=== PATIENT | female | born 1960 | race Caucasian/White ===

== ENCOUNTER → 2017-11-04 11:47 | Outpatient (CLI) | payer OTHER, SELFPAY ==
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
== END ==
PROVIDERS: Family Provider Family Medicine; PCP Family Medicine; Visit Provider Physician Assistant
DX: S60.211A Contusion of right wrist, initial encounter (principal); S50.11XA Contusion of right forearm, initial encounter
CPT/HCPCS: 73090; 73110

== ENCOUNTER → 2017-11-11 13:39 | Outpatient (CLI) | payer OTHER, SELFPAY ==
--- NOTE | 2017-11-11 13:41 | RAD_ITS ---
STUDY: X-RAY - UNILATERAL RIBS ( RIGHT ) WITH CHEST REASON FOR EXAM: Female, 57 years old. Lower right anterior rib pain following injury. TECHNIQUE - RIBS: 4 view(s) of the ribs. TECHNIQUE - CHEST: Single PA view of the chest. COMPARISON: None. FINDINGS - RIBS: Normal visualized ribs without a demonstrated fracture. FINDINGS - CHEST: Hyperinflation. The lungs are clear. There is no demonstrated pleural abnormality. Normal size heart. Normal mediastinum and reddy. Normal visualized pulmonary arteries. Normal visualized aortic arch and descending thoracic aorta. Normal visualized thoracic spine. Normal visualized ribs, clavicles, and shoulders. There is no demonstrated abnormality of the visualized soft tissue structures of the upper abdomen. RAD/Ribs Uni Min 3V w/PA Chest IMPRESSION: RIBS: Normal x-ray examination of the ribs. CHEST: Normal x-ray examination of the chest. Electronically Signed: Amando Goodman MD at 13:58 EDT Tel [phone], Service support ,
== END ==
PROVIDERS: Family Provider Family Medicine; PCP Family Medicine; Visit Provider Physician Assistant
DX: S20.211A Contusion of right front wall of thorax, initial encounter (principal)
CPT/HCPCS: 71101

== ENCOUNTER → 2018-02-02 13:48 | Outpatient (CLI) | payer OTHER, SELFPAY ==
[2018-02-02 14:37] LABS: Absolute Lymphocyte Count 1.59 X10^3/ul (0.83-4.51); Absolute Neutrophil Count 3.3 X10^3/uL (2.0-7.7); Basophil# 0.02 X10^3/uL; Basophil% 0.4 % (0-1); Eosinophils% 3.7 % (0-5); Hematocrit 39.2 % (37-47); Hemoglobin 12.9 g/dl (12.0-15.0); Lymphocyte # 1.59 X10^3/ul (4.0); Lymphocyte % 29.3 % (19-41); Mean Corp Hgb Conc 32.9 g/gl (32-36); Mean Corpuscular Hgb 29.3 pg (27.0-32.0); Mean Corpuscular Volume 88.9 fL (81-99); Mean Platelet Vol. 10.5 fl (6.2-12.0); Monocyte# 0.27 X10^3/uL; Neutrophil # 3.34 X10^3/uL (2.7-7.7); Neutrophil % 61.6 % (47-70); Platelet Count 216 K/mm3 (150-450); RBC Distribution Width CV 13.1 % (11.6-14.6); RBC Distribution Width SD 42.6 fl (35.1-43.9); Red Blood Count 4.41 M/mm3 (4.2-5.4); White Blood Count 5.4 K/mm3 (4.4-11.0)
[2018-02-02 14:48] LABS: POSITIVE COUNT NO; POSITIVE DIFFERENTIAL NO; POSITIVE MORPHOLOGY NO
[2018-02-02 14:57] LABS: Albumin, Serum 3.9 g/dL (3.2-5.0); BUN 16 mg/dL (7-18); BUN/Creat Ratio 19.8 RATIO (10-20); Calcium,Total 9.4 mg/dL (8.5-10.1); Chloride 104 mmol/L (98-107); Creatinine, Serum 0.81 mg/dL (0.55-1.02); EST Glomerular Filtration Rate 77 mL/min (>60); Est Glom Filt Rate - Afr Amer 93 mL/min (>60); Glucose 84 mg/dL (74-106); Magnesium 2.2 mg/dL (1.6-2.6); Phosphorus 3.2 mg/dL (2.5-4.9); Potassium 3.8 mmol/L (3.5-5.1); Sodium Level 139 mmol/L (136-145)
[2018-02-02 15:04] LABS: Vitamin D,25 Hydroxy 38.7 ng/mL (29.95-100.01)
[2018-02-02 15:05] LABS: PTHIN 51.6 pg/mL (18.4-80.1)
[2018-02-02 15:17] LABS: Microalbumin,Random Urine 5.6 mg/L (NO RANGE EST.); Microalbumin:Creatinine Ratio 16.4 mg/g CRE (<30 mg/g CRE)
[2018-02-04 09:54] LABS: Cholesterol 213 mg/dL (200); High Density Lipoprotein 77 mg/dL; Triglycerides 80 mg/dL; Very Low Density Lipoprotein 16 mg/dL (5-40)
[2018-02-04 10:14] LABS: Hemoglobin A1c 5.5 % (4.2-6.3)
== END ==
PROVIDERS: Family Provider Family Medicine; PCP Family Medicine; Visit Provider Internal Medicine Nephrology
DX: N18.2 Chronic kidney disease, stage 2 (mild) (principal); E55.9 Vitamin D deficiency, unspecified
CPT/HCPCS: 36415; 80061; 80069; 82043; 82306; 82570; 83036; 83735; 83970; 85025

== ENCOUNTER → 2018-09-01 12:22 | Outpatient (CLI) | payer OTHER, SELFPAY ==
--- NOTE | 2018-09-01 12:26 | BI_ITS ---
MAMMOGRAPHY - BILATERAL SCREENING REASON FOR EXAM: Female, 57 years old. Routine annual screening examination. PERTINENT HISTORY: Sister with breast cancer. TECHNIQUE: Digital bilateral breast flex (3D mammographic acquisition) in the CC and MLO projections. 2-D mediolateral oblique (MLO) and craniocaudad (CC) views of both breasts were obtained. CAD: Full Field Digital Mammography with Computer Added Detection was performed. COMPARISON: Comparison is made with prior abdomen examination dated June 24, 2017. FINDINGS: Breast Composition: The breasts are heterogeneously dense, which may obscure small masses. There are no dominant masses or suspicious calcifications. No other significant abnormalities are identified. There has been no significant change since the prior study. BI/SCREENING MAMM (CAD), BILAT IMPRESSION: Stable bilateral screening mammogram. Yearly follow-up mammogram recommended. (A) ASSESSMENT CATEGORY: BIRADS Category 1: Negative. A letter regarding these results will be sent to the patient by the facility within 30 days. Approximately 10% of breast cancers are not detected by mammography. A normal mammogram should not delay biopsy of a clinically suspicious abnormality. [id number] Electronically Signed: Amando Goodman, at 13:33 EDT , Service support ,
== END ==
PROVIDERS: Family Provider Family Medicine; PCP Family Medicine; Visit Provider Family Medicine
DX: Z12.31 Encounter for screening mammogram for malignant neoplasm of breast (principal); Z80.3 Family history of malignant neoplasm of breast
CPT/HCPCS: 77063; 77067

== ENCOUNTER 2018-11-22 13:30 | Outpatient (RCR) | payer OTHER, SELFPAY ==
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
--- NOTE | 2018-11-22 13:47 | HP.PTDCSUM ---
HP - PT D/C Summary It has been my pleasure to treat LIAM WELLS under orders from Jose Antonio King MD, for the diagnosis of Positional vertigo chronic for a total of 2 visit(s). Discharge Date: 11/22/18 Please see the following information for a summary of their discharge status. - Subjective Subjective: No bad experiences with minimal R sidelying(it felt wierd after years). No dizzyness. Balance feels OK. No f/u with doctor scheduled. - Overall Improvement % Improvement: 100 - Objective Objective/Function: No dizzyness to day with MSQ positions OR HD/roll test. No nystagmus. Balance looks good. - Goals Goal 1:: Roll on right side to sleep without hesitation or spinning. Goal Progress: Goal Met - Plan Plan: D/C - D/C Information Discharge Comments: Pt doing well and feeling better about rolling on right side. Will contact doctor if dizzyness returns. If there are questions or concerns regarding this patient's physical therapy, please feel free to call me at [phone]. Thank you for the referral of this patient. Sincerely, Ganga Bray, DPT, OCS, CSCS
== END 2018-11-22 19:00 | disposition home or self-care (01) ==
LOC: PT 13:30
PROVIDERS: Family Provider Family Medicine; PCP Family Medicine; Referring Provider Family Medicine; Visit Provider Family Medicine
DX: H81.10 Benign paroxysmal vertigo, unspecified ear (principal)
CPT/HCPCS: 97162; 97530

== ENCOUNTER → 2019-01-24 10:07 | Outpatient (CLI) | payer OTHER, SELFPAY ==
[2017-11-11 13:39] VITALS: BMI 22.1
[2019-01-24 12:31] LABS: Hematocrit 38.9 % (37-47); Hemoglobin 12.7 g/dL (12.0-15.0); Mean Corp Hgb Conc 32.6 g/dL (32-36); Mean Corpuscular Hgb 29.1 pg (27.0-32.0); Mean Corpuscular Volume 89.2 fL (81-99); Platelet Count 231 K/mm3 (150-450); RBC Distribution Width CV 12.6 % (11.6-14.6); Red Blood Count 4.36 M/mm3 (4.2-5.4)
[2019-01-24 12:39] LABS: Albumin, Serum 3.8 g/dL (3.2-5.0); BUN 17 mg/dL (7-18); Calcium,Total 9.3 mg/dL (8.5-10.1); Chloride 106 mmol/L (98-107); Creatinine, Serum 0.85 mg/dL (0.55-1.02); EST Glomerular Filtration Rate 72 mL/min (>60); Est Glom Filt Rate - Afr Amer 87 mL/min (>60); Glucose 87 mg/dL (74-106); Magnesium 2.2 mg/dL (1.6-2.6); Phosphorus 3.3 mg/dL (2.5-4.9); Sodium Level 138 mmol/L (136-145)
[2019-01-24 12:45] LABS: Hemoglobin A1c 5.4 % (4.2-6.3)
[2019-01-24 12:46] LABS: Vitamin D,25 Hydroxy 33.8 ng/mL (29.95-100.01)
[2019-01-24 12:58] LABS: Microalbumin:Creatinine Ratio 184.8 mg/g CRE (<30 mg/g CRE); PTHIN 52.2 pg/mL (18.4-80.1)
== END ==
PROVIDERS: Family Provider Family Medicine; PCP Family Medicine; Visit Provider Internal Medicine Nephrology
DX: R73.01 Impaired fasting glucose (principal); N18.2 Chronic kidney disease, stage 2 (mild); E55.9 Vitamin D deficiency, unspecified
CPT/HCPCS: 36415; 80069; 82043; 82306; 82570; 83036; 83735; 83970; 85027

== ENCOUNTER → 2019-09-07 11:23 | Outpatient (CLI) | payer OTHER, SELFPAY ==
[2019-06-10 10:18] VITALS: BMI 22.1
--- NOTE | 2019-09-07 11:27 | BI_ITS ---
MAMMOGRAPHY - BILATERAL SCREENING REASON FOR EXAM: Female, 58 years old. Routine annual screening examination. PERTINENT HISTORY: Sister with breast cancer. TECHNIQUE: Digital bilateral breast flex (3D mammographic acquisition) in the CC and MLO projections. 2-D mediolateral oblique (MLO) and craniocaudad (CC) views of both breasts were obtained. CAD: Full Field Digital Mammography with Computer Added Detection was performed. COMPARISON: Comparison is made with prior study dated September 01, 2018. FINDINGS: Breast Composition: The breasts are heterogeneously dense, which may obscure small masses. There are no dominant masses or suspicious calcifications. A tissue clip marker is once again seen in the anterior retroareolar region of the right breast. No other significant abnormalities are identified. There has been no significant change since the prior study. BI/SCREENING MAMM (CAD), BILAT IMPRESSION: Stable bilateral screening mammogram. Yearly follow-up mammogram recommended. (A) ASSESSMENT CATEGORY: BIRADS Category 2: Benign. A letter regarding these results will be sent to the patient by the facility within 30 days. Approximately 10% of breast cancers are not detected by mammography. A normal mammogram should not delay biopsy of a clinically suspicious abnormality. [id number] Electronically Signed: Amando Goodman, at 13:14 EDT , Service support ,
== END ==
PROVIDERS: PCP Family Medicine; Referring Provider Family Medicine; Visit Provider Family Medicine
DX: Z12.31 Encounter for screening mammogram for malignant neoplasm of breast (principal); Z80.3 Family history of malignant neoplasm of breast
CPT/HCPCS: 77067

== ENCOUNTER → 2020-01-24 11:13 | Outpatient (CLI) | payer OTHER, SELFPAY ==
[2019-06-10 10:18] VITALS: BMI 22.1
[2020-01-24 13:38] LABS: Absolute Lymphocyte Count 1.26 X10^3/uL (0.83-4.51); Basophil# 0.02 X10^3/uL; Basophil% 0.3 % (0-1); Eosinophil# 0.21 X10^3/uL; Eosinophils% 3.6 % (0-5); Hematocrit 39.7 % (37-47); Hemoglobin 13.2 g/dL (12.0-15.0); Lymphocyte # 1.26 X10^3/ul (4.0); Lymphocyte % 21.4 % (19-41); Mean Corp Hgb Conc 33.2 g/dL (32-36); Mean Corpuscular Volume 90.2 fL (81-99); Mean Platelet Vol. 11.2 fl (6.2-12.0); Monocyte# 0.41 X10^3/uL; NRBC Flagged by Analyzer 0 % (0-5); Neutrophil # 3.96 X10^3/uL (2.7-7.7); Neutrophil % 67.4 % (47-70); Platelet Count 250 K/mm3 (150-450); RBC Distribution Width CV 12.7 % (11.6-14.6); RBC Distribution Width SD 42.1 fl (35.1-43.9); White Blood Count 5.9 K/mm3 (4.4-11.0)
[2020-01-24 13:46] LABS: Microalbumin,Random Urine 9.5 mg/L (NO RANGE EST.); Microalbumin:Creatinine Ratio 59.7 mg/g CRE (<30 mg/g CRE)
[2020-01-24 13:55] LABS: Magnesium 2.1 mg/dL (1.6-2.6)
[2020-01-24 13:59] LABS: PTHIN 58.1 pg/mL (18.4-80.1)
[2020-01-24 14:02] LABS: Vitamin D,25 Hydroxy 43.9 ng/mL
[2020-01-29 15:34] LABS: Albumin, Serum 3.9 g/dL (3.2-5.0); BUN 19 mg/dL (7-18); Calcium,Total 9.1 mg/dL (8.5-10.1); Chloride 104 mmol/L (98-107); Creatinine, Serum 0.76 mg/dL (0.55-1.02); EST Glomerular Filtration Rate 82 mL/min (>60); Est Glom Filt Rate - Afr Amer 100 mL/min (>60); Glucose 76 mg/dL (74-106); Phosphorus 2.8 mg/dL (2.5-4.9); Potassium 4.4 mmol/L (3.5-5.1); Sodium Level 138 mmol/L (136-145)
== END ==
PROVIDERS: PCP Family Medicine; Visit Provider Internal Medicine Nephrology
DX: E55.9 Vitamin D deficiency, unspecified (principal); N18.2 Chronic kidney disease, stage 2 (mild); R80.9 Proteinuria, unspecified
CPT/HCPCS: 36415; 80069; 82043; 82306; 82570; 83735; 83970; 85025

== ENCOUNTER 2020-04-20 09:11 | Emergency (ER) | payer OTHER, SELFPAY ==
[2020-03-26 12:29] VITALS: BMI 22.1
[2020-04-20 09:12] VITALS: BP 126/69; PULSE 59; RESP 17; TEMP 36.4; O2SAT 100; BMI 23.3
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
--- NOTE | 2020-04-20 09:41 | RAD_ITS ---
STUDY: X-RAY - SACRUM/COCCYX REASON FOR EXAM: Female, 59 years old. pt fell backwards this morning TECHNIQUE: 3 view(s) of the sacrum and coccyx were obtained. COMPARISON: None. FINDINGS: Normal bilateral sacroiliac joints. Normal visualized sacral ala and fused sacral bodies. Normal sacrococcygeal junction with a normal angulation. Normal coccygeal segments. The presacral soft tissue structures are unremarkable. RAD/Sacrum-Coccyx min 2 Views IMPRESSION: Normal x-rays of the sacrum and coccyx. Electronically Signed: Jas Bermeo MD at 10:40 EDT Tel , Service support ,
--- NOTE | 2020-04-20 09:42 | ED.VIS.GEN ---
History of Present Illness Chief Complaint: Fall Narrative: This patient is a 59-year-old female who presents after a fall. She was sweeping the barn and she tripped over something falling backward and striking her head on the concrete floor. No loss of consciousness. She is not anticoagulated. She complains of a mild headache as well as mild neck pain and mild pain at her tailbone. No injuries to the extremities. She does report nausea. She otherwise denies recent illness. Past Medical History - Allergies and Home Meds Allergies/Adverse Reactions: Allergies bee venom protein (honey bee) Allergy (Verified 04/20/20 09:12) internal itching clindamycin Allergy (Verified 04/20/20 09:12) Rash Sulfa (Sulfonamide Antibiotics) Allergy (Verified 04/20/20 09:12) Unknown Primary Care Physician: Jose Antonio King MD [Primary Care Provider] - Past Medical History: - - Hypertension Smoking Status: Never smoker Review of Systems All systems negative except as indicated General: Denies: Fever Eyes: Denies: Visual changes - bilaterally ENT: Denies: Bilateral ear pain Cardiovascular: Denies: Chest pain Respiratory: Denies: Dyspnea Gastrointestinal: Reports: Nausea. Denies: Diarrhea Musculoskeletal: Reports: Neck pain. Denies: Myalgias, Arthralgias, Extremity Pain Neurological: Reports: Headache Hematologic: Denies: Easy bruising Allergy: Denies: Uticaria Physical Exam Vital Signs/Narrative: Vital Signs Temp Pulse Resp BP Pulse Ox 04/20/20 09:12 97.6 F L 59 L 17 126/69 H 100 Inital Vital Signs reviewed: Yes General: Well nourished Head: - - Patient has a 2 cm occipital scalp laceration Eyes: Perrl, EOMI ENT: Moist mucous membranes Neck: Supple Cardiovascular: Regular rate, Regular rhythm Respiratory: No distress, CTA bilaterally Abdomen: Soft, Nontender, Nondistended Back: Nontender Extremities: Nontender, - - Active full range of motion x4 Skin: Normal color Neurological: Alert, Oriented x3, - - GCS 15 no focal or lateralizing neurological deficits Psychological: Normal affect Diagnostic/Tx/Re-eval Impressions Brain CT 04/20/20 09:41 IMPRESSION: Mild atrophy no evidence of acute hemorrhage infarct or edema right posterior parietal soft tissue edema and laceration. Stable head CT since August 16, 2014 noting a prominent vascular groove seen in the right occipital and parietal bones less likely a fracture or recurrent fracture. Electronically Signed: Lula Sweeney MD at 10:25 EDT Tel , Service support , Cervical Spine CT 04/20/20 09:41 IMPRESSION: No acute fracture or subluxation. Electronically Signed: Jas Bermeo MD at 10:45 EDT Tel , Service support , Sacrum and Coccyx X-Ray 04/20/20 09:41 IMPRESSION: Normal x-rays of the sacrum and coccyx. Electronically Signed: Jas Bermeo MD at 10:40 EDT Tel , Service support , 04/20/20 09:41 Brain/Head without Contrast [CT] Stat Spine Cervical without Contras [CT] Stat Xray Coccyx [Sacrum-Coccyx min 2 Views] [RAD] Stat - Medical Decision Making Imaging negative as above. No acute fractures no intracranial hemorrhage. Laceration was anesthetized with 4 cc of 1% lidocaine without epinephrine. Wound was cleansed with sterile saline. Laceration was closed with 4 lior. Patient advised on local wound care. She does understand to return for new or worsening symptoms. The patient was discharged. ED Disposition - Plan for ED Patient: Disposition: Home or Assisted Living Diagnosis: Scalp laceration, Closed head injury, Coccyx contusion Instructions: ED Laceration Scalp Sutures or [place], ED Fall Uncertain Cause, ED Head Injury Adult Referrals: Jose Antonio King MD [Primary Care Provider] -
[2020-04-20 11:17] VITALS: BP 137/87; PULSE 72; RESP 19; O2SAT 97
== END 2020-04-20 11:18 | disposition home or self-care (01) ==
PROVIDERS: Emergency Provider Emergency Medicine; PCP Family Medicine
DX: S01.01XA Laceration without foreign body of scalp, initial encounter (principal); S30.0XXA Contusion of lower back and pelvis, initial encounter; W01.198A Fall on same level from slipping, tripping and stumbling with subsequent striking against other object, initial encounter; Y93.89 Activity, other specified; Y92.71 Barn as the place of occurrence of the external cause; Y99.9 Unspecified external cause status; I10 Essential (primary) hypertension
CPT/HCPCS: 12001; 70450; 72125; 72220; 99283

== ENCOUNTER 2020-06-11 11:23 | Emergency (ER) | payer OTHER, SELFPAY ==
[2020-06-11 11:24] VITALS: BP 145/75; PULSE 84; RESP 16; TEMP 36.2; O2SAT 98; BMI 26.8
[2020-06-11 11:32] VITALS: O2SAT 98
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
[2020-06-11] MEDS: HYDROcodone Bitartrate/Apap 5/325 Tablet PO (14:31)
[2020-06-11 14:32] VITALS: BP 138/74; PULSE 71; RESP 16; O2SAT 98
== END 2020-06-11 14:48 | disposition home or self-care (01) ==
PROVIDERS: Emergency Provider Emergency Medicine; PCP Family Medicine
DX: S82.54XA Nondisplaced fracture of medial malleolus of right tibia, initial encounter for closed fracture (principal); S83.92XA Sprain of unspecified site of left knee, initial encounter; S20.211A Contusion of right front wall of thorax, initial encounter; S80.811A Abrasion, right lower leg, initial encounter; V89.2XXA Person injured in unspecified motor-vehicle accident, traffic, initial encounter; Y93.89 Activity, other specified; Y92.9 Unspecified place or not applicable; Y99.9 Unspecified external cause status
CPT/HCPCS: 71101; 73564; 73610; 73630; 99285

== ENCOUNTER → 2020-08-13 12:01 | Outpatient (CLI) | payer OTHER, SELFPAY ==
[2020-08-13 12:53] LABS: Absolute Lymphocyte Count 1.16 X10^3/uL (0.83-4.51); Absolute Neutrophil Count 3.3 X10^3/uL (2.0-7.7); Basophil# 0.03 X10^3/uL; Basophil% 0.6 % (0-1); Eosinophil# 0.17 X10^3/uL; Eosinophils% 3.4 % (0-5); Hematocrit 39.4 % (37-47); Hemoglobin 12.8 g/dL (12.0-15.0); Lymphocyte # 1.16 X10^3/ul (4.0); Lymphocyte % 23.2 % (19-41); Mean Corp Hgb Conc 32.5 g/dL (32-36); Mean Corpuscular Volume 89.1 fL (81-99); Mean Platelet Vol. 10.4 fl (6.2-12.0); Monocyte# 0.35 X10^3/uL; NRBC Flagged by Analyzer 0 % (0-5); Neutrophil # 3.28 X10^3/uL (2.7-7.7); Neutrophil % 65.6 % (47-70); Platelet Count 258 K/mm3 (150-450); RBC Distribution Width CV 12.8 % (11.6-14.6); RBC Distribution Width SD 42.4 fl (35.1-43.9); Red Blood Count 4.42 M/mm3 (4.2-5.4)
[2020-08-13 13:12] LABS: Vitamin D,25 Hydroxy 37.6 ng/mL
[2020-08-13 13:23] LABS: Hemoglobin A1c 5.5 % (3.8-5.6)
[2020-08-13 13:33] LABS: ALB/GLOB Ratio 1.2 RATIO (0.9-2.4); AST(SGOT) 14 U/L (15-37); Alanine Aminotransfer ALT/SGPT 22 U/L (13-56); Albumin, Serum 3.8 g/dL (3.2-5.0); Alkaline Phosphatase 78 U/L (45-117); Anion Gap 5 (5-15); BUN 16 mg/dL (7-18); BUN/Creat Ratio 23.3 RATIO (10-20); Calcium,Total 9.5 mg/dL (8.5-10.1); Chloride 104 mmol/L (98-107); Cholesterol 219 mg/dL (200); Creatinine, Serum 0.69 mg/dL (0.55-1.02); EST Glomerular Filtration Rate 92 mL/min (>60); Est Glom Filt Rate - Afr Amer 111 mL/min (>60); Globulin 3.2 g/dL (2.2-4.2); Glucose 90 mg/dL (74-106); High Density Lipoprotein 72 mg/dL; Potassium 3.9 mmol/L (3.5-5.1); Sodium Level 138 mmol/L (136-145); Thyroid Stim Hormone (TSH) 2.51 uIU/mL (0.358-3.74); Triglycerides 75 mg/dL; Very Low Density Lipoprotein 15 mg/dL (5-40)
== END ==
PROVIDERS: PCP Family Medicine; Visit Provider Family Medicine
DX: I10 Essential (primary) hypertension (principal); E55.9 Vitamin D deficiency, unspecified; R80.9 Proteinuria, unspecified; R73.01 Impaired fasting glucose
CPT/HCPCS: 36415; 80053; 80061; 82306; 83036; 84443; 85025

== ENCOUNTER → 2020-09-25 11:23 | Outpatient (CLI) | payer OTHER, SELFPAY ==
--- NOTE | 2020-09-25 11:29 | BI_ITS ---
MAMMOGRAPHY - BILATERAL SCREENING REASON FOR EXAM: Female, 59 years old. Routine annual screening examination. PERTINENT HISTORY: Sister with breast cancer. TECHNIQUE: Digital bilateral breast mark (3D mammographic acquisition) in the CC and MLO projections. 2-D mediolateral oblique (MLO) and craniocaudad (CC) views of both breasts were obtained. CAD: Full Field Digital Mammography with Computer Added Detection was performed. COMPARISON: Comparison is made with prior study 09/07/2019 and 09/01/2018. FINDINGS: Breast Composition: The breasts are heterogeneously dense, which may obscure small masses. There are no dominant masses or suspicious calcifications. A tissue clip marker is once again seen in the anterior retroareolar region of the right breast. No other significant abnormalities are identified. There has been no significant change since the prior study. BI/SCRN MAMM (CAD)W/MARK BILAT IMPRESSION: Stable bilateral screening mammogram. Yearly follow-up mammogram recommended. (A) ASSESSMENT CATEGORY: BIRADS Category 2: Benign. A letter regarding these results will be sent to the patient by the facility within 30 days. Approximately 10% of breast cancers are not detected by mammography. A normal mammogram should not delay biopsy of a clinically suspicious abnormality. [id number] Electronically Signed: Amando Goodman MD at 9:54 EDT , Service support ,
--- NOTE | 2020-09-25 11:34 | BD_ITS ---
STUDY: DUAL ENERGY X-RAY ABSORPTIOMETRY / DXA REASON FOR EXAM: Female, 59 years old. V76.12ScreeningBONE DENSITY REASON FOR EXAM TECHNIQUE: Bone Mineral Density (BMD) measurements of lumbar spine and bilateral hips were obtained. COMPARISON: None. FINDINGS: Lumbar Spine (L1-L4): g/cm2 (1.048) / T-score (-1.0) / Z-score (0.3) Findings are suggestive of normal bone density with a low fracture risk. Left Femur Total: g/cm2 (0.676) / T-score (-2.6) / Z-score (-1.6) Left Femoral Neck: g/cm2 (0.745) / T-score (-2.1) / Z-score (-0.8) Right Femur Total: g/cm2 (0.668) / T-score (-2.7) / Z-score (-1.7) Right Femoral Neck: g/cm2 (0.759) / T-score (-2.0) / Z-score (-0.7) BD/Dexa Bone Density Study IMPRESSION: The patient is considered osteoporotic as outlined below according to World Dejon Organization (WHO) criteria with a high fracture risk. Reference Information: The T-score is the number of standard deviations above or below the standard which is normal for young adults at their peak bone mineral density. The World Health Organization (WHO) interprets the T-scores as follows: Above -1 Normal bone density Between -1 and -2.5 Osteopenia Equal to / or below -2.5 Osteoporosis As a practical clinical guideline, osteopenia may be graded as follows: Mild -1 through -1.5 Moderate -1.6 through -2.0 Severe -2.1 through -2.4 The Z-score is the number of standard deviations above or below age-matched controls. A Z-score of less than -1.5 would be considered abnormal. References: 1. NIH Osteoporosis and Related Bone Diseases www osteo.org 2. International Society for Clinical Densitometry www iscd.org 3. National Osteoporosis Foundation www nof.org Electronically Signed: Amando Goodman MD at 10:48 EDT , Service support ,
== END ==
PROVIDERS: PCP Family Medicine; Referring Provider Family Medicine; Visit Provider Family Medicine
DX: Z12.31 Encounter for screening mammogram for malignant neoplasm of breast (principal); Z13.820 Encounter for screening for osteoporosis
CPT/HCPCS: 77063; 77067; 77080

== ENCOUNTER → 2020-10-09 15:58 | Outpatient (CLI) | payer OTHER, SELFPAY ==
[2020-10-09 17:57] LABS: Vitamin D,25 Hydroxy 44.6 ng/mL
== END ==
PROVIDERS: PCP Family Medicine; Referring Provider Family Medicine; Visit Provider Family Medicine
DX: E55.9 Vitamin D deficiency, unspecified (principal)
CPT/HCPCS: 36415; 82306

== ENCOUNTER → 2021-02-26 15:05 | Outpatient (CLI) | payer OTHER, SELFPAY ==
[2021-02-26 17:33] LABS: Hematocrit 40.4 % (37-47); Hemoglobin 13.3 g/dL (12.0-15.0); Mean Corp Hgb Conc 32.9 g/dL (32-36); Mean Corpuscular Hgb 29.3 pg (27.0-32.0); Mean Platelet Vol. 10.4 fl (6.2-12.0); Platelet Count 269 K/mm3 (150-450); RBC Distribution Width CV 13.2 % (11.6-14.6); Red Blood Count 4.54 M/mm3 (4.2-5.4); White Blood Count 6.9 K/mm3 (4.4-11.0)
[2021-02-26 17:47] LABS: Albumin, Serum 3.6 g/dL (3.2-5.0); BUN 22 mg/dL (7-18); BUN/Creat Ratio 30.2 RATIO (10-20); Calcium,Total 9.4 mg/dL (8.5-10.1); Chloride 105 mmol/L (98-107); Creatinine, Serum 0.73 mg/dL (0.55-1.02); EST Glomerular Filtration Rate 86 mL/min (>60); Est Glom Filt Rate - Afr Amer 104 mL/min (>60); Glucose 90 mg/dL (74-106); Magnesium 2.3 mg/dL (1.6-2.6); Phosphorus 3.3 mg/dL (2.5-4.9); Potassium 3.9 mmol/L (3.5-5.1); Sodium Level 137 mmol/L (136-145)
[2021-02-26 17:55] LABS: Vitamin D,25 Hydroxy 62.7 ng/mL
[2021-02-26 18:05] LABS: Microalbumin,Random Urine 10.9 mg/L (NO RANGE EST.); Microalbumin:Creatinine Ratio 38.4 mg/g CRE (<30 mg/g CRE)
== END ==
PROVIDERS: PCP Family Medicine; Referring Provider Internal Medicine Nephrology; Visit Provider Internal Medicine Nephrology
DX: E55.9 Vitamin D deficiency, unspecified (principal); R80.9 Proteinuria, unspecified; N18.2 Chronic kidney disease, stage 2 (mild)
CPT/HCPCS: 36415; 80069; 82043; 82306; 82570; 83735; 85027

== ENCOUNTER → 2021-06-09 12:50 | Outpatient (CLI) | payer OTHER, SELFPAY ==
[2021-06-09] MEDS: Zoledronic Acid 5 MG 100 ML 300 MG IV (13:09)
[2021-06-09] MEDS: 0.9% NaCl Peripheral Flush Adult/Peds IV (13:14)
[2021-06-09 13:16] VITALS: BP 114/66; PULSE 54; RESP 16; TEMP 36.4; O2SAT 100
[2021-06-09 13:35] VITALS: BP 116/65; PULSE 60
== END ==
PROVIDERS: PCP Family Medicine; Referring Provider Internal Medicine Endocrinology, Diabetes & Metabolism; Visit Provider Internal Medicine Endocrinology, Diabetes & Metabolism
DX: M81.0 Age-related osteoporosis without current pathological fracture (principal)
CPT/HCPCS: 96365; A4216; J3489

== ENCOUNTER 2021-09-26 09:52 | Outpatient (CLI) | payer OTHER, SELFPAY ==
--- NOTE | 2021-09-26 09:54 | BI_ITS ---
MAMMOGRAPHY - BILATERAL SCREENING REASON FOR EXAM: Female, 60 years old. Routine annual screening examination. PERTINENT HISTORY: Sister with breast cancer. TECHNIQUE: Digital bilateral breast mark (3D mammographic acquisition) in the CC and MLO projections. 2-D mediolateral oblique (MLO) and craniocaudad (CC) views of both breasts were obtained. CAD: Full Field Digital Mammography with Computer Added Detection was performed. COMPARISON: Comparison is made with prior examination dated 09/25/2020 and 09/07/2019. FINDINGS: Breast Composition: The breasts are heterogeneously dense, which may obscure small masses. There are no dominant masses or suspicious calcifications. A tissue clip marker is seen within a 6.8 mm nodule in the retroareolar region of the right breast. Stable small bilateral axillary lymph nodes. No other significant abnormalities are identified. There has been no significant change since the prior study. BI/SCRN MAMM (CAD)W/MARK BILAT IMPRESSION: Stable bilateral screening mammogram. Yearly follow-up mammogram recommended. (A) ASSESSMENT CATEGORY: BIRADS Category 2: Benign. A letter regarding these results will be sent to the patient by the facility within 30 days. Approximately 10% of breast cancers are not detected by mammography. A normal mammogram should not delay biopsy of a clinically suspicious abnormality. [id number] Electronically Signed: Amando Goodman MD at 10:37 EDT ,
== END 2021-09-26 23:59 | disposition home or self-care (01) ==
LOC: OPBI 09:53
PROVIDERS: PCP Family Medicine; Visit Provider Family Medicine
DX: Z12.31 Encounter for screening mammogram for malignant neoplasm of breast (principal); Z80.3 Family history of malignant neoplasm of breast
CPT/HCPCS: 77063; 77067

== ENCOUNTER → 2022-01-21 | Outpatient (CLI) | payer OTHER, SELFPAY ==
[2022-01-21 18:09] LABS: Hematocrit 37.4 % (37-47); Hemoglobin 12.5 g/dL (12.0-15.0); Mean Corp Hgb Conc 33.4 g/dL (32-36); Mean Corpuscular Hgb 29.5 pg (27.0-32.0); Mean Corpuscular Volume 88.2 fL (81-99); Mean Platelet Vol. 10.5 fl (6.2-12.0); Platelet Count 218 K/mm3 (150-450); RBC Distribution Width CV 12.9 % (11.6-14.6); RBC Distribution Width SD 41.5 fl (35.1-43.9); Red Blood Count 4.24 M/mm3 (4.2-5.4); White Blood Count 5.4 K/mm3 (4.4-11.0)
[2022-01-21 18:25] LABS: Albumin, Serum 3.6 g/dL (3.2-5.0); BUN 20 mg/dL (7-18); BUN/Creat Ratio 17.5 RATIO (10-20); Calcium,Total 8.8 mg/dL (8.5-10.1); Chloride 108 mmol/L (98-107); Creatinine, Serum 1.14 mg/dL (0.55-1.02); EST Glomerular Filtration Rate 51 mL/min (>60); Est Glom Filt Rate - Afr Amer 62 mL/min (>60); Glucose 142 mg/dL (74-106); Magnesium 2.2 mg/dL (1.6-2.6); Phosphorus 2.5 mg/dL (2.5-4.9); Potassium 3.6 mmol/L (3.5-5.1); Sodium Level 141 mmol/L (136-145)
[2022-01-21 18:29] LABS: Vitamin D,25 Hydroxy 62.3 ng/mL
[2022-01-21 19:10] LABS: Microalbumin,Random Urine 13.4 mg/L (NO RANGE EST.); Microalbumin:Creatinine Ratio 10.7 mg/g CRE (<30 mg/g CRE)
[2022-01-22 08:36] LABS: PTHIN 61.6 pg/mL (18.4-80.1)
== END | disposition home or self-care (01) ==
LOC: MTLAB 16:54
PROVIDERS: PCP Family Medicine; Referring Provider Internal Medicine Nephrology; Visit Provider Internal Medicine Nephrology
DX: N18.2 Chronic kidney disease, stage 2 (mild) (principal); E55.9 Vitamin D deficiency, unspecified; R80.9 Proteinuria, unspecified
CPT/HCPCS: 36415; 80069; 82043; 82306; 82570; 83735; 83970; 85027

== ENCOUNTER 2022-05-22 08:30 | Outpatient (RCR) | payer OTHER, SELFPAY ==
--- NOTE | 2022-04-24 08:55 | HP.PTEVAL_ITS ---
Patient's Visit Information LIAM WELLS is a 61 year old F referred to Physical Therapy by Dr. Jose Antonio King MD with a diagnosis of sciatica. Date of Evaluation: 04/24/22 Physical Therapist: Ganga Bray, RAMYAT, OCS, CSCS - Visit Plan Frequency: 3x /Week Duration: 4-6 Weeks Plan: 3x/week for 3-6 weeks for... 1. rollpout and stretch psaos and quads and progres to HEP. 2. Ensure NS position ex at home going well and progress to more aggressive LB flexion ROM and then core mat to WB strength. 3. Tens with Mh if needed. - Subjective L LBP and into lateral pelvis and to mid quad. It started in September intermittently but has become constant. Takes advil daily which helped but not as much anymore. Started insidiously in september. No apparent pattern. 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 Walking may feel bet ter, sitting is not good. No numbness ortingling, no bowel or bladder problems. Sleep is pretty good on L side with leg straight. Exit shair is not easy. 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 No other hobbies, No regular exercises. Has [employer] track skier, inconsistent. - Pain L LBP and leg Pain Intensity (Out of 10): 1 Pain Intensity Range: 0, 8 Comment: coughing hurts - Objective Walks gingerly but I. Transfers slowly and pain getting to stand but I. LB AROM ext mod limited, flexion slow and min limited, SB are OK. - slump, - SLR. reflexes 2/3 aptella and pelg1pupa. Sensation LE WNL to gross lgiht touch. Strength LE 4/5 without myotomal abnormalities. Tender to PA lower L/S centrally. Soft tissue just slightlyin L hip. quads, psoa max tight, HS min tight. repeated eil. Produces L quad pain. repeated carol NE pain but better ROM. .Posture is increased lordosis. - Balance/Special Test Scores Oswestry Low Back Score: 17 - Goals Goal 1:: I management of NS position and back pain with posture and HEP Goal Time Frame: 4-6 Weeks Goal 2:: Pt able to exit chair without hesitation Goal Time Frame: 4-6 Weeks Goal 3:: Patient notice 75% improvement in overall pain to 2/10 at worst. Goal Time Frame: 4-6 Weeks Goal 4:: Oswestry score 10 or better Goal Time Frame: 4-6 Weeks - Rehabilitation Potential Physical Therapy Diagnosis: Sciatica likely degenerative,stenotic Rehabilitation Potential: Good - Anticipated Interventions Patient/Client Instruction: Educate patient on: Condition, Plan of Care For the Purpose of:: To decrease pain, To increase ROM, To improve muscle performance and motor function, To increase tolerance to activity/condition/position, To improve ability of physical actions for home/community/work/leisure Therapeutic Exercise to Include: Strength training, Postural training, Flexibilty training, Gait and locomotor training, Passive ROM, Active ROM, Dynamic Lumbar Stabilization For the Purpose of:: To decrease pain, To increase ROM, To improve nutrient delivery to tissue, To improve muscle performance and motor function, To increase tolerance to activity/condition/position Manual Therapy Techniques to Include: Mobilization, Passive ROM, Soft tissue mobilization For the Purpose of:: To decrease pain, To increase ROM TENS: Yes Thermo therapy (hot pack): Yes For the Purpose of:: To decrease pain, To increase ROM, To improve muscle performance and motor function, To increase tolerance to activity/conditi on/position, To improve ability of physical actions for home/community/work/leisure, To improve gait and locomotor functions Thank you for the opportunity to evaluate your patient. For Medicare and Medicare HMO plans, please review the plan of care and approve it. It will need to be FAXED BACK to us at [phone] for Medicare purposes. For Medicare only, by signing this I certify the plan of care. Please let me know if there are questions or concerns regarding this plan of care. Physician Signature: Date:
--- NOTE | 2022-05-22 08:54 | HP.PTREVAL ---
Dr. Jose Antonio King MD, It has been my pleasure to treat LIAM WELLS over the last 9 visits for sciatica. Please see the progress note below for an update on the physical therapy plan of care! Subjective: Getting better. It really doesn't hurt when I get up in am. Maybe some painanterior L leg in am but otherwise is good., Exercises really help and especially if she eeps moving. No horrible spells lately. Just a twinge now and then. Carrying buckets still using half buckets instead of full buckets. Activities are pretty normal. Worst pain in last week was 4/10 in am. Sleeping is OK once she finds the right spot. To doctor in july. HEP getting done daily. Able to focus on NS position. Objective/Function: Still slowly exitting chair sometimes. Walking well and not overly focussed on pain. L/S extension mod limited adn tight, not painful, flexion min deficits and no pain, SB are fine. R knee sore adn more limiting than anything. Overall doing very well with back and wishes to continue at home and f/u in 3 weeks as needed. Plan Plan: f/u 3 weeks as needed to progress if needed and d/c Balance/Gait/Functional tests - Balance/Special Test Scores Oswestry Low Back Score: 3 Goals Goal 1:: I management of NS position and back pain with posture and HEP Goal Time Frame: 4-6 Weeks Goal Progress: Goal Met Goal 2:: Pt able to exit chair without hesitation Goal Time Frame: 4-6 Weeks Goal Progress: Progressing Goal 3:: Patient notice 75% improvement in overall pain to 2/10 at worst. Goal Time Frame: 4-6 Weeks Goal Progress: Goal Met Goal 4:: Oswestry score 10 or better Goal Time Frame: 4-6 Weeks Goal Progress: Goal Met Anticipated Interventions Patient/Client Instruction: Educate patient on: Condition, Plan of Care For the Purpose of:: To decrease pain, To increase ROM, To improve muscle performance and motor function, To increase tolerance to activity/condition/position, To improve ability of physical actions for home/community/work/leisure Therapeutic Exercise to Include: Strength training, Postural training, Flexibilty training, Gait and locomotor training, Passive ROM, Active ROM, Dynamic Lumbar Stabilization For the Purpose of:: To decrease pain, To increase ROM, To improve nutrient delivery to tissue, To improve muscle performance and motor function, To increase tolerance to activity/condition/position Manual Therapy Techniques to Include: Mobilization, Passive ROM, Soft tissue mobilization For the Purpose of:: To decrease pain, To increase ROM TENS: Yes Thermo therapy (hot pack): Yes For the Purpose of:: To decrease pain, To increase ROM, To improve muscle performance and motor function, To increase tolerance to activity/condition/position, To improve ability of physical actions for home/community/work/leisure, To improve gait and locomotor functions Please do not hesitate to contact me at [phone] by phone or if you have questions or concerns regarding this new plan of care! Sincerely, Ganga Bray, DPT, OCS, CSCS
--- NOTE | 2022-07-27 08:10 | HP.PT.NRP ---
LIAM WELLS was seen in my office for initial evaluation on 04/24/22. The following Plan of Care was established for this patient: Initial Frequency: 3x /Week Initial Duration: 4-6 Weeks Patient/Client Instruction: Educate patient on: Condition, Plan of Care For the Purpose of:: To decrease pain, To increase ROM, To improve muscle performance and motor function, To increase tolerance to activity/condition/position, To improve ability of physical actions for home/community/work/leisure Therapeutic Exercise to Include: Strength training, Postural training, Flexibilty training, Gait and locomotor training, Passive ROM, Active ROM, Dynamic Lumbar Stabilization For the Purpose of:: To decrease pain, To increase ROM, To improve nutrient delivery to tissue, To improve muscle performance and motor function, To increase tolerance to activity/condition/position Manual Therapy Techniques to Include: Mobilization, Passive ROM, Soft tissue mobilization For the Purpose of:: To decrease pain, To increase ROM TENS: Yes Thermo therapy (hot pack): Yes For the Purpose of:: To decrease pain, To increase ROM, To improve muscle performance and motor function, To increase tolerance to activity/condition/position, To improve ability of physical actions for home/community/work/leisure, To improve gait and locomotor functions This patient was last seen in our office 05/22/22. Pertinent comments regarding their Physical therapy will appear below: Pt seen 9 visits of POC and was 90% better. She was to f/u 3 weeks later but did not schedule or attend. at this point, it has been over 2 months and I will discontinue due to nonattendance. At this point I will be discontinuing this patient from physical therapy. I would be happy to see this patient again in the future if found appropriate by the physician. Thank you! Ganga Bray, DPT, OCS, CSCS Balance/Gait/Functional tests - Balance/Special Test Scores Oswestry Low Back Score: 3
== END 2022-05-22 19:00 | disposition home or self-care (01) ==
LOC: PT 08:30
PROVIDERS: PCP Family Medicine; Referring Provider Family Medicine; Visit Provider Family Medicine
DX: M54.40 Lumbago with sciatica, unspecified side (principal)
CPT/HCPCS: 97110; 97140; 97162; 97530

== ENCOUNTER → 2022-07-07 | Outpatient (CLI) | payer OTHER, SELFPAY ==
[2022-07-07 08:46] VITALS: BP 129/64; PULSE 76; RESP 16; TEMP 36.3; O2SAT 100
[2022-07-07] MEDS: 0.9% NaCl Peripheral Flush Adult/Peds IV (08:53)
[2022-07-07] MEDS: Zoledronic Acid 5 MG 100 ML 300 MG IV (09:00)
== END | disposition home or self-care (01) ==
LOC: MEDOUTP 08:44
PROVIDERS: PCP Family Medicine; Referring Provider Internal Medicine Endocrinology, Diabetes & Metabolism; Visit Provider Internal Medicine Endocrinology, Diabetes & Metabolism
DX: M81.0 Age-related osteoporosis without current pathological fracture (principal)
CPT/HCPCS: 96365; A4216; J3489

== ENCOUNTER → 2022-09-21 | Outpatient (CLI) | payer OTHER, SELFPAY ==
--- NOTE | 2022-09-21 10:12 | MRI_ITS ---
ACR Level 3 findings have been noted. An addendum which confirms receipt of the report will follow. STUDY: MRI LUMBAR SPINE WITHOUT CONTRAST REASON FOR EXAM: Female, 61 years old. pain left side of back and down left leg TECHNIQUE: Standardized fat and water weighted pulse sequences were obtained in the sagittal and axial planes. COMPARISON: X-ray lumbar spine dated September 01, 2022 FINDINGS: There is a 3 cm mixed signal cystic lesion (image 24/27 series 6) in the anterior aspect of superior pole of the kidney that is of intermediate suspicion and incomplete the evaluated on this study. A dedicated renal ultrasound is recommended and if a solid or complex process is present a follow-up CT of the abdomen and pelvis with and without contrast. A second simple of the small to moderate-sized cyst is present in the posterior aspect of superior pole of the left kidney measuring 3.15 x 2.92 cm. Normal lumbar lordosis. There is a levoscoliosis of the lumbar spine. Normal conus medullaris that terminates at the T12-L1 level. No marrow edema or fractures seen. No aggressive abnormality is present. T12-L1: Diffuse disc desiccation with mild disc space narrowing and asymmetric annular bulging. Small Schmorl''s nodes. Normal bilateral facet joints. Normal central canal and bilateral lateral recesses. Normal bilateral intervertebral neural foramina. L1-2: Moderate disc space narrowing with a diffuse disc bulge/spur complex in addition to a very large midline to left paracentral focus of extruded disc material measuring 1.50 x 0.97 x 1.86 cm in diameter and causes severe central canal stenosis and left lateral recess stenosis with nerve root compression. Mild facet joint hypertrophy and mild bilateral foraminal stenosis. L2-3: Moderate disc space narrowing with minimal annular bulging. Normal central canal and bilateral lateral recesses. Normal bilateral intervertebral neural foramina. L3-4: Normal endplates. Diffuse disc desiccation with mild posterior disc space narrowing and minimal annular bulging. Mild to moderate facet joint hypertrophy. Mild to moderate right foraminal stenosis with nerve root impingement. Normal left neural foramen. L4-5: Normal endplates. Diffuse disc desiccation with mild disc space narrowing but no significant herniation or bulging of the disc. Moderate facet joint and ligamenta flava hypertrophy contributing to mild central canal stenosis. Mild bilateral foraminal stenosis. L5-S1: Normal endplates. Anterolisthesis of L5 on S1 of 2 mm. Moderate to severe disc space narrowing with minimal posterior annular bulging and shallow midline disc protrusion. Mild to moderate bilateral facet joint hypertrophy. Mild bilateral foraminal stenosis. Normal central canal and bilateral lateral recesses. Normal visualized sacral ala. There is mild paraspinal muscular atrophy. MRI/Spine Lumbar (Routine) IMPRESSION: 1. There is a 3 cm mixed signal cystic lesion (image 24/27 series 6) in the anterior aspect of superior pole of the kidney that is of intermediate suspicion and incomplete the evaluated on this study. A dedicated renal ultrasound is recommended and if a solid or complex process is present a follow-up CT of the abdomen and pelvis with and without contrast. 2. A second simple of the small to moderate-sized cyst is present in the posterior aspect of superior pole of the left kidney measuring 3.15 x 2.92 cm. 3. L1-L2 very large midline to left paracentral focus of extruded disc material measuring 1.50 x 0.97 x 1.86 cm in diameter and causes severe central canal stenosis and left lateral recess stenosis with nerve root compression. 4. Multilevel degenerative changes, as described above. Electronically Signed: Chris Urena MD at 12:42 EDT ,
== END | disposition home or self-care (01) ==
PROVIDERS: PCP Family Medicine
DX: M54.16 Radiculopathy, lumbar region (principal)
CPT/HCPCS: 72148

== ENCOUNTER → 2022-09-28 | Outpatient (CLI) | payer OTHER, SELFPAY ==
--- NOTE | 2022-09-28 15:55 | US_ITS ---
STUDY: RENAL ULTRASOUND - COMPLETE REASON FOR EXAM: Female, 61 years old. ABNORMALITY ON MRI TECHNIQUE: Ultrasound evaluation of the kidneys was performed with real-time and static lehman-scale imaging. COMPARISON: None. FINDINGS: RIGHT KIDNEY: Normal location of the right kidney, which is normal in size. The right kidney measures 10.3 x 3.8 x 4.4 cm. There is a normal cortex of the right kidney. The renal cortex measures 1.5 cm. There is no right renal mass or cyst. There are no right renal calculi. There is no right hydronephrosis. DISTAL RIGHT URETER: There is non-visualization of the distal right ureter. There is no demonstrated right ureterovesical junction calculus. There is a visualized right ureteral jet. LEFT KIDNEY: Normal location of the left kidney, which is normal in size. The left kidney measures 10.7 x 5 x 5.5 cm. There is a normal cortex of the left kidney. The renal cortex measures 1.6 cm. There is a cyst measuring 3.6 x 3 x 3.2 cm. There are no left renal calculi. There is no left hydronephrosis. DISTAL LEFT URETER: There is non-visualization of the distal left ureter. There is no demonstrated left ureterovesical junction calculus. There is a visualized left ureteral jet. BLADDER: The distended urinary bladder has a volume of 511.39 ml. There is a normal wall thickness of the distended urinary bladder. There is no demonstrated mass within the urinary bladder. There are no demonstrated bladder calculi The questionable complex cyst in the left kidney noted on MRI is not visualized. CT recommended for further evaluation. US/Kidney and Bladder IMPRESSION: Simple cyst in the upper pole of the left kidney.. Questionable complex cyst on MRI not visualized on ultrasound. CT recommended Electronically Signed: Nathaniel Gil MD at 22:05 EDT ,
== END | disposition home or self-care (01) ==
LOC: US 15:53
PROVIDERS: PCP Family Medicine; Referring Provider Family Medicine; Visit Provider Family Medicine
DX: N28.1 Cyst of kidney, acquired (principal)
CPT/HCPCS: 76770

== ENCOUNTER → 2023-01-04 | Outpatient (CLI) | payer OTHER, SELFPAY ==
[2023-01-04 16:43] LABS: Absolute Lymphocyte Count 1.29 X10^3/uL (0.83-4.51); Absolute Neutrophil Count 2.9 X10^3/uL (2.0-7.7); Basophil# 0.03 X10^3/uL; Basophil% 0.6 % (0-1); Eosinophil# 0.21 X10^3/uL; Eosinophils% 4.3 % (0-5); Hematocrit 40.6 % (37-47); Hemoglobin 13.2 g/dL (12.0-15.0); Lymphocyte # 1.29 X10^3/ul (0.83-4.51); Lymphocyte % 26.4 % (19-41); Mean Corp Hgb Conc 32.5 g/dL (32-36); Mean Corpuscular Hgb 29.8 pg (27.0-32.0); Mean Corpuscular Volume 91.6 fL (81-99); Mean Platelet Vol. 10.7 fl (6.2-12.0); Monocyte# 0.45 X10^3/uL; Monocyte% 9.2 % (0-10); NRBC Flagged by Analyzer 0 % (0-5); Neutrophil # 2.88 X10^3/uL (2.7-7.7); Neutrophil % 59.1 % (47-70); Platelet Count 249 K/mm3 (150-450); RBC Distribution Width SD 44.2 fl (35.1-43.9); Red Blood Count 4.43 M/mm3 (4.2-5.4); White Blood Count 4.9 K/mm3 (4.4-11.0)
[2023-01-04 17:06] LABS: ALB/GLOB Ratio 1.2 RATIO (0.9-2.4); AST(SGOT) 28 U/L (15-37); Alanine Aminotransfer ALT/SGPT 46 U/L (13-56); Albumin, Serum 3.9 g/dL (3.2-5.0); Alkaline Phosphatase 85 U/L (45-117); Anion Gap 4 (5-15); BUN 20 mg/dL (7-18); Calcium,Total 9.7 mg/dL (8.5-10.1); Chloride 107 mmol/L (98-107); Cholesterol 221 mg/dL (200); Creatinine, Serum 0.87 mg/dL (0.55-1.02); EST Glomerular Filtration Rate 70 mL/min (>60); Est Glom Filt Rate - Afr Amer 84 mL/min (>60); Globulin 3.3 g/dL (2.2-4.2); Glucose 98 mg/dL (74-106); High Density Lipoprotein 63 mg/dL; Potassium 4.1 mmol/L (3.5-5.1); Protein, Total 7.2 g/dL (6.4-8.2); Sodium Level 139 mmol/L (136-145); Triglycerides 179 mg/dL; Very Low Density Lipoprotein 36 mg/dL (5-40)
[2023-01-04 17:14] LABS: Microalbumin,Random Urine 9.2 mg/L (NO RANGE EST.); Microalbumin:Creatinine Ratio 10.1 mg/g CRE (<30 mg/g CRE)
[2023-01-04 17:22] LABS: Vitamin D,25 Hydroxy 51.7 ng/mL
== END | disposition home or self-care (01) ==
LOC: BIMLAB 15:13
PROVIDERS: PCP Internal Medicine; Referring Provider Internal Medicine; Visit Provider Internal Medicine
DX: I10 Essential (primary) hypertension (principal); M81.0 Age-related osteoporosis without current pathological fracture; R80.9 Proteinuria, unspecified
CPT/HCPCS: 36415; 80053; 80061; 82043; 82306; 82570; 85025

== ENCOUNTER → 2023-01-08 | Outpatient (CLI) | payer OTHER, SELFPAY ==
--- NOTE | 2023-01-08 15:11 | BI_ITS ---
MAMMOGRAPHY - BILATERAL SCREENING 3-D TOMOSYNTHESIS REASON FOR EXAM: Female, 62 years old. Routine screening PERTINENT HISTORY: Sister with breast cancer.. TECHNIQUE: 2-D mammograms and 3-D Tomosynthesis of the breast (s) were performed. CAD was performed. COMPARISON: 09/25/2020 FINDINGS: The breast composition is composed of scattered fibroglandular density. Scattered benign calcifications are seen. No dense spiculated masses or suspicious microcalcifications are identified. No architectural distortion is identified. There is no skin thickening or retraction. There has been no significant change since the prior study. BI/SCRN MAMM (CAD)W/MARK BILAT IMPRESSION: No mammographic signs of malignancy. Routine yearly mammograms recommended. ASSESSMENT CATEGORY: BIRADS Category 2: Benign. A letter regarding these results will be sent to the patient by the facility within 30 days. FOLLOW UP RECOMMENDATION: Yearly follow up mammogram recommended. (A) Approximately 10% of breast cancers are not detected by mammography. A normal mammogram should not delay biopsy of a clinically suspicious abnormality. Electronically Signed: Sandip Shafer MD at 22:06 EDT ,
== END | disposition home or self-care (01) ==
PROVIDERS: PCP Internal Medicine; Referring Provider Internal Medicine; Visit Provider Internal Medicine
DX: Z12.31 Encounter for screening mammogram for malignant neoplasm of breast (principal); Z80.3 Family history of malignant neoplasm of breast
CPT/HCPCS: 77063; 77067

== ENCOUNTER → 2023-04-15 | Outpatient (CLI) | payer OTHER, SELFPAY ==
[2023-04-15 17:33] LABS: Hematocrit 42.6 % (37-47); Hemoglobin 13.9 g/dL (12.0-15.0); Mean Corp Hgb Conc 32.6 g/dL (32-36); Mean Corpuscular Hgb 29.8 pg (27.0-32.0); Mean Corpuscular Volume 91.4 fL (81-99); Mean Platelet Vol. 10.6 fl (6.2-12.0); Platelet Count 262 K/mm3 (150-450); RBC Distribution Width CV 12.5 % (11.6-14.6); RBC Distribution Width SD 41.6 fl (35.1-43.9); Red Blood Count 4.66 M/mm3 (4.2-5.4); White Blood Count 5.7 K/mm3 (4.4-11.0)
[2023-04-15 18:14] LABS: Microalbumin,Random Urine 13.1 mg/L (NO RANGE EST.); Microalbumin:Creatinine Ratio 11.9 mg/g CRE (<30 mg/g CRE); Protein, Urine (Random) 7.4 mg/dL (<11.9); Protein:Creat Ratio 67 mg/g CRE (0-200)
[2023-04-15 18:30] LABS: Albumin, Serum 3.9 g/dL (3.2-5.0); BUN 22 mg/dL (7-18); BUN/Creat Ratio 21.6 RATIO (10-20); Calcium,Total 9.7 mg/dL (8.5-10.1); Chloride 105 mmol/L (98-107); Creatinine, Serum 1.02 mg/dL (0.55-1.02); EST Glomerular Filtration Rate 58 mL/min (>60); Est Glom Filt Rate - Afr Amer 70 mL/min (>60); Glucose 117 mg/dL (74-106); Magnesium 2.5 mg/dL (1.6-2.6); Phosphorus 3.2 mg/dL (2.5-4.9); Potassium 3.9 mmol/L (3.5-5.1); Sodium Level 138 mmol/L (136-145)
[2023-04-16 09:51] LABS: PTHIN 62.2 pg/mL (18.4-80.1)
== END | disposition home or self-care (01) ==
LOC: MTLAB 14:16
PROVIDERS: PCP Internal Medicine; Referring Provider Internal Medicine Nephrology; Visit Provider Internal Medicine Nephrology
DX: E55.9 Vitamin D deficiency, unspecified (principal); N18.31 Chronic kidney disease, stage 3a; R80.9 Proteinuria, unspecified
CPT/HCPCS: 36415; 80069; 82043; 82306; 82570; 83735; 83970; 84156; 85027

== ENCOUNTER 2023-05-24 07:22 | Day surgery (SDC) | payer OTHER, SELFPAY ==
[2023-05-24] VITALS (7 sets, daily range): BP systolic 108–139; BP diastolic 60–74; PULSE 58–80; RESP 16; TEMP 36.3–37; O2SAT 97–100; BMI 24.9
--- NOTE | 2023-05-24 | COLBX_PTH ---
PATIENT: LIAM WELLS LOC: EN U#:[id number] AGE/SX: 62/F ROOM: RE05/24/[address]: Dr. Radha Porter MD : 1960 BED: DIS: 05/24/2023 SPEC #: [id number] RECD: 05/24/23 13:51 STATUS: LINNEA ANDREW #: [id number] TEODORO: 05/24/23 00:[address]: Radha Porter DEPT: SURGICAL PATHOLOGY RECD BY: Arcelia Spaulding ENTERED: 05/24/23 13:52 SP TYPE: COLON BX RENE DR: Dr. Miesha Foster MD Tissues: A - Sigmoid colon biopsy B - Rectum, NOS Procedures: Surgery Specimen Level IV HEADER OPERATION: Colonoscopy - open access, biopsy PRE-OP DIAGNOSIS: Colon cancer screening TISSUE SUBMITTED: A - Sigmoid polyp biopsy, B - Rectum polyps x2 biopsy MICROSCOPIC DIAGNOSIS A. Sigmoid polyp, biopsy: Tubular adenoma. B. Rectum polyps x2, biopsy: Hyperplastic polyp. RAMAKRISHNA:mandeep 05/25/2023 MICROSCOPIC DESCRIPTION Slides are reviewed. GROSS DESCRIPTION A - Received in fixative is one container labeled with the patient's name and designated sigmoid polyp biopsy. The specimen consists of multiple irregular fragments of light toro soft tissue that in aggregate measure 0.6 x 0.5 x 0.1 cm. The specimen is totally submitted in one cassette. B - Received in fixative is one container labeled with the patient's name and designated rectum polyp x2 biopsy. The specimen consists of two irregular fragments of light toro soft tissue that in aggregate measure 0.5 x 0.3 x 0.1 cm. The specimen is totally submitted in one cassette. / RAMAKRISHNA:mandeep 05/24/2023 TC:1 CPT: 22816 x2
[2023-05-24] MEDS: Lactated Ringers 1,000 ML 15 ML IV (07:50)
--- NOTE | 2023-05-24 08:07 | HP.PCM_ITS ---
HPI - General General Date of Admission: 05/24/23 HPI Narrative LIAM WELLS, is a 62 F who presents for screening colonoscopy. Patient had a colonoscopy 10 years ago negative per patient. Patient denies any family history of colon cancer. Patient has bowel movements almost every day denies any blood. Patient denies any chronic abdominal pain/nausea/vomiting/reflux. PFSH Medical History (Updated 05/19/23 @ 11:25 by Tila Toribio) Alcohol use Arthritis Back pain Cataracts, bilateral Child Colon cancer screening Fractures Gastric reflux Hypertension Injury of head and neck Non-smoker Osteoporosis Persistent headaches Post-menopausal Preventative health care Proteinuria Stage 3a chronic kidney disease (CKD) Vertigo Home Medications lisinopril 5 mg tablet 1 tab PO QHS 90 days ##90 11/04/17 [History Last Taken Unknown] turmeric root extract 1,053 mg tablet 1,076 mg PO DAILY 05/04/22 [History Last Taken Unknown] acetaminophen 650 mg tablet,extended release (Tylenol Arthritis Pain) 650 mg PO Q12H 09/25/22 [History Last Taken Unknown] cyclobenzaprine 5 mg tablet 5 mg PO TID PRN muscle spasm 09/25/22 [History Last Taken Unknown] cholecalciferol (vitamin D3) 125 mcg (5,000 unit) capsule 3,000 unit PO DAILY 01/04/23 [History Last Taken Unknown] denosumab 60 mg/mL subcutaneous syringe 60 mg subcut [id number] 01/04/23 [History Last Taken Unknown] diclofenac sodium 1 % topical gel (Voltaren Arthritis Pain) 2 g topical ONCE 01/04/23 [History Last Taken Unknown] pyridoxine (vitamin B6) 100 mg tablet 100 mg PO DAILY 01/04/23 [History Last Taken Unknown] Allergy/AdvReac Type Severity Reaction Status Date / Time bee venom protein (honey bee) Allergy Intermediate internal Verified 05/24/23 07:45 itching clindamycin Allergy Mild Rash Verified 05/24/23 07:45 Sulfa (Sulfonamide Allergy Mild Rash Verified 05/24/23 07:45 Antibiotics) Family History (Updated 02/18/23 @ 14:04 by Ritu Black) Mother Lung cancer Myocardial infarction Heart disease Hypertension Cancer SKIN-BASAL CELL Sister Osteoporosis Breast cancer Other Dementia Surgical History (Updated 05/19/23 @ 11:25 by Tila Toribio) Hx of colonoscopy Hx of decompressive lumbar laminectomy Social History Smoking Status: Never smoker alcohol intake: current alcohol intake frequency: holidays/special occasions only Alcohol type: wine substance use type: does not use what type of physical activity do you participate in: weight training frequency: 3-4 times per week seatbelt use: always do you feel safe at home: Yes Past Medical/Surgical History Planned Operation Planned Operative Procedure/s: CSCOPE OA Previous Hospitalizations/Surgeries HX Hospitalizations: No Any Problems With Anesthesia: No You/Your Family Experience Fever (Hyperthermia) With Anes: No Cholinesterase deficiency: No Cardiovascular Hx Hypertension: Yes (CONTROLLED WITH MED) Respiratory Hx Chronic Obstructive Pulmonary Disease (COPD): No Hx Asthma: No Hx Emphysema: No Hx Sleep Apnea: No Hx Respiratory Tract Infection/Cold (presently): No Do You Snore Loudly (louder than talking or can be heard): Yes Do You Often Feel Tired/ Fatigued/ Sleepy Dring Daytime?: No Has Anyone Observed You Stop Breathing During Sleep?: No Result (for STOP score): Positive Smoking Status: Never smoker Neurological Hx Seizures: No Does patient have nerve stimulator: No Reproduction : No Genitourinary Hx Renal Disease: Yes (proteinuria-see Dr. Allen) Endocrine Hx Diabetes: No Miscellaneous Hx Cancer: No Recent Exposure to Contagious Disease: No Allergies bee venom protein (honey bee) Allergy (Intermediate, Verified 05/24/23 07:45) internal itching clindamycin Allergy (Mild, Verified 05/24/23 07:45) Rash Sulfa (Sulfonamide Antibiotics) Allergy (Mild, Verified 05/24/23 07:45) Rash Discharge Is Pt Admitted From a Senior Care, or a [facility]: No After D/C, Where Do you Plan to Go: Return Home From the [facility] History Number of Risk Factors: 1 Vital Signs Vital Signs Vital Signs: 05/24/23 07:48 05/24/23 07:48 Temperature 97.8 F Temperature Source Temporal Pulse Rate 80 Respiratory Rate 16 Respiratory Pattern Normal Blood Pressure 119/74 Blood Pressure Mean 89 Blood Pressure Source Monitor Blood Pressure Position Sitting Pulse Ox 99 Oxygen Delivery Method Room Air Weight Weight: 149 lb 14.629 oz Body Mass Index (BMI) 24.9 Physical Exam Const alert, oriented x3 and no apparent distress HEENT normocephalic and head/scalp atraumatic Resp normal respiratory effort Cardio regular rate GI soft to palpation and non-tender; Negative for non-distended Palpation: Negative for guarding Extremity no clubbing, cyanosis or edema Skin no rashes or lesions noted Neuro CN's II-XII intact bilaterally Psych mental status grossly normal Assessment & Plan Assessment/Plan (1) Colon cancer screening: Surgery Risks - Colonoscopy I discussed with the patient the risks of the procedure: Yes Risks Include but are not Limited To: Risks include but are not limited to: Bleeding, perforation requiring further surgery, inability to complete colonoscopy requiring barium enema.
--- NOTE | 2023-05-24 08:46 | OP.COLON_ITS ---
Patient Name: Betsy Rocha Procedure Date: 05/24/2023 8:16 AM Date of : 1960 Age: 62 Procedure: Colonoscopy Indications: Screening for colorectal malignant neoplasm Providers: Radha Porter MD Referring MD: Miesha Foster MD Medicines: Monitored Anesthesia Care Patient Profile: Last Colonoscopy: 10 years ago. This is a 62 year old female. Complications: No immediate complications. Procedure: Pre-Anesthesia Assessment: - Prior to the procedure, a History and Physical was performed, and patient medications and allergies were reviewed. The patient's tolerance of previous anesthesia was also reviewed. The risks and benefits of the procedure and the sedation options and risks were discussed with the patient. All questions were answered, and informed consent was obtained. Prior Anticoagulants: The patient has taken no anticoagulant or antiplatelet agents. ASA Grade Assessment: Per anesthesia. After reviewing the risks and benefits, the patient was deemed in satisfactory condition to undergo the procedure. After I obtained informed consent, the scope was passed under direct vision. Throughout the procedure, the patient's blood pressure, pulse, and oxygen saturations were monitored continuously. The Colonoscope was introduced through the anus and advanced to the cecum, identified by the appendiceal orifice, ileocecal valve and palpation. The colonoscopy was performed without difficulty. The patient tolerated the procedure well. The quality of the bowel preparation was good. Scope In: 8:21:14 AM Scope Out: 8:40:35 AM Total Procedure Duration Time 0 hours 19 minutes 21 seconds Findings: The perianal and digital rectal examinations were normal. Three sessile polyps were found in the rectum and sigmoid colon. The polyps were less than 5 mm in size. These polyps were removed with a cold biopsy forceps. Resection and retrieval were complete. The exam was otherwise without abnormality on direct and retroflexion views. Impression: - Three less than 5 mm polyps in the rectum and in the sigmoid colon, removed with a cold biopsy forceps. Resected and retrieved. - The examination was otherwise normal on direct and retroflexion views. Recommendation: - Discharge patient to home. - Resume previous diet. - Continue present medications. - Await pathology results. - Repeat colonoscopy in 5-10 years for surveillance based on pathology results. Procedure Code(s): --- Professional --- 67213, PT, Colonoscopy, flexible; with biopsy, single or multiple Diagnosis Code(s): --- Professional --- Z12.11, Encounter for screening for malignant neoplasm of colon D12.8, Benign neoplasm of rectum D12.5, Benign neoplasm of sigmoid colon CPT copyright 2021 [employer]. All rights reserved. The codes documented in this report are preliminary and upon charge weigher review may be revised to meet current compliance requirements. MD Radha Thomas MD 05/24/2023 8:46:24 AM This report has been signed electronically. Number of Addenda: 0 Note Initiated On: 05/24/2023 8:16 AM
--- NOTE | 2023-05-24 08:47 | OP.CCLET_ITS ---
05/24/2023 Miesha Foster MD [address] [place] [address] [place] [address] Re : Colonoscopy procedure for Betsy Rocha Dear Dr. Foster This procedure was performed on Wednesday, May 24, 2023. My impressions and recommendations are as follows: Impressions : - Three less than 5 mm polyps in the rectum and in the sigmoid colon, removed with a cold biopsy forceps. Resected and retrieved. - The examination was otherwise normal on direct and retroflexion views. Recommendations : - Discharge patient to home. - Resume previous diet. - Continue present medications. - Await pathology results. - Repeat colonoscopy in 5-10 years for surveillance based on pathology results. My findings are described in the full procedure note, which is enclosed. If I can be of further assistance, please feel free to contact me at Doctor phone number(s): , Work: . Sincerely, MD Radha Thomas MD 05/24/2023 8:46:24 AM This report has been signed electronically.
== END 2023-05-24 09:45 | disposition home or self-care (01) ==
LOC: EN 07:24 → AC 07:25
PROVIDERS: PCP Internal Medicine; Referring Provider Internal Medicine; Visit Provider Surgery
PROC: 0DJD8ZZ Inspection of Lower Intestinal Tract, Via Natural or Artificial Opening Endoscopic (ICD-10-PCS; CPT 45378; principal; 2023-05-24 08:25)
DX: Z12.11 Encounter for screening for malignant neoplasm of colon (principal); N18.31 Chronic kidney disease, stage 3a; D12.5 Benign neoplasm of sigmoid colon; K62.1 Rectal polyp; I12.9 Hypertensive chronic kidney disease with stage 1 through stage 4 chronic kidney disease, or unspecified chronic kidney disease; Z79.899 Other long term (current) drug therapy
CPT/HCPCS: 45380; 88305; J7120; J2405

== ENCOUNTER 2023-06-01 03:35 | Emergency (ER) | payer OTHER, SELFPAY ==
[2023-06-01 03:36] VITALS: BP 151/122; PULSE 64; RESP 12; TEMP 36.2; O2SAT 100; BMI 26.6
--- NOTE | 2023-06-01 03:44 | CT_ITS ---
EXAM: CT Abdomen And Pelvis W/O Contrast Injection HISTORY: left flank pain TECHNIQUE: Routine protocol CT abdomen and pelvis. IV Contrast: None.. Oral contrast: None. RADIATION DOSAGE (If Supplied By Facility): CTDIvol = ( 9.65 ) mGy, DLP = ( 443.80 ) mGycm Individualized dose optimization techniques were used for this CT. COMPARISON: None. LIMITATIONS: None. FINDINGS: LOWER CHEST: Included lung bases are clear. LIVER: Grossly unremarkable. GALLBLADDER AND BILIARY TREE: Grossly unremarkable. PANCREAS: Grossly unremarkable. SPLEEN: Grossly unremarkable. ADRENAL GLANDS: Grossly unremarkable. KIDNEYS AND URETERS: There is a 2 mm calculus in the distal left ureter at the ureterovesical junction. Mild fullness of the left renal collecting system without significant hydronephrosis, and mild perinephric stranding on the left. No other calculi demonstrated. No hydronephrosis on the right. Low attenuation structures in the left kidney consistent with cysts, the largest in the lower pole is approximately 3.4 cm, no follow-up needed. PERITONEUM: No free air. No free fluid. BOWEL: Scattered diverticula in the colon. No bowel obstruction. APPENDIX: Visualized and unremarkable. No evidence of acute appendicitis. VESSELS: Abdominal aorta is normal caliber. REPRODUCTIVE ORGANS: Grossly unremarkable URINARY BLADDER: Grossly unremarkable. ABDOMINAL WALL: Unremarkable. BONES: Degenerative changes in the lumbar spine with minimal anterolisthesis at L4-5 and L5-S1. CT/Abdomen/Pelvis without Cont IMPRESSION: Small distal left ureteral calculus without significant hydronephrosis. Colonic diverticulosis without evidence of acute diverticulitis. Electronically Signed: Cee Figueroa MD at 4:49 EST ,
--- NOTE | 2023-06-01 03:45 | EDS_ITS ---
HPI History of Present Illness Chief Complaint: Flank Pain Detail of Chief Complaint: Left flank pain Informant: patient Narrative Narrative: Patient presents the emergency department complaint of left leg pain that started about an hour and a half ago. Pain came on suddenly. She describes discomfort down into her groin and vagina at times. Pain is sharp and stabbing at times and rates it a 9 out of 10. She denies vomiting. She has a sensation of needing to urinate but was only able to urinate small amount. She denies hematuria. She denies prior history of kidney stones. Patient tells me that she had back surgery earlier in the year and had a colonoscopy 1 week ago. She denies fever or recent fall or injury to her back. [facility] Medical History (Updated 06/01/23 @ 05:[address] Liam Arango DO) Alcohol use Arthritis Back pain Cataracts, bilateral Child Colon cancer screening Fractures Gastric reflux Hypertension Injury of head and neck Non-smoker Osteoporosis Persistent headaches Post-menopausal Preventative health care Proteinuria Stage 3a chronic kidney disease (CKD) Vertigo Home Medications lisinopril 5 mg tablet 1 tab PO QHS 90 days ##90 11/04/17 [History Last Taken Unknown] turmeric root extract 1,053 mg tablet 1,076 mg PO DAILY 05/04/22 [History Last Taken Unknown] acetaminophen 650 mg tablet,extended release (Tylenol Arthritis Pain) 650 mg PO Q12H 09/25/22 [History Last Taken Unknown] cyclobenzaprine 5 mg tablet 5 mg PO TID PRN muscle spasm 09/25/22 [History Last Taken Unknown] cholecalciferol (vitamin D3) 125 mcg (5,000 unit) capsule 3,000 unit PO DAILY 01/04/23 [History Last Taken Unknown] denosumab 60 mg/mL subcutaneous syringe 60 mg subcut [id number] 01/04/23 [History Last Taken Unknown] diclofenac sodium 1 % topical gel (Voltaren Arthritis Pain) 2 g topical ONCE 01/04/23 [History Last Taken Unknown] pyridoxine (vitamin B6) 100 mg tablet 100 mg PO DAILY 01/04/23 [History Last Taken Unknown] hydrocodone-acetaminophen 5-325mg 5mg-325mg 1 tab PO Q4H PRN PRN Pain 2 days #10 TABLETS 06/01/23 [Rx Last Taken Unknown] Allergy/AdvReac Type Severity Reaction Status Date / Time bee venom protein (honey bee) Allergy Intermediate internal Verified 06/01/23 03:39 itching clindamycin Allergy Mild Rash Verified 06/01/23 03:39 Sulfa (Sulfonamide Allergy Mild Rash Verified 06/01/23 03:39 Antibiotics) Family History (Updated 02/18/23 @ 14:04 by Ritu Black) Mother Lung cancer Myocardial infarction Heart disease Hypertension Cancer SKIN-BASAL CELL Sister Osteoporosis Breast cancer Other Dementia Surgical History Hx of colonoscopy Hx of decompressive lumbar laminectomy Social History Smoking Status: Never smoker alcohol intake: current alcohol intake frequency: holidays/special occasions only Alcohol type: wine substance use type: does not use what type of physical activity do you participate in: weight training frequency: 3-4 times per week seatbelt use: always do you feel safe at home: Yes ROS ROS ED Review of Systems ROS Unobtainable: other Constitutional Constitutional ED: Reports lethargy; Denies chills, fever(s), sweats or weight loss Eyes Eyes: Denies blurry vision, change in vision or diplopia ENT ENT ED: Denies rhinorrhea or sore throat Cardiovascular Cardiovascular: Denies chest pain, orthopnea or racing heartbeat Respiratory/Chest Respiratory/Chest: Denies cough, dyspnea, dyspnea on exertion, orthopnea or sputum Gastrointestinal Gastrointestinal: Denies abdominal pain, diarrhea, nausea or vomiting Genitourinary Genitourinary ED: Reports urinary frequency; Denies dysuria or hematuria Musculoskeletal Musculoskeletal: Reports back pain; Denies arthralgias, myalgias or neck pain Integumentary Denies abscess, Abrasions or rash Neurologic Neurologic: Denies headache(s) or weakness Psychiatric Psychiatric: Denies anxiety, depression or suicidal thoughts Endocrine Endocrinology: Denies polydipsia, polyphagia or polyuria Hematologic/Lymphatic Hematologic/Lymphatic: Denies easy bleeding, easy bruising or lymphadenopathy Allergic/Immunologic Allergic/Immunologic ED: Denies mouth swelling, tongue swelling or urticaria EXAM Physical Exam Const Vital Signs: 06/01/23 03:36 06/01/23 05:42 Temperature 97.2 F L Temperature Source Temporal Pulse Rate 64 61 Respiratory Rate 12 12 Blood Pressure 151/122 H 125/66 H Blood Pressure Mean 131 85 Pulse Ox 100 100 Oxygen Delivery Method Room Air Positive well nourished and well developed General Appearance ED: well developed and NAD HEENT Reports TM's clear and moist mucous membranes normocephalic and atraumatic; Negative for trauma or tenderness Tympanic Membrane ED: Yes TM's clear Eyes PERRL and EOMs intact bilaterally General Eye ED: Negative for pale conjunctiva or scleral icterus Neck no lymphadenopathy, supple and no JVD General: Negative for tenderness Chest Wall inspection of chest normal and palpation of chest normal Chest: Negative for tenderness Resp normal respiratory effort and clear to auscultation bilaterally Effort and Inspection: Negative for respiratory distress or pain with movement Auscultation: Negative for rhonchi, wheezes or diminished lung sounds Cardio regular rate, regular rhythm, S1 normal heart sound, S2 normal heart sound and no murmurs Peripheral Pulses: pulses 2+ throughout GI normal to inspection, nondistended, normoactive bowel sounds, soft to palpation, non-distended and no masses GI Narrative: Mild tenderness palpation over left lower quadrant. There is no rebound, rigidity, or apparent signs. No mass palpated. Back/Spine no thoracic nor lumbar tenderness Back/Spine Narrative: Left CVA tenderness Extremity normal to inspection General Extremety ED: Negative for edema General Extremity: Negative for edema Neuro oriented x3, CN's II-XII intact bilaterally, no sensory deficits noted and gait normal Sensorium / Orientation: awake, alert, oriented to person, oriented to place and oriented to time Motor Exam: strength 5/5 throughout and strength abnormal Psych mental status grossly normal Skin no rashes or lesions noted and no wounds MDM MDM MDM Narrative Medical decision making narrative: Patient presents with flank pain and urinary symptoms. Sudden onset of pain. Suspected likely kidney stone as the etiology. IV line established. Patient was medicated with Zofran as well as Toradol and half a milligram of Dilaudid and she had good pain relief with that. CBC with differential obtained showed white count of 5.8 with hemoglobin 14.5 and platelet count of 258. Chemistries unremarkable. BUN 28 and creatinine 1.21. Urinalysis showed microscopic blood. No signs of infection. CT flank showed a 2 mm stone at the left UVJ. While in the department patient gave urine sample and passed a small stone. Currently she is pain-free. Will send home with a prescription for a few [place] for pain should she have severe pain. She is advised to return if severe pain, vomiting, fever, or condition worsening way. Lab Data Attestation: I reviewed the patient's lab results. Labs: Laboratory Results - last 24 hr 06/01/23 06/01/23 03:45 05:00 WBC 5.8 RBC 4.92 Hgb 14.5 Hct 43.5 MCV 88.4 MCH 29.5 MCHC 33.3 RDW Std Deviation 40.7 RDW Coeff of Deb 12.6 Plt Count 258 MPV 10.5 Immature Gran % (Auto) 0.200 Neut % (Auto) 47.7 Lymph % (Auto) 37.8 Starke % (Auto) 9.7 Eos % (Auto) 4.1 Baso % (Auto) 0.5 Absolute Neuts (auto) 2.8 Absolute Lymphs (auto) 2.19 Nucleated RBC % 0 Sodium 139 Potassium 4.0 Chloride 106 Carbon Dioxide 25.0 Anion Gap 8 BUN 28 H Creatinine 1.21 H Estim Creat Clear Calc 42.27 Est GFR (MDRD) Af Amer 58 L Est GFR (MDRD) Non-Af 48 L BUN/Creatinine Ratio 23.1 H Glucose 112 H Calcium 9.3 Urine Color Yellow Urine Clarity Clear Urine pH 6.0 Ur Specific [place] 1.020 Urine Protein 30 H Urine Glucose (UA) 50 H Urine Ketones Negative Urine Occult Blood 250 H Urine Nitrite Negative Urine Bilirubin Negative Urine Urobilinogen Normal Ur Leukocyte Esterase 25 H Urine RBC 10-25 SEEN Urine WBC 0-5 SEEN Ur Squamous Epith Cells 0-5 SEEN Urine Bacteria 0 SEEN Urine Mucus 0 SEEN Radiography Diagnostic Testing: Clinical Impression(s) from Imaging Studies Abdomen/Pelvis CT 06/01/23 03:44 IMPRESSION: Small distal left ureteral calculus without significant hydronephrosis. Colonic diverticulosis without evidence of acute diverticulitis. Electronically Signed: Cee Figueroa MD at 4:49 EST , Discharge Plan Triage Chief Complaint: Flank Pain ED Provider: Liam Arango Dx/Rx/DC Orders Clinical Impression: Urolithiasis Instructions: ED Kidney Stone, Passed, ED Kidney Stone with Pain Prescriptions: New hydrocodone-acetaminophen [hydrocodone-acetaminophen] 5-325 mg tablet 1 tab PO Q4H PRN PRN (Reason: Pain) 2 Days Qty: 10 0RF No Action lisinopril 5 mg tablet 1 tab PO QHS 90 Days Qty: 90 Patient Comments: TAKE ONE TABLET BY MOUTH EVERY DAY turmeric root extract 1,053 mg tablet 1,076 mg PO DAILY acetaminophen [Tylenol Arthritis Pain] 650 mg tablet extended release 650 mg PO Q12H cyclobenzaprine 5 mg tablet 5 mg PO TID PRN (Reason: muscle spasm) cholecalciferol (vitamin D3) 125 mcg (5,000 unit) capsule 3,000 unit PO DAILY pyridoxine (vitamin B6) 100 mg tablet 100 mg PO DAILY denosumab 60 mg/mL syringe 60 mg subcut [id number] diclofenac sodium [Voltaren Arthritis Pain] 1 % gel 2 g topical ONCE Rx Instructions: apply to single elbow, wrist or hand; for hand includes palm/fingers/back of hand Primary Care Provider: Miesha Foster Referrals: Miesha Foster MD [Primary Care Provider] - Soraya Lozano MD [Med Staff - Active Staff] - As Needed Disposition Disposition: Home, Self Care Discharge Date/Time: 06/01/23 06:00
[2023-06-01 03:53] LABS: Absolute Lymphocyte Count 2.19 X10^3/uL (0.83-4.51); Absolute Neutrophil Count 2.8 X10^3/uL (2.0-7.7); Basophil# 0.03 X10^3/uL; Basophil% 0.5 % (0-1); Eosinophil# 0.24 X10^3/uL; Eosinophils% 4.1 % (0-5); Hematocrit 43.5 % (37-47); Hemoglobin 14.5 g/dL (12.0-15.0); Lymphocyte # 2.19 X10^3/ul (0.83-4.51); Lymphocyte % 37.8 % (19-41); Mean Corp Hgb Conc 33.3 g/dL (32-36); Mean Corpuscular Hgb 29.5 pg (27.0-32.0); Mean Corpuscular Volume 88.4 fL (81-99); Mean Platelet Vol. 10.5 fl (6.2-12.0); Monocyte# 0.56 X10^3/uL; Monocyte% 9.7 % (0-10); NRBC Flagged by Analyzer 0 % (0-5); Neutrophil # 2.76 X10^3/uL (2.7-7.7); Neutrophil % 47.7 % (47-70); Platelet Count 258 K/mm3 (150-450); RBC Distribution Width CV 12.6 % (11.6-14.6); RBC Distribution Width SD 40.7 fl (35.1-43.9); Red Blood Count 4.92 M/mm3 (4.2-5.4); White Blood Count 5.8 K/mm3 (4.4-11.0)
[2023-06-01] MEDS: Ondansetron 4 MG/2 ML Vial IV (04:10)
[2023-06-01] MEDS: Ketorolac 15 MG/ML Vial IV (04:12)
[2023-06-01] MEDS: HYDROmorphone 1 MG/ML Syringe 0.5 MG IV (04:13)
[2023-06-01] MEDS: 0.9% Normal Saline (1000mL) 1,000 ML 150 ML IV (04:13)
[2023-06-01 04:39] LABS: Anion Gap 8 (5-15); BUN 28 mg/dL (7-18); BUN/Creat Ratio 23.1 RATIO (10-20); Calcium,Total 9.3 mg/dL (8.5-10.1); Chloride 106 mmol/L (98-107); Creatinine, Serum 1.21 mg/dL (0.55-1.02); EST Glomerular Filtration Rate 48 mL/min (>60); Est Glom Filt Rate - Afr Amer 58 mL/min (>60); Estimated Creatinine Clearance 42.27 ml/min; Glucose 112 mg/dL (74-106); Sodium Level 139 mmol/L (136-145)
[2023-06-01 05:09] LABS: Bacteria 0 SEEN /hpf (None Seen); Mucous, Urine 0 SEEN /hpf (<or=2+)
[2023-06-01 05:10] LABS: Color, Urine Yellow (Yellow); Glucose, Dipstick 50 mg/dl (Normal); Ketone-Dipstick Negative (Negative); Leukocyte Esterase-Dipstick 25 /ul (Negative); Nitrite-Dipstick Negative (Negative); Occult Blood-Urine 250 /ul (Negative); Protein-Dipstick 30 mg/dl (Negative); Urine Bilirubin Dipstick Negative (Negative); Urine Clarity Clear (Clear); Urine Urobilinogen Normal (Normal)
[2023-06-01 05:24] LABS: Red Blood Cells-Urine 10-25 SEEN /hpf (0-5); Squamous Epithelial Cells - UA 0-5 SEEN /hpf (5-10); White Blood Cells 0-5 SEEN /hpf (0-5)
[2023-06-01 05:42] VITALS: BP 125/66; PULSE 61; RESP 12; O2SAT 100
== END 2023-06-01 06:00 | disposition home or self-care (01) ==
PROVIDERS: Emergency Provider Emergency Medicine; PCP Internal Medicine; Visit Provider Emergency Medicine
DX: N20.1 Calculus of ureter (principal); N18.31 Chronic kidney disease, stage 3a; I12.9 Hypertensive chronic kidney disease with stage 1 through stage 4 chronic kidney disease, or unspecified chronic kidney disease; Z79.899 Other long term (current) drug therapy
CPT/HCPCS: 74176; 80048; 81001; 85025; 96361; 96374; 96375; 99283; J7030; A4216; J2405

== ENCOUNTER → 2023-06-30 | Outpatient (CLI) | payer OTHER, SELFPAY ==
[2023-06-30 13:09] LABS: Vitamin D,25 Hydroxy 57.6 ng/mL
[2023-06-30 13:23] LABS: ALB/GLOB Ratio 1.2 RATIO (0.9-2.4); AST(SGOT) 18 U/L (15-37); Alanine Aminotransfer ALT/SGPT 27 U/L (13-56); Albumin, Serum 3.8 g/dL (3.2-5.0); Alkaline Phosphatase 72 U/L (45-117); Anion Gap 5 (5-15); BUN 22 mg/dL (7-18); BUN/Creat Ratio 23.8 RATIO (10-20); Calcium,Total 9.8 mg/dL (8.5-10.1); Chloride 106 mmol/L (98-107); Creatinine, Serum 0.92 mg/dL (0.55-1.02); EST Glomerular Filtration Rate 65 mL/min (>60); Est Glom Filt Rate - Afr Amer 79 mL/min (>60); Globulin 3.3 g/dL (2.2-4.2); Glucose 107 mg/dL (74-106); Potassium 4.1 mmol/L (3.5-5.1); Protein, Total 7.1 g/dL (6.4-8.2); Sodium Level 138 mmol/L (136-145)
== END | disposition home or self-care (01) ==
LOC: BIMLAB 10:31
PROVIDERS: PCP Internal Medicine; Referring Provider Internal Medicine Endocrinology, Diabetes & Metabolism; Visit Provider Internal Medicine Endocrinology, Diabetes & Metabolism
DX: M81.0 Age-related osteoporosis without current pathological fracture (principal); E55.9 Vitamin D deficiency, unspecified
CPT/HCPCS: 36415; 80053; 82306

== ENCOUNTER → 2023-07-05 | Outpatient (CLI) | payer OTHER, SELFPAY ==
[2023-07-05 09:03] LABS: Mucous, Urine 0 SEEN /hpf (<or=2+)
--- OUTSIDE RECORDS SUMMARY | 2023-07-05 09:35 | XMS RPT_ITS | CCD ---
Author Name Unknown Address [facility] [address] [place] [id number] Organization [facility] Care Team Providers Care Manager Business Information Name Role Phone EDU ENAMORADO Unavailable Unavailable RIVERA PEPPER () Unavailable Unav ailable BRYANNA VILLAFANA (LEONOR) Unavailable Unavailable BRYANNA VILLAFANA (LEONOR) Unavailable Unavailable SHASHANK GUARDADO DO Primary Care Physician Allergies Allergy Classification Reported Allergen(s) Allergy Type Date of Onset Reaction(s) Facility (1 source) clindamycin; Translations: [CLINDAMYCIN] Drug Allergy 6 [facility] Repository (1 source) Sulfonamides (Antibiotic); Translations: [SULFA (SULFONAMIDE ANTIBIOTICS)] Propensity to adverse reactions to drug (disorder) 6 [facility] Repository (1 source) SCOPOLAMINE BASE; Translations: [SCOPOLAMINE BASE] Propensity to adverse reactions to drug (disorder) 6 [facility] Repository (1 source) OTHER; Translations: [OTHER] Propensity to adverse reactions (disorder) 6 [facility] Repository Problems Problem Classification Problem Date Documented Da te Episodic/Chronic Unclassified (1 source) Encounter for screening mammogram for malignant neoplasm of breast; Translations: [Encounter for screening mammogram for malignant neoplasm of breast] Onset: 06-24-2017 Episodic Results Test Name Value Interpretation Reference Range Facil ity Encounters Encounter Date Encounter Type Care Provider Facility Start: 09-28-2022 End: 09-28-2022 Admission to same day surgery center SHASHANK GUARDADO DO [facility] Start: 08-12-2017 End: 08-12-2017 Ambulatory BRYANNA (LEONOR) BRODERICK [facility] Start: 06-24-2017 End: 06-24-2017 Ambulatory BRYANNA GALVEZ VILLAFANA [facility] Start: 04-24-2017 End: 04-27-2017 Ambulatory RIVERA PEPPER [facility] Start: 02-19-2017 End: 02-19-2017 Ambulatory EDU Maximilian ALFAROENAMORADO [facility] Evaluation + Plan note Note Date & Type Note Facility Evaluation + Plan note No data available for this section [facility] Discharge instructions Note Date & Type Note Facility Hospital Discharge instructions No data available for this section [facility] Progress note Note Date & Type Note Facility Progress note No data available for this section [facility] Summary Purpose Family History No Family History Records Found Advance Directives No Advanced Directives Records Found Additional Source Comments INFORMATION SOURCE (unrecogn ized section and content) Patient Care team informatio n (unrecognized section and content) Care Team Personnel Name: SHASHANK GUARDADO DO Member Role: Primary Care Physician Address: Address: [address] [place] [address] [address] FOR RECORDS PERTAINING TO PATIENTS WHO ARE OR HAVE BEEN ENROLLED IN A CHEMICAL DEPENDENCY/SUBSTANCEABUSE PROGRAM, SOME INFORMATION MAY BE OMITTED. This clinical summary was aggregated from multiple sources. Caution should be exercised in using it in the provision of clinical care. This summary normalizes information from multiple sources, and as a consequence, information in this document may materially change the coding, format and clinical context of patient data. In addition, data may be omitted in some cases. CLINICAL DECISIONS SHOULD BE BASED ON THE PRIMARY CLINICAL RECORDS. [facility] [employer] provides no warranty or guarantee of the accuracy or completeness of information in this document.
[2023-07-05 12:41] LABS: Color, Urine Straw (Yellow); Glucose, Dipstick Normal (Normal); Ketone-Dipstick Negative (Negative); Leukocyte Esterase-Dipstick 100 /ul (Negative); Nitrite-Dipstick Negative (Negative); Occult Blood-Urine 10 /ul (Negative); Protein-Dipstick Negative (Negative); Specific Gravity, Urine 1.015 (1.002-1.030); Urine Bilirubin Dipstick Negative (Negative); Urine Clarity Clear (Clear); Urine Urobilinogen Normal (Normal)
[2023-07-05 12:47] LABS: Bacteria RARE /hpf (None Seen); Red Blood Cells-Urine 0-5 SEEN /hpf (0-5); Squamous Epithelial Cells - UA 0-5 SEEN /hpf (5-10); White Blood Cells 10-25 SEEN /hpf (0-5)
[2023-07-05 13:06] LABS: Vitamin B12 385 pg/mL (211-911)
== END | disposition home or self-care (01) ==
LOC: BIMLAB 09:01
PROVIDERS: PCP Internal Medicine; Referring Provider Internal Medicine; Visit Provider Internal Medicine
DX: N20.0 Calculus of kidney (principal)
CPT/HCPCS: 36415; 81001; 82607

== ENCOUNTER 2023-07-22 14:23 | Outpatient (CLI) | payer OTHER, SELFPAY ==
[2023-07-22 14:31] VITALS: BP 138/79; PULSE 73; RESP 16; TEMP 36.4; O2SAT 99; BMI 25.0
[2023-07-22] MEDS: 0.9% NaCl Peripheral Flush Adult/Peds IV (15:01)
[2023-07-22] MEDS: Zoledronic Acid 5 MG 100 ML 300 MG IV (15:01)
[2023-07-22 15:25] VITALS: BP 139/82; PULSE 67; RESP 16
== END 2023-07-22 14:24 | disposition home or self-care (01) ==
LOC: MEDOUTP 14:24
PROVIDERS: PCP Internal Medicine; Referring Provider Nurse Practitioner Family; Visit Provider Nurse Practitioner Family
DX: M81.0 Age-related osteoporosis without current pathological fracture (principal)
CPT/HCPCS: 96365; A4216; J3489

== ENCOUNTER → 2024-01-10 | Outpatient (CLI) | payer MEDICARE, OTHER, SELFPAY ==
--- NOTE | 2024-01-10 15:58 | BI_ITS ---
MAMMOGRAPHY - BILATERAL SCREENING REASON FOR EXAM: Female, 63 years old. Routine annual screening examination. PERTINENT HISTORY: Sister with breast cancer. TECHNIQUE: Digital bilateral breast mark (3D mammographic acquisition) in the CC and MLO projections. 2-D mediolateral oblique (MLO) and craniocaudad (CC) views of both breasts were obtained. CAD: Full Field Digital Mammography with Computer Added Detection was performed. COMPARISON: Comparison is made with prior study dated January 08, 2023 and September 26, 2021. FINDINGS: Breast Composition: The breasts are heterogeneously dense, which may obscure small masses. There are no dominant masses or suspicious calcifications. A tissue clip marker is once again seen in the lateral retroareolar region of the right breast. A 5.5 mm nodule is seen adjacent to it. Stable small benign appearing bilateral axillary lymph nodes. No other significant abnormalities are identified. There has been no significant change since the prior study. BI/SCRN MAMM (CAD)W/MARK BILAT IMPRESSION: Stable bilateral screening mammogram. Yearly follow-up mammogram recommended. (A) ASSESSMENT CATEGORY: BIRADS Category 2: Benign. A letter regarding these results will be sent to the patient by the facility within 30 days. Approximately 10% of breast cancers are not detected by mammography. A normal mammogram should not delay biopsy of a clinically suspicious abnormality. [id number] Electronically Signed: Amando Goodman MD at 7:52 EDT ,
== END | disposition home or self-care (01) ==
LOC: OPBI 15:57
PROVIDERS: PCP Internal Medicine; Referring Provider Nurse Practitioner Family; Visit Provider Nurse Practitioner Family
DX: Z12.31 Encounter for screening mammogram for malignant neoplasm of breast (principal)
CPT/HCPCS: 77063; 77067

== ENCOUNTER 2024-01-17 09:09 | Outpatient (CLI) | payer MEDICARE, OTHER, SELFPAY ==
[2024-01-17 12:16] LABS: Absolute Lymphocyte Count 1.17 X10^3/uL (0.83-4.51); Absolute Neutrophil Count 2.6 X10^3/uL (2.0-7.7); Basophil# 0.02 X10^3/uL; Basophil% 0.5 % (0-1); Eosinophil# 0.24 X10^3/uL; Eosinophils% 5.5 % (0-5); Hematocrit 39.4 % (37-47); Hemoglobin 12.9 g/dL (12.0-15.0); Lymphocyte # 1.17 X10^3/ul (0.83-4.51); Lymphocyte % 26.8 % (19-41); Mean Corp Hgb Conc 32.7 g/dL (32-36); Mean Corpuscular Hgb 29.1 pg (27.0-32.0); Mean Corpuscular Volume 88.9 fL (81-99); Mean Platelet Vol. 10.9 fl (6.2-12.0); Monocyte# 0.31 X10^3/uL; Monocyte% 7.1 % (0-10); NRBC Flagged by Analyzer 0 % (0-5); Neutrophil % 59.6 % (47-70); Platelet Count 225 K/mm3 (150-450); RBC Distribution Width CV 13.1 % (11.6-14.6); RBC Distribution Width SD 42.5 fl (35.1-43.9); Red Blood Count 4.43 M/mm3 (4.2-5.4); White Blood Count 4.4 K/mm3 (4.4-11.0)
[2024-01-17 12:39] LABS: ALB/GLOB Ratio 1.1 RATIO (0.9-2.4); AST(SGOT) 19 U/L (15-37); Alanine Aminotransfer ALT/SGPT 27 U/L (13-56); Albumin, Serum 3.6 g/dL (3.2-5.0); Alkaline Phosphatase 59 U/L (45-117); Anion Gap 3 (5-15); BUN 20 mg/dL (7-18); BUN/Creat Ratio 26.1 RATIO (10-20); Calcium,Total 9.3 mg/dL (8.5-10.1); Chloride 111 mmol/L (98-107); Creatinine, Serum 0.77 mg/dL (0.55-1.02); EST Glomerular Filtration Rate 80 mL/min (>60); Est Glom Filt Rate - Afr Amer 97 mL/min (>60); Ferritin 90 ng/mL (8-252); Globulin 3.3 g/dL (2.2-4.2); Glucose 83 mg/dL (74-106); Iron 98 ug/dL (50-170); Iron Binding Capacity,Total 276 ug/dL (250-450); Magnesium 2.2 mg/dL (1.6-2.6); Protein, Total 6.9 g/dL (6.4-8.2); Sodium Level 140 mmol/L (136-145)
== END 2024-01-17 23:59 | disposition home or self-care (01) ==
LOC: BIMLAB 09:10
PROVIDERS: PCP Internal Medicine; Referring Provider Internal Medicine; Visit Provider Internal Medicine
DX: Z13.0 Encounter for screening for diseases of the blood and blood-forming organs and certain disorders involving the immune mechanism (principal); I10 Essential (primary) hypertension
CPT/HCPCS: 36415; 80053; 82728; 83540; 83550; 83735; 85025

== ENCOUNTER → 2024-04-27 | Outpatient (CLI) | payer MEDICARE, OTHER, SELFPAY ==
[2024-04-27 11:56] LABS: Hemoglobin 13.6 g/dL (12.0-15.0); Mean Corp Hgb Conc 33.2 g/dL (32-36); Mean Corpuscular Volume 90.3 fL (81-99); Mean Platelet Vol. 10.9 fl (6.2-12.0); Platelet Count 270 K/mm3 (150-450); RBC Distribution Width CV 12.9 % (11.6-14.6); RBC Distribution Width SD 42.7 fl (35.1-43.9); Red Blood Count 4.54 M/mm3 (4.2-5.4); White Blood Count 5.4 K/mm3 (4.4-11.0)
[2024-04-27 12:22] LABS: Albumin, Serum 3.8 g/dL (3.2-5.0); BUN 22 mg/dL (7-18); Calcium,Total 9.6 mg/dL (8.5-10.1); Chloride 106 mmol/L (98-107); Creatinine, Serum 0.82 mg/dL (0.55-1.02); EST Glomerular Filtration Rate 75 mL/min (>60); Est Glom Filt Rate - Afr Amer 91 mL/min (>60); Glucose 81 mg/dL (74-106); Magnesium 2.3 mg/dL (1.6-2.6); Potassium 4.2 mmol/L (3.5-5.1); Sodium Level 138 mmol/L (136-145)
[2024-04-27 12:29] LABS: Vitamin D,25 Hydroxy 42.5 ng/mL
[2024-04-27 12:31] LABS: Microalbumin:Creatinine Ratio 7.3 mg/g CRE (<30 mg/g CRE); Protein:Creat Ratio 73 mg/g CRE (0-200)
== END | disposition home or self-care (01) ==
LOC: BIMLAB 09:48
PROVIDERS: PCP Internal Medicine; Referring Provider Internal Medicine Nephrology; Visit Provider Internal Medicine Nephrology
DX: E55.9 Vitamin D deficiency, unspecified (principal); N18.31 Chronic kidney disease, stage 3a; R80.9 Proteinuria, unspecified
CPT/HCPCS: 36415; 80069; 82043; 82306; 82570; 83735; 83970; 84156; 85027

== ENCOUNTER 2024-07-24 08:58 | Outpatient (CLI) | payer MEDICARE, OTHER, SELFPAY ==
[2024-07-24 09:07] VITALS: BP 135/60; PULSE 75; RESP 16; O2SAT 100; BMI 26.2
[2024-07-24] MEDS: 0.9% Normal Saline (100mL Bag) 100 ML 15 ML IV (09:22)
[2024-07-24] MEDS: Zoledronic Acid 5 MG 100 ML 300 MG IV (09:22)
[2024-07-24 09:55] VITALS: BP 118/57; PULSE 58; RESP 14; O2SAT 99
== END 2024-07-24 23:59 | disposition home or self-care (01) ==
LOC: MEDOUTP 08:59
PROVIDERS: PCP Internal Medicine; Referring Provider Internal Medicine Endocrinology, Diabetes & Metabolism; Visit Provider Internal Medicine Endocrinology, Diabetes & Metabolism
DX: M81.0 Age-related osteoporosis without current pathological fracture (principal)
CPT/HCPCS: 96365; A4216; J3489

== ENCOUNTER → 2024-10-16 | Outpatient (CLI) | payer MEDICARE, OTHER, SELFPAY ==
[2024-10-16 15:08] LABS: Anion Gap 10 (5-15); BUN 19 mg/dL (4-19); BUN/Creat Ratio 24.6 RATIO (10-20); Calcium,Total 9.9 mg/dL (7.6-11.0); Carbon Dioxide 24.1 mmol/L (21.0-32.0); Chloride 106 mmol/L (98-108); Cholesterol 219 mg/dL (<=200); Creatinine, Serum 0.78 mg/dL (0.70-1.20); EST Glomerular Filtration Rate 84 (>60); Glucose 95 mg/dL (70-99); High Density Lipoprotein 67 mg/dL; Low Density Lipoprotein Calc. 135 mg/dL; Potassium 4.3 mmol/L (3.3-5.1); Sodium Level 141 mmol/L (133-145); Triglycerides 84 mg/dL; Very Low Density Lipoprotein 17 mg/dL (5-40); cholesterol:hdl ratio screen 3.27
== END | disposition home or self-care (01) ==
PROVIDERS: PCP Internal Medicine; Visit Provider Internal Medicine
DX: I10 Essential (primary) hypertension (principal)
CPT/HCPCS: 36415; 80048; 80061

== ENCOUNTER → 2025-01-15 | Outpatient (CLI) | payer MEDICARE, OTHER, SELFPAY ==
--- NOTE | 2025-01-15 08:15 | BI_ITS ---
EXAM: SCRN MAMM (CAD)W/MARK BILAT DATE: 01/15/2025 CLINICAL HISTORY: F, Age 64 y/o , BREAST CANCER SCREENING Sister with breast cancer. TECHNIQUE: SCRN MAMM (CAD)W/MARK BILAT COMPARISON: Prior exam(s) dated January 10, 2024.. FINDINGS: TISSUE DENSITY: The breasts are heterogeneously dense, which may obscure small masses. Bilateral Breast Mammographic Findings: No significant masses, calcifications or other abnormalities are identified. A tissue clip marker is once again seen in the lateral retroareolar region of the right breast. Stable 5 mm well-defined nodule is seen adjacent to it. No suspicious masses, areas of developing architectural distortion, or suspicious calcifications. There has been no significant interval change. BI/SCRN MAMM (CAD)W/MARK BILAT IMPRESSION: Stable examination. OVERALL FINAL ASSESSMENT BI-RADS 2: BENIGN RECOMMENDATION: Routine annual follow-up in 1 Year A letter with findings and recommendations will be mailed to the patient. Reading Location: [facility]
--- OUTSIDE RECORDS SUMMARY | 2025-01-15 09:35 | XMS RPT_ITS | CCD ---
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 today for follow up. September 2020 Lumbar Spine (L1-L4):??? g/cm2 (1.048)??? /??? T-score (-1.0)??? /??? Z-score (0.3) Findings are suggestive of normal bone density with a low fracture risk. Left Femur Total:??? g/cm2 (0.676)??? /??? T-score (-2.6)??? /??? Z-score (-1.6) Left Femoral Neck:??? g/cm2 (0.745)??? /??? T-score (-2.1)??? /??? Z-score (-0.8) Right Femur Total:??? g/cm2 (0.668)??? /??? T-score (-2.7)??? /??? Z-score (-1.7) Right Femoral Neck:??? g/cm2 (0.759)??? /??? T-score (-2.0)??? /??? Z-score (-0.7) She has received 3 infusion of Zolendronate. She tolerated it well. No falls or fractures this past year. Her renal function has seemingly improved. She is avoiding NSAIDS. ROS Const Constitutional: No body ache, chills, excessive sweating, fatigue, fever(s), frequent falls, headache(s), snoring, weakness or change in appetite Eyes Eyes: No blurry vision, change in vision, eye pain or Light sensitivity ENT ENT: No abnormal hearing, ear or mastoid pain, tinnitus, nasal congestion, headache(s), neck pain or sore throat Cardio Cardiology: No chest pain at rest, chest pain with exertion, excessive sweating, dyspnea on (more content not included)... Normal [facility] CBC-Complete Blood Cnt No Di ffon 04-27-2024 Erythrocyte distribution width (RBC) [Ratio] 12.9 % Normal 11.6-14.6 [facility] Comment on above: Performed By: #### L 509.1000, L500.3600, L501.5200, L506.1000, L501.0900, L502.0250, L100.0500 ####[facility] [address] [place], [address] Hematocrit (Bld) [Volume fraction] 41.0 % Normal 37-47 [facility] Comment on above: Performed By: #### L 509.1000, L500.3600, L501.5200, L506.1000, L501.0900, L502.0250, L100.0500 ####[facility] [address] [place], [address] Hemoglobin (Bld) [Mass/Vol] 13.6 g/dL Normal 12.0-15.0 [facility] Comment on above: Performed By: #### L 509.1000, L500.3600, L501.5200, L506.1000, L501.0900, L502.0250, L100.0500 ####[facility] [address] [place], [address] MCH (RBC) [Entitic mass] 30.0 pg Normal 27.0-32.0 [facility] Comment on above: Performed By: #### L 509.1000, L500.3600, L501.5200, L506.1000, L501.0900, L502.0250, L100.0500 ####[facility] [address] [place], [address] MCHC (RBC) [Mass/Vol] 33.2 g/dL Normal 32-36 [facility] Comment on above: Performed By: #### L 509.1000, L500.3600, L501.5200, L506.1000, L501.0900, L502.0250, L100.0500 ####[facility] [address] [place], [address] MCV (RBC) [Entitic vol] 90.3 fL Normal 81-99 [facility] Comment on above: Performed By: #### L 509.1000, L500.3600, L501.5200, L506.1000, L501.0900, L502.0250, L100.0500 ####[facility] [address] [place], [address] Platelet mean volume (Bld) [Entitic vol] 10.9 fL Normal 6.2-12.0 [facility] Comment on above: Performed By: #### L 509.1000, L500.3600, L501.5200, L506.1000, L501.0900, L502.0250, L100.0500 ####[facility] [address] [place], [address] Platelets (Bld) [#/Vol] 270 10*3/uL Normal 150-450 [facility] Comment on above: Performed By: #### L 509.1000, L500.3600, L501.5200, L506.1000, L501.0900, L502.0250, L100.0500 ####[facility] [address] [place], [address] RBC (Bld) [#/Vol] 4.54 10*6/uL Normal 4.2-5.4 [facility] Comment on above: Performed By: #### L 509.1000, L500.3600, L501.5200, L506.1000, L501.0900, L502.0250, L100.0500 ####[facility] [address] [place], [address] RDW SD 42.7 fl Normal 35.1-43.9 [facility] Comment on above: Performed By: #### L 509.1000, L500.3600, L501.5200, L506.1000, L501.0900, L502.0250, L100.0500 ####[facility] [address] [place], [address] WBC (Bld) [#/Vol] 5.4 10*3/uL Normal 4.4-11.0 [facility] Comment on above: Performed By: #### L 509.1000, L500.3600, L501.5200, L506.1000, L501.0900, L502.0250, L100.0500 ####[facility] [address] [place], [address] Magnesiumon 04-27-2024 Magnesium [Mass/Vol] 2.3 mg/dL Normal 1.6-2.6 [facility] Comment on above: Performed By: #### L 509.1000, L500.3600, L501.5200, L506.1000, L501.0900, L502.0250, L100.0500 ####[facility] [address] [place], [place], [id number] Microalb:Creat Ratio,Random URon 04-27-2024 MALB:CRE 7.3 mg/g CRE Normal <30 mg/g CRE [facility] Comment on above: Performed By: #### L 509.1000, L500.3600, L501.5200, L506.1000, L501.0900, L502.0250, L100.0500 ####[facility] [address] [place], [address] MICROALBUMIN,UR 8.0 mg/L Normal NO RANGE EST. [facility] Comment on above: Performed By: #### L 509.1000, L500.3600, L501.5200, L506.1000, L501.0900, L502.0250, L100.0500 ####[facility] [address] [place], [address] PTHINon 04-27-2024 PTH 59.0 pg/mL Normal 18.4-80.1 [facility] Comment on above: Performed By: #### L 509.1000, L500.3600, L501.5200, L506.1000, L501.0900, L502.0250, L100.0500 ####[facility] [address] [place], [address] Protein+Creatinine Ratio,Uri neon 04-27-2024 PROT:CRE RATIO 73 mg/g CRE Normal 0-200 [facility] Comment on above: Performed By: #### L 509.1000, L500.3600, L501.5200, L506.1000, L501.0900, L502.0250, L100.0500 ####[facility] [address] [place], [address] Protein (U) [Mass/Vol] 8.0 mg/dL Normal <11.9 [facility] Comment on above: Performed By: #### L 509.1000, L500.3600, L501.5200, L506.1000, L501.0900, L502.0250, L100.0500 ####[facility] [address] [place], [address] UR CREAT 109.00 mg/dL Normal NO RANGE EST. [facility] Comment on above: Performed By: #### L 509.1000, L500.3600, L501.5200, L506.1000, L501.0900, L502.0250, L100.0500 ####[facility] [address] [place], [address] Renal Profileon 04-27-2024 Albumin [Mass/Vol] 3.8 g/dL Normal 3.2-5.0 [facility] Comment on above: Performed By: #### L 509.1000, L500.3600, L501.5200, L506.1000, L501.0900, L502.0250, L100.0500 ####[facility] [address] [place], [address] BUN/CRE 27.0 RATIO High 10-20 [facility] Comment on above: Performed By: #### L 509.1000, L500.3600, L501.5200, L506.1000, L501.0900, L502.0250, L100.0500 ####[facility] [address] [place], [address] CA,Total 9.6 mg/dL Normal 8.5-10.1 [facility] Comment on above: Performed By: #### L 509.1000, L500.3600, L501.5200, L506.1000, L501.0900, L502.0250, L100.0500 ####[facility] [address] [place], [address] Chloride [Moles/Vol] 106 mmol/L Normal 98-107 [facility] Comment on above: Performed By: #### L 509.1000, L500.3600, L501.5200, L506.1000, L501.0900, L502.0250, L100.0500 ####[facility] [address] [place], [address] CO2 [Moles/Vol] 28.0 mmol/L Normal 21.0-32.0 [facility] Comment on above: Performed By: #### L 509.1000, L500.3600, L501.5200, L506.1000, L501.0900, L502.0250, L100.0500 ####[facility] [address] [place], [address] Creatinine [Mass/Vol] 0.82 mg/dL Normal 0.55-1.02 [facility] Comment on above: Result Comment: The validity of the calculated GFR GFRAA in patients over 70 years has not been determined. Clinical correlation is essential. Performed By: #### L 509.1000, L500.3600, L501.5200, L506.1000, L501.0900, L502.0250, L100.0500 ####[facility] [address] [place], [address] EST GFR - AA 91 mL/min Normal >60 [facility] Comment on above: Result Comment: Afri can Croatian GFR Calc Performed By: #### L 509.1000, L500.3600, L501.5200, L506.1000, L501.0900, L502.0250, L100.0500 ####[facility] [address] [place], [address] GFR/1.73 sq M.predicted among non-blacks MDRD (S/P/Bld) [Vol rate/Area] 75 mL/min/{1.73_m2} Normal >60 [facility] Comment on above: Result Comment: Non- GFR Calc Performed By: #### L 509.1000, L500.3600, L501.5200, L506.1000, L501.0900, L502.0250, L100.0500 ####[facility] [address] [place], [address] Glucose [Mass/Vol] 81 mg/dL Normal 74-106 [facility] Comment on above: Performed By: #### L 509.1000, L500.3600, L501.5200, L506.1000, L501.0900, L502.0250, L100.0500 ####[facility] [address] [place], [address] Phosphate [Mass/Vol] 3.0 mg/dL Normal 2.5-4.9 [facility] Comment on above: Performed By: #### L 509.1000, L500.3600, L501.5200, L506.1000, L501.0900, L502.0250, L100.0500 ####[facility] [address] [place], [address] Potassium [Moles/Vol] 4.2 mmol/L Normal 3.5-5.1 [facility] Comment on above: Performed By: #### L 509.1000, L500.3600, L501.5200, L506.1000, L501.0900, L502.0250, L100.0500 ####[facility] [address] [place], [address] Sodium [Moles/Vol] 138 mmol/L Normal 136-145 [facility] Comment on above: Performed By: #### L 509.1000, L500.3600, L501.5200, L506.1000, L501.0900, L502.0250, L100.0500 ####[facility] [address] [place], [address] Urea nitrogen [Mass/Vol] 22 mg/dL High 7-18 [facility] Comment on above: Performed By: #### L 509.1000, L500.3600, L501.5200, L506.1000, L501.0900, L502.0250, L100.0500 ####[facility] [address] [place], [address] Vitamin D,25 Hydroxyon 04-27 Vitamin D 25-OH 42.5 ng/mL Normal [facility] Comment on above: Result Comment: Renae min D 25(OH) Status Range Deficiency <20 ng/mL (50nmol/L) Insufficiency 20 - 30 ng/mL (50 - 75 nmol/L) Sufficiency 30 - 100 ng/mL (75 - 250 nmol/L) Toxicity >100 ng/mL (>250 nmol/L) Performed By: #### L 509.1000, L500.3600, L501.5200, L506.1000, L501.0900, L502.0250, L100.0500 ####[facility] [address] [place], [address] Internal Medicine Office Vis iton 04-17-2024 Internal Medicine Office Visit [facility] [address] [place] [address] OFFICE VISIT Date of Service: 04/17/24 MR#: [id number] Acct: [id number] Name: BETSY ROCHA Rep #: [id number] : 1960 Provider: Dr. Miesha gant MD Age/Sex: 63/F Location: [facility] Status: Signed Intake Vital Signs 01/17/24 08:41 04/17/24 08:37 Height 5 ft 5 in 5 ft 5 in Weight: 161 lb 162 lb BMI 26.8 26.9 BP 122/74 H 114/68 Blood Pressure Location Lt brachial Lt brachial Position Sitting Sitting Respiration 16 17 Pulse 66 73 Pulse Source Monitor Monitor Temp 97.8 F 97.4 F L Temp Source Temporal Temporal Pulse Oximetry (%) 98 97 Oxygen Delivery Method room air room air Intake Visit Reasons: 3 M FU Chief Complaint: 3 M Fu Is patient in pain?: No Allergies bee venom protein (honey bee) Allergy (Intermediate, Verified 04/17/24 08:35) internal itching clindamycin Allergy (Mild, Verified 04/17/24 08:35) Rash Sulfa (Sulfonamide Antibiotics) Allergy (Mild, Verified 04/17/24 08:35) Rash scopolamine Adverse Reaction (Verified 04/17/24 08:35) blurry vision Medications ???Medication ???Instructions ???Recorded ???Confirmed ???Type lisinopril 5 mg tablet 1 tab PO QHS 90 days ##90 11/04/17 04/17/24 History turmeric root extract 1,053 mg 1,076 mg PO DAILY 05/04/22 04/17/24 History tablet cyclobenzaprine 5 mg tablet 5 mg PO TID PRN muscle spasm 09/25/22 04/17/24 History cholecalciferol (vitamin D3) 125 3,000 unit PO DAILY 01/04/23 04/17/24 History mcg (5,000 unit) capsule pyridoxine (vitamin B6) 100 mg 100 mg PO DAILY 01/04/23 04/17/24 History tablet zoledronic acid 5 mg/100 mL in See Rx Instructions .Route 06/30/23 04/17/24 Rx mannitol 5 %-water intravenous .COMPLEX #100 mL piggybck mecobalamin (vitamin B12) 1,000 1,000 mcg PO DAILY 07/22/23 04/17/24 History mcg chewable tablet acetaminophen 650 mg 650 mg PO Q12H PRN 04/17/24 04/17/24 History tablet,extended release (Tylenol Arthritis Pain) diclofenac sodium 1 % topical gel 2 g topical ONCE PRN 04/17/24 04/17/24 History (Voltaren Arthritis Pain) magnesium oxide 200 mg PO QDAY 04/17/24 04/17/24 History Have you fallen in the past year?: No PFSH Medical History (Updated 04/17/24 @ 12:[address] Miesha Foster MD) Flu vaccine need Restless leg syndrome Right leg pain Screening for iron deficiency anemia Falls Renal stone Neuropathy Post-menopausal Alcohol use Back pain Injury of head and neck Gastric reflux Non-smoker Proteinuria Preventative health care Colon cancer screening Vertigo Persistent headaches Fractures Cataracts, bilateral Stage 3a chronic kidney disease (CKD) Osteoporosis Child Arthritis Hypertension Surgical History Hx of decompressive lumbar laminectomy Hx of colonoscopy Family History Mother Lung cancer Myocardial infarction Heart disease Hypertension Cancer SKIN-BASAL CELL Sister Osteoporosis Breast cancer Other Dementia Social History Smoking Status: Never smoker alcohol intake: current alcohol intake frequency: holidays/special occasions only Alcohol type: wine substance use type: does not use what type of physical activity do you participate in: weight training frequency: 3-4 times per week seatbelt use: always do you feel safe at home: Yes HPI HPI Chief Complaint: 3 M Fu Details: BETSY ROCHA, is a 63 F who presents to the office today for follow-up. Also has some concerns. History of recurrent vertigo status post injury a few years ago. Had a massage with positioning of her head to the right which precipitated this again. Said to be mild. Has not tried anything at home. There was concern for restless leg syndrome on her last visit. Supportive measures were recommended including oral magnesium. She states that she has been taking these that her symptoms have improved. No new concerns reported in that regard. History of hypertension, blood pressure today at 114/68 mmHg. Currently on lisinopril which she is taking as prescribed. No chest pain, palpitation or shortness of breath. Other chronic medical conditions are stable. ROS Const Constitutional: No body ache, chills, excessive sweating, fatigue, fever(s), frequent falls, headache(s), snoring, weight change, sleep problems, abnormal sleep pattern or change in appetite Eyes Eyes: No blurry vision, change in vision, eye pain or Light sensitivity ENT ENT: Positive for dizziness/vertigo; No abnormal hearing, ear or mastoid pain, tinnitus, nasal congestion, headache(s), neck pain or sore throat Resp Respiratory: No cough, shortness of (more content not included)... Normal [facility] CBC W/Diff, Automatedon 12-20 Absolute Lymph 1.17 X10 3/uL Normal 0.83-4.51 [facility] Comment on above: Performed By: #### L 100.0100, L500.4050, L501.5200, L503.6075, L503.6150, L503.6550 #### [facility] [address] [place], [address] Absolute Neut 2.6 X10 3/uL Normal 2.0-7.7 [facility] Comment on above: Performed By: #### L 100.0100, L500.4050, L501.5200, L503.6075, L503.6150, L503.6550 #### [facility] [address] [place], [address] Basophils/100 WBC (Bld) 0.5 % Normal 0-1 [facility] Comment on above: Performed By: #### L 100.0100, L500.4050, L501.5200, L503.6075, L503.6150, L503.6550 #### [facility] [address] [place], [address] Eosinophils/100 WBC (Bld) 5.5 % High 0-5 [facility] Comment on above: Performed By: #### L 100.0100, L500.4050, L501.5200, L503.6075, L503.6150, L503.6550 #### [facility] [address] [place], [address] Erythrocyte distribution width (RBC) [Ratio] 13.1 % Normal 11.6-14.6 [facility] Comment on above: Performed By: #### L 100.0100, L500.4050, L501.5200, L503.6075, L503.6150, L503.6550 #### [facility] [address] [place], [address] Hematocrit (Bld) [Volume fraction] 39.4 % Normal 37-47 [facility] Comment on above: Performed By: #### L 100.0100, L500.4050, L501.5200, L503.6075, L503.6150, L503.6550 #### [facility] [address] [place], [address] Hemoglobin (Bld) [Mass/Vol] 12.9 g/dL Normal 12.0-15.0 [facility] Comment on above: Performed By: #### L 100.0100, L500.4050, L501.5200, L503.6075, L503.6150, L503.6550 #### [facility] [address] [place], [address] IG% 0.500 Normal 0.0-0.9 [facility] Comment on above: Result Comment: IG% - Immature Granulocytes (promyelocytes, myelocytes and metamyelocytes) > 1% indicates that a LEFT SHIFT is Present. Performed By: #### L 100.0100, L500.4050, L501.5200, L503.6075, L503.6150, L503.6550 #### [facility] [address] [place], [address] Lymphocytes/100 WBC (Bld) 26.8 % Normal 19-41 [facility] Comment on above: Performed By: #### L 100.0100, L500.4050, L501.5200, L503.6075, L503.6150, L503.6550 #### [facility] [address] [place], [address] MCH (RBC) [Entitic mass] 29.1 pg Normal 27.0-32.0 [facility] Comment on above: Performed By: #### L 100.0100, L500.4050, L501.5200, L503.6075, L503.6150, L503.6550 #### [facility] [address] [place], [address] MCHC (RBC) [Mass/Vol] 32.7 g/dL Normal 32-36 [facility] Comment on above: Performed By: #### L 100.0100, L500.4050, L501.5200, L503.6075, L503.6150, L503.6550 #### [facility] [address] [place], [address] MCV (RBC) [Entitic vol] 88.9 fL Normal 81-99 [facility] Comment on above: Performed By: #### L 100.0100, L500.4050, L501.5200, L503.6075, L503.6150, L503.6550 #### [facility] [address] [place], [address] Monocytes/100 WBC (Bld) 7.1 % Normal 0-10 [facility] Comment on above: Performed By: #### L 100.0100, L500.4050, L501.5200, L503.6075, L503.6150, L503.6550 #### [facility] [address] [place], [address] Neutrophils/100 WBC (Bld) 59.6 % Normal 47-70 [facility] Comment on above: Performed By: #### L 100.0100, L500.4050, L501.5200, L503.6075, L503.6150, L503.6550 #### [facility] [address] [place], [address] Nucleated RBC (Bld) [#/Vol] 0 10*3/uL Normal 0-5 [facility] Comment on above: Performed By: #### L 100.0100, L500.4050, L501.5200, L503.6075, L503.6150, L503.6550 #### [facility] [address] [place], [address] Platelet mean volume (Bld) [Entitic vol] 10.9 fL Normal 6.2-12.0 [facility] Comment on above: Performed By: #### L 100.0100, L500.4050, L501.5200, L503.6075, L503.6150, L503.6550 #### [facility] [address] [place], [address] Platelets (Bld) [#/Vol] 225 10*3/uL Normal 150-450 [facility] Comment on above: Performed By: #### L 100.0100, L500.4050, L501.5200, L503.6075, L503.6150, L503.6550 #### [facility] [address] [place], [address] RBC (Bld) [#/Vol] 4.43 10*6/uL Normal 4.2-5.4 [facility] Comment on above: Performed By: #### L 100.0100, L500.4050, L501.5200, L503.6075, L503.6150, L503.6550 #### [facility] [address] [place], [address] RDW SD 42.5 fl Normal 35.1-43.9 [facility] Comment on above: Performed By: #### L 100.0100, L500.4050, L501.5200, L503.6075, L503.6150, L503.6550 #### [facility] [address] [place], [address] WBC (Bld) [#/Vol] 4.4 10*3/uL Normal 4.4-11.0 [facility] Comment on above: Performed By: #### L 100.0100, L500.4050, L501.5200, L503.6075, L503.6150, L503.6550 #### [facility] [address] [place], [address] Comprehensive Metabolic [facility] 01-17-2024 Albumin [Mass/Vol] 3.6 g/dL Normal 3.2-5.0 [facility] Comment on above: Performed By: #### L 100.0100, L500.4050, L501.5200, L503.6075, L503.6150, L503.6550 #### [facility] [address] [place], [address] Albumin/Globulin [Mass ratio] 1.1 {ratio} Normal 0.9-2.4 [facility] Comment on above: Performed By: #### L 100.0100, L500.4050, L501.5200, L503.6075, L503.6150, L503.6550 #### [facility] [address] [place], [address] ALK P 59 U/L Normal 45-117 [facility] Comment on above: Performed By: #### L 100.0100, L500.4050, L501.5200, L503.6075, L503.6150, L503.6550 #### [facility] [address] [place], [address] ALT [Catalytic activity/Vol] 27 U/L Normal 13-56 [facility] Comment on above: Performed By: #### L 100.0100, L500.4050, L501.5200, L503.6075, L503.6150, L503.6550 #### [facility] [address] [place], [address] AST [Catalytic activity/Vol] 19 U/L Normal 15-37 [facility] Comment on above: Performed By: #### L 100.0100, L500.4050, L501.5200, L503.6075, L503.6150, L503.6550 #### [facility] [address] [place], [address] Bilirubin [Mass/Vol] 0.40 mg/dL Normal 0.20-1.00 [facility] Comment on above: Result Comment: For patients on eltrombopag therapy, use of Dimension Harlan TBIL is not recommended. Performed By: #### L 100.0100, L500.4050, L501.5200, L503.6075, L503.6150, L503.6550 #### [facility] [address] [place], [address] BUN/CRE 26.1 RATIO High 10-20 [facility] Comment on above: Performed By: #### L 100.0100, L500.4050, L501.5200, L503.6075, L503.6150, L503.6550 #### [facility] [address] [place], [address] CA,Total 9.3 mg/dL Normal 8.5-10.1 [facility] Comment on above: Performed By: #### L 100.0100, L500.4050, L501.5200, L503.6075, L503.6150, L503.6550 #### [facility] [address] [place], [address] Chloride [Moles/Vol] 111 mmol/L High 98-107 [facility] Comment on above: Performed By: #### L 100.0100, L500.4050, L501.5200, L503.6075, L503.6150, L503.6550 #### [facility] [address] [place], [address] CO2 [Moles/Vol] 26.0 mmol/L Normal 21.0-32.0 [facility] Comment on above: Performed By: #### L 100.0100, L500.4050, L501.5200, L503.6075, L503.6150, L503.6550 #### [facility] [address] [place], [address] Creatinine [Mass/Vol] 0.77 mg/dL Normal 0.55-1.02 [facility] Comment on above: Result Comment: The validity of the calculated GFR GFRAA in patients over 70 years has not been determined. Clinical correlation is essential. Performed By: #### L 100.0100, L500.4050, L501.5200, L503.6075, L503.6150, L503.6550 #### [facility] [address] [place], [address] EST GFR - AA 97 mL/min Normal >60 [facility] Comment on above: Result Comment: Afri can Croatian GFR Calc Performed By: #### L 100.0100, L500.4050, L501.5200, L503.6075, L503.6150, L503.6550 #### [facility] [address] [place], [address] GAP 3 Low 5-15 [facility] Comment on above: Performed By: #### L 100.0100, L500.4050, L501.5200, L503.6075, L503.6150, L503.6550 #### [facility] [address] [place], [address] GFR/1.73 sq M.predicted among non-blacks MDRD (S/P/Bld) [Vol rate/Area] 80 mL/min/{1.73_m2} Normal >60 [facility] Comment on above: Result Comment: Non- GFR Calc Performed By: #### L 100.0100, L500.4050, L501.5200, L503.6075, L503.6150, L503.6550 #### [facility] [address] [place], [address] Globulin (S) [Mass/Vol] 3.3 g/dL Normal 2.2-4.2 [facility] Comment on above: Performed By: #### L 100.0100, L500.4050, L501.5200, L503.6075, L503.6150, L503.6550 #### [facility] [address] [place], [address] Glucose [Mass/Vol] 83 mg/dL Normal 74-106 [facility] Comment on above: Performed By: #### L 100.0100, L500.4050, L501.5200, L503.6075, L503.6150, L503.6550 #### [facility] [address] [place], [address] Potassium [Moles/Vol] 4.0 mmol/L Normal 3.5-5.1 [facility] Comment on above: Performed By: #### L 100.0100, L500.4050, L501.5200, L503.6075, L503.6150, L503.6550 #### [facility] [address] [place], [address] Sodium [Moles/Vol] 140 mmol/L Normal 136-145 [facility] Comment on above: Performed By: #### L 100.0100, L500.4050, L501.5200, L503.6075, L503.6150, L503.6550 #### [facility] [address] [place], [address] T PROT 6.9 g/dL Normal 6.4-8.2 [facility] Comment on above: Performed By: #### L 100.0100, L500.4050, L501.5200, L503.6075, L503.6150, L503.6550 #### [facility] [address] [place], [address] Urea nitrogen [Mass/Vol] 20 mg/dL High 7-18 [facility] Comment on above: Performed By: #### L 100.0100, L500.4050, L501.5200, L503.6075, L503.6150, L503.6550 #### [facility] [address] [place], [address] Ferritinon 01-17-2024 Ferritin [Mass/Vol] 90 ng/mL Normal 8-252 [facility] Comment on above: Performed By: #### L 100.0100, L500.4050, L501.5200, L503.6075, L503.6150, L503.6550 #### [facility] [address] [place], [address] Internal Medicine Office Vis siva 01-17-2024 Internal Medicine Office Visit [facility] [address] [place], [place] [address] OFFICE VISIT Date of Service: 01/17/24 MR#: [id number] Acct: [id number] Name: BETSY ROCHA Rep #: [id number] : 1960 Provider: Dr. 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 Is patient in pain?: Yes (R lower leg pain) Pain scale (1-10): 4 Allergies bee venom protein (honey bee) Allergy (Intermediate, Verified 01/17/24 08:30) internal itching clindamycin Allergy (Mild, Verified 01/17/24 08:30) Rash Sulfa (Sulfonamide Antibiotics) Allergy (Mild, Verified 01/17/24 08:30) Rash scopolamine Adverse Reaction (Verified 01/17/24 08:30) blurry vision Medications ???Medication ???Instructions ???Recorded ???Confirmed ???Type lisinopril 5 mg tablet 1 tab PO QHS 90 days ##90 11/04/17 01/17/24 History turmeric root extract 1,053 mg 1,076 mg PO DAILY 05/04/22 01/17/24 History tablet acetaminophen 650 mg 650 mg PO Q12H 09/25/22 01/17/24 History tablet,extended release (Tylenol Arthritis Pain) cyclobenzaprine 5 mg tablet 5 mg PO TID PRN muscle spasm 09/25/22 01/17/24 History cholecalciferol (vitamin D3) 125 3,000 unit PO DAILY 01/04/23 01/17/24 History mcg (5,000 unit) capsule diclofenac sodium 1 % topical gel 2 g topical ONCE 01/04/23 01/17/24 History (Voltaren Arthritis Pain) pyridoxine (vitamin B6) 100 mg 100 mg PO DAILY 01/04/23 01/17/24 History tablet zoledronic acid 5 mg/100 mL in See Rx Instructions .Route 01/10/24 07/29/24 Rx mannitol 5 %-water intravenous .COMPLEX #100 mL piggybck mecobalamin (vitamin B12) 1,000 1,000 mcg PO DAILY 07/22/23 01/17/24 History mcg chewable tablet Have you fallen in the past year?: Yes (was discussed at last appointment) [facility] Medical History (Updated 01/17/24 @ 12:[address] Miesha Foster MD) Restless leg syndrome Right leg pain Screening for iron deficiency anemia Falls Renal stone Neuropathy Post-menopausal Alcohol use Back pain Injury of head and neck Gastric reflux Non-smoker Proteinuria Preventative health care Colon cancer screening Vertigo Persistent headaches Fractures Cataracts, bilateral Stage 3a chronic kidney disease (CKD) Osteoporosis Child Arthritis Hypertension Surgical History Hx of decompressive lumbar laminectomy Hx of colonoscopy Family History Mother Lung cancer Myocardial infarction Heart disease Hypertension Cancer SKIN-BASAL CELL Sister Osteoporosis Breast cancer Other Dementia Social History Smoking Status: Never smoker alcohol intake: current alcohol intake frequency: holidays/special occasions only Alcohol type: wine substance use type: does not use what type of physical activity do you participate in: weight training frequency: 3-4 times per week seatbelt use: always do you feel safe at home: Yes HPI HPI Chief Complaint: Follow-up chronic conditions Details: BETSY ROCHA, is a 63 F who presents to the office today for follow-up of her chronic medical conditions. Also has some concerns. She reports pain in her right rhodes which started after walking 2 miles. This was longer than typical for her. Soon after that, also did another long walk. She states that she wears good shoes on her walks. Has not tried anything [id number] to help with pain. No numbness or tingling extending from her back to her extremities. No recent falls. Pain is not worsening. Also reports occasional sensation in her lower extremities. Typically happens at night when out to sleep. Improves with walking around and trying to relax. As above, no numbness or tingling rep orted. Other chronic medical conditions are largely stable. ROS Const Constitutional: No body ache, chills, excessive sweating, fatigue, fever(s), frequent falls, headache(s), snoring, weakness, sleep problems or change in appetite Eyes Eyes: No blurry vision, change in vision, floaters, visual disturbances, eye pain or Light sensitivity ENT ENT: No abnormal hearing, ear or mastoid pain, tinnitus, balance problems, nosebleed/epistaxis, nasal congestion, headache(s), neck pain or sore throat Res (more content not included)... Normal [facility] Ironon 01-17-2024 Iron [Mass/Vol] 98 ug/dL Normal 50-170 [facility] Comment on above: Performed By: #### L 100.0100, L500.4050, L501.5200, L503.6075, L503.6150, L503.6550 #### [facility] [address] [place], [place], [address] Iron Binding Capacity,Totalo n 01-17-2024 TIBC 276 ug/dL Normal 250-450 [facility] Comment on above: Performed By: #### L 100.0100, L500.4050, L501.5200, L503.6075, L503.6150, L503.6550 #### [facility] [address] [place], [place], [address] Magnesiumon 01-17-2024 Magnesium [Mass/Vol] 2.2 mg/dL Normal 1.6-2.6 [facility] Comment on above: Performed By: #### L 100.0100, L500.4050, L501.5200, L503.6075, L503.6150, L503.6550 #### [facility] [address] [place], [place], [address] CNOVon 07-06-2023 CNOV Office Visit (OBGYWM ) BETSY ROCHA ([id number]) 1960 F Date Time Provider Department 07/06/23 10:30 AM SHEILA VALDEZ OBGYWM During your visit today, we recorded the following information about you: Blood pressure Weight Height 120/84 71.7 kg 1.651 m Sheila Valdez APRN.WAREHOUSE DRIVER 07/06/2023 11:06 AM Signed Director Of Government Sales offered: Patient declines. Betsy is a 62 year old who presents for an annual gynecologic exam with complaints, vaginal dryness and pain with intercourse. Postmenopausal: Yes since age 51 HRT use: No. 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 Jul 27. Esophageal reflux 02/02/2006 Heel spur Internal hemorrhoids without mention of complication PMH - PAST MEDICAL HISTORY OF persistant protein in urine Tendonitis of wrist, left PAST SURGICAL HISTORY Procedure Laterality Date BACK SURGERY HX 11/06/2022 COLONOSCOPY FLX DX W/COLLJ SPEC WHEN PFRMD 05/24/2012 Colonoscopy repeat 10 years UNSPECIFIED ORAL SURGERY PROCEDURE, BY REPORT Reading Teeth x4 FAMILY HISTORY Problem Relation Age of Onset Hypertension Mother Heart Mother 6 WAY HEART BYPASS other (Lung Tumor) Mother Non-smoker Prostate Cancer Father Hypertension Sister thyroid dysfunction Breast Cancer Sister 01/03/09 metastic to bones other (MALIGNANT MELANOMA) Sister Diabetes Maternal Grandfather SOCIAL HISTORY Social History Tobacco Use Smoking status: Never Smokeless tobacco: Never Vaping Use Vaping Use: Never used Substance Use Topics Alcohol use: No Drug use: No REVIEW OF SYSTEMS Abdomen: No abdominal pain, nausea, vomiting, diarrhea, or constipation. No bloating, early satiety, indigestion, or increased flatulence. Bladder: No dysuria, gross hematuria, urinary frequency, urinary urgency, or incontinence Breast: No breast lumps, nipple d/c, overlying skin changes, redness or skin retraction Allergies and current medication updated:Yes EXAM: BP 120/84 Ht 5' 5 (1.65m) Wt 158 lb (71.7kg) LMP 03/01/2012 BMI 26.29 kg/(m2). GENERAL: pleasant, female in no apparent distress HEENT: Normocephalic, atraumatic, mucus membranes moist, and no lesions NECK: Supple, full range of motion, no adenopathy, and thyroid normal DERMATOLOGY: Normal, without lesions, non-icteric, and non-hirsute BREAST: soft, non-tender, symmetric, no dominant mass, normal nipple-areolar complex, no lymphadenopathy, and no nipple discharge CHEST: Normal inspiratory effort ABDOMEN: soft, non-tender, and no masses PELVIC: external genitalia normal, normal Bartholin's glands, urethra, [place]'s glands, no vulvar lesions, no cervical lesions, good vaginal support, physiologic discharge present, normal appearing perineal body and perianal region BIMANUAL: uterus normal size, shape and consistency, no adnexal masses, and non-tender RECTOVAGINAL: deferred. NEURO: alert and oriented x3,exam grossly non-focal EXTREMITIES: normal ASSESSMENT/PLAN: 1) Health maintenance: Pap done with HPV. Mammogram ordered - for [facility] Mammogram up to date Nutrition, exercise and routine health maintenance exams reviewed. Calcium/Vitamin D supplementation information provided. Colon cancer screening: up to date with screening follow by PCP BMD: followed by PCP 2) Follow up one year or sooner as needed Estrace cream ordered faxed to [facility] retail pharmacy GIULIA Rawls Renee, APRN.CNP 07/06/2023 10:36 AM Signed BONE MINERAL DENSITY PATIENT INSTRUCTIONS Bone mineral density testing measures the amount of calcium in certain parts of your bones. This information determines how strong your bones are. The test is used to detect osteoporosis, a disease in which the bone's mineral content and density are low, increasing a person's risk of fractures. The lumbar spine (lower back) and the hip are the skeletal sites usually examined. For the test, remember that: 1. You cannot take this test if you are . 2. Eat a normal diet on the day of the test. 3. Take your medications as you normally would. 4. DO NOT take calcium supplements (such as Tums) for 24 hours before the test. 5. On the day of the test, leave valuables (jewelry or credit c (more content not included)... Normal [facility] HPV W/GENOTYPE THIN PREPon 0 07-06-2023 HPV 16 Ag Ql (Unsp spec) Negative Normal Neg ative for HPV DNA high risk type 16 by PCR [facility] Comment on above: Order Comment: Speci men Type: FLUID SPECIMEN Ordering Facility: [facility] Address: [address] [place] [address] Performed By: #### L [id number], HPVHRT #### [facility] CLIA [id number] [address] [place] [address] [place] HPV 18 Ag Ql (Unsp spec) Negative Normal Neg ative for HPV DNA high risk type 18 by PCR [facility] Comment on above: Order Comment: Speci men Type: FLUID SPECIMEN Ordering Facility: [facility] Address: [address] [place] [address] Performed By: #### L [id number], HPVHRT #### [facility] CLIA [id number] [address] [place] [address] [place] HPV 31+33+35+39+45+51+52+56+ 58+59+66+68 DNA JANAY+probe Ql (Cvx) Negative for HPV DNA high risk types: 31,33,35,39,45,51,52, 56,58,59,66,68 by PCR. Normal Negative for HPV DNA high risk types: 31,33,35,39,4 5,51,52,56,58 ,59,66,68 by PCR. [facility] Comment on above: Order Comment: Speci men Type: FLUID SPECIMEN Ordering Facility: [facility] Address: [address] [place] [address] Performed By: #### L [id number], HPVHRT #### [facility] CLIA [id number] [address] [place] [address] [place] PAP TESTon 07-06-2023 ADEQUACY Satisfactory for interpretation Normal [facility] Comment on above: Order Comment: Speci men Type: FLUID SPECIMEN Ordering Facility: [facility] Address: [address] [place] [address] Performed By: #### L [id number], HPVHRT #### [facility] CLIA [id number] [address] [place] [address] [place] CASE REPORT Normal [facility] Comment on above: Order Comment: Speci men Type: FLUID SPECIMEN Ordering Facility: [facility] Address: [address] [place] [address] Result Comment: Gyne cologic Cytology Report Case: [id number] Authorizing Provider: Sheila Valdez APRN.WAREHOUSE DRIVER Collected: 07/06/2023 11:05 AM Ordering Location: OB/Gynecology Received: 07/06/2023 11:57 AM First Screen: Rosa, Missy, CT, ASCP Specimen: Pap Test, ThinPrep, Cervix Performed By: #### L [id number], HPVHRT #### [facility] CLIA [id number] [address] [place] [address] [place] CLINICAL HISTORY, CYTOLOGY, ANALYTICAL SCIENCES DIRECTOR Post Menopausal Normal [facility] Comment on above: Order Comment: Speci men Type: FLUID SPECIMEN Ordering Facility: [facility] Address: [address] [place] [address] Performed By: #### L [id number], HPVHRT #### [facility] CLIA [id number] [address] [place] [address] [place] FINAL PERFORMING LAB Normal [facility] Comment on above: Order Comment: Speci men Type: FLUID SPECIMEN Ordering Facility: [facility] Address: [address] [place] [address] Result Comment: Tech nical component, tactical air control party screening performed at [facility], [facility] Replaced By [facility] [place] [address] CLIA# [id number] Diagnostic interpretation performed at [facility], [facility] [place] [id number] CLIA# [id number] Support Director: Rafael Dinh M.D. Performed By: #### L [id number], HPVHRT #### [facility] CLIA [id number] [address] [place] [address] [place] HPV REFLEX Yes HPV Normal [facility] Comment on above: Order Comment: Speci men Type: FLUID SPECIMEN Ordering Facility: [facility] Address: [address] [place] [address] Performed By: #### L [id number], HPVHRT #### [facility] CLIA [id number] [address] [place] [address] [place] INTERPRETATION, CYTOLOGY, ANALYTICAL SCIENCES DIRECTOR Normal [facility] Comment on above: Order Comment: Speci men Type: FLUID SPECIMEN Ordering Facility: [facility] Address: [address] [place] [address] Result Comment: Nega tive for intraepithelial lesion or malignancy. Performed By: #### L [id number], HPVHRT #### [facility] CLIA [id number] [address] [place] [address] [place] PAP DISCLAIMER COMMENT The Pap Smear is a screening test for cervical cancer. False negative results occur with all screening tests, emphasizing the need for rescreening at recommended intervals, and clinical correlation. Normal [facility] Comment on above: Order Comment: Speci men Type: FLUID SPECIMEN Ordering Facility: [facility] Address: [address] [place] [address] Performed By: #### L [id number], HPVHRT #### [facility] CLIA [id number] [address] [place] [address] [place] PAP OIL SPECULATOR COMMENT This specimen has been analyzed by the ThinPrep Imaging System, an automated imaging and review system, which assists the laboratory in evaluating cells on ThinPrep Pap tests. Following automated imaging, selected galan from every slide are reviewed by a tactical air control party. Normal [facility] Comment on above: Order Comment: Speci men Type: FLUID SPECIMEN Ordering Facility: [facility] Address: [place] [address] Performed By: #### L [id number], HPVHRT #### [facility] CLIA [id number] [address] [place] [address] [place] Basophil percentageOrdered B y: Miesha Foster on 07-05-2023 Basophil percentage 10-25 SEEN /hpf 0-5 [facility] Bilirubin Test strip Ql (U)O rdered By: Miesha Foster on 07-05-2023 Bilirubin Ql (U) Negative Negative [facility] Ketones Test strip Ql (U)Ord ered By: Miesha Foster on 07-05-2023 Ketones Ql (U) Negative Negative [facility] Laboratory - Chemistry and C hemistry - challengeOrdered By: Miesha Foster on 07-05-2023 Cobalamin (Vitamin B12) [Mass/Vol] 385 pg/mL 211-911 [facility] Mucus LM Ql (Urine sed)Order ed By: Miesha Foster on 07-05-2023 Mucus Ql (Urine sed) 0 SEEN /hpf [facility] Nitrite Test strip Ql (U)Ord ered By: Miesha Foster on 07-05-2023 Nitrite Ql (U) Negative Negative [facility] Protein Test strip Ql (U)Ord ered By: Miesha Foster on 07-05-2023 Protein Ql (U) Negative Negative [facility] Squamous epithelial cells de tection in urine sediment by light microscopyOrdered By: Miesha Foster on 07-05-2023 Epithelial cells.squamous LM Ql (Urine sed) 0-5 SEEN /hpf 5-10 [facility] Urine blood detectionOrdered By: Miesha Foster on 07-05-2023 RBC Ql (U) 10 /ul Negative [facility] RBC Ql (U) 0-5 SEEN /hpf 0-5 [facility] Urine clarityOrdered By: Qasim Foster on 07-05-2023 Clarity (U) Clear Clear [facility] Urine color determinationOrd ered By: Miesha Foster on 07-05-2023 Color (U) Straw Yellow [facility] Urine glucose detectionOrder ed By: Miesha Foster on 07-05-2023 Glucose Ql (U) Normal mg/dl Normal [facility] Urine leukocyte esterase det ection by dipstickOrdered By: Miesha Foster on 07-05-2023 Leukocyte esterase Test strip Ql (U) 100 /ul Negative [facility] Urine pHOrdered By: Amelia Foster on 07-05-2023 pH (U) 6.0 [pH] 5.0 - 8.0 [facility] [facility] [place] Urine sediment bacteria coun t by microscopy (number/high power field)Ordered By: Miesha Foster on 07-05-2023 Bacteria LM.HPF (Urine sed) [#/Area] RARE /hpf None Seen [facility] Urine specific gravity measu rementOrdered By: Miesha Foster on 07-05-2023 Specific gravity (U) [Rel density] 1.015 1.002-1.030 [facility] Urobilinogen Auto test strip Ql (U)Ordered By: Miesha Foster on 07-05-2023 Urobilinogen Ql (U) Normal mg/dl Normal [facility] Basophil percentageOrdered B y: Devon Black on 06-30-2023 Bilirubin [Mass/Vol] 0.40 mg/dL 0.20-1.00 [facility] Comment on above: For patients on eltr ombopag therapy, use of Dimension [place] TBIL is not recommended. Chloride [Moles/Vol] 106 mmol/L 98-107 [facility] Glucose [Mass/Vol] 107 mg/dL 74-106 [facility] Comment on above: Fasting Glucose resu lt from 100 to 125 mg/dL suggests IMPAIRED HOMEOSTASIS per A.D.A. criteria. Potassium [Moles/Vol] 4.1 mmol/L 3.5-5.1 [facility] Protein [Mass/Vol] 7.1 g/dL 6.4-8.2 [facility] Sodium [Moles/Vol] 138 mmol/L 136-145 [facility] Laboratory - Chemistry and C hemistry - challengeOrdered By: Devon Black on 06-30-2023 ALP [Catalytic activity/Vol] 72 U/L 45-117 [facility] ALT [Catalytic activity/Vol] 27 U/L 13-56 [facility] CO2 [Moles/Vol] 27.0 mmol/L 21.0-32.0 [facility] Globulin (S) [Mass/Vol] 3.3 g/dL 2.2-4.2 [facility] Urea nitrogen/Creatinine [Mass ratio] 23.8 mg/mg 10-20 [facility] No Panel InformationOrdered By: Devon Black on 06-30-2023 Estimated GFR (MDRD) Amer 79 mL/min >60 [facility] Comment on above: GFR Calc Estimated GFR (MDRD) Non-Af Amer 65 mL/min >60 [facility] Comment on above: Non- GFR Calc Vitamin D 25-Hydroxy 57.6 ng/mL [facility] Comment on above: Vitamin D 25(OH) Sta tus Range Deficiency <20 ng/mL (50nmol/L) Insufficiency 20 - 30 ng/mL (50 - 75 nmol/L) Sufficiency 30 - 100 ng/mL (75 - 250 nmol/L) Toxicity >100 ng/mL (>250 nmol/L) Serum or plasma albumin nestor urement (mass/volume)Ordered By: Devon Black on 06-30-2023 Albumin [Mass/Vol] 3.8 g/dL 3.2-5.0 [facility] Serum or plasma albumin/glob ulin mass ratioOrdered By: Devon Black on 06-30-2023 Albumin/Globulin [Mass ratio] 1.2 {ratio} 0.9-2.4 [facility] Serum or plasma calcium nestor urement (mass/volume)Ordered By: Devon Black on 06-30-2023 Calcium [Mass/Vol] 9.8 mg/dL 8.5-10.1 [facility] Serum or plasma creatinine m easurement (mass/volume)Ordered By: Devon Black on 06-30-2023 Creatinine [Mass/Vol] 0.92 mg/dL 0.55-1.02 [facility] Comment on above: The validity of the calculated GFR & GFRAA in patients over 70 years has not been determined. Clinical correlation is essential. Serum or plasma urea nitroge n measurement (mass/volume)Ordered By: Devon Black on 06-30-2023 Urea nitrogen [Mass/Vol] 22 mg/dL 7-18 [facility] Thin prep Papanicolaou smear with manual screeningOrdered By: Devon Black on 06-30-2023 Thin prep Papanicolaou smear with manual screening 18 U/L 15-37 [facility] Thin prep Papanicolaou smear with manual screening 5 5-15 [facility] Absolute lymphocyte countOrd ered By: Liam Arango on 06-01-2023 Lymphocytes Auto (Unsp spec) [#/Vol] 2.19 10*3/uL 0.83-4.51 [facility] Basophil percentageOrdered B y: Liam Arango on 06-01-2023 Basophil percentage 0-5 SEEN /hpf 0-5 [facility] Basophils/100 WBC (Bld) 0.5 % 0-1 [facility] Chloride [Moles/Vol] 106 mmol/L 98-107 [facility] Eosinophils/100 WBC (Bld) 4.1 % 0-5 [facility] Glucose [Mass/Vol] 112 mg/dL 74-106 [facility] Comment on above: Fasting Glucose resu lt from 100 to 125 mg/dL suggests IMPAIRED HOMEOSTASIS per A.D.A. criteria. Neutrophils (Bld) [#/Vol] 2.8 10*3/uL 2.0-7.7 [facility] Neutrophils/100 WBC (Bld) 47.7 % 47-70 [facility] Potassium [Moles/Vol] 4.0 mmol/L 3.5-5.1 [facility] Comment on above: Moderate Hemolysis, Result may be falsely increased. Sodium [Moles/Vol] 139 mmol/L 136-145 [facility] WBC (Bld) [#/Vol] 5.8 10*3/uL 4.4-11.0 [facility] Bilirubin Test strip Ql (U)O rdered By: Liam Arango on 06-01-2023 Bilirubin Ql (U) Negative Negative [facility] Blood erythrocytes count (nu mber/volume)Ordered By: Liam Arango on 06-01-2023 RBC (Bld) [#/Vol] 4.92 10*6/uL 4.2-5.4 [facility] Blood hemoglobin measurement (mass/volume)Ordered By: Liam Arango on 06-01-2023 Hemoglobin (Bld) [Mass/Vol] 14.5 g/dL 12.0-15.0 [facility] Blood lymphocytes/100 leukoc ytesOrdered By: Liam Arango on 06-01-2023 Lymphocytes/100 WBC (Bld) 37.8 % 19-41 [facility] Blood monocytes/100 leukocyt esOrdered By: Liam Arango on 06-01-2023 Monocytes/100 WBC (Bld) 9.7 % 0-10 [facility] Blood platelet mean volumeOr dered By: Liam Arango on 06-01-2023 Platelet mean volume (Bld) [Entitic vol] 10.5 fL 6.2-12.0 [facility] Determination of erythrocyte mean corpuscular volume (MCV)Ordered By: Liam Arango on 06-01-2023 MCV (RBC) [Entitic vol] 88.4 fL 81-99 [facility] Hematocrit Auto (Bld) [Volum e fraction]Ordered By: Liam Arango on 06-01-2023 Hematocrit (Bld) [Volume fraction] 43.5 % 37-47 [facility] Ketones Test strip Ql (U)Ord ered By: Liam Arango on 06-01-2023 Ketones Ql (U) Negative Negative [facility] Laboratory - Chemistry and C hemistry - challengeOrdered By: Liam Arango on 06-01-2023 CO2 [Moles/Vol] 25.0 mmol/L 21.0-32.0 [facility] Urea nitrogen/Creatinine [Mass ratio] 23.1 mg/mg 10-20 [facility] Laboratory - Hematology and Cell countsOrdered By: Liam Arango on 06-01-2023 Erythrocyte distribution width (RBC) [Entitic vol] 40.7 fL 35.1-43.9 [facility] Erythrocyte distribution width (RBC) [Ratio] 12.6 % 11.6-14.6 [facility] Immature granulocytes/100 WBC (Bld) 0.200 % 0.0-0.9 [facility] Comment on above: IG% - Immature Granu locytes (promyelocytes, myelocytes and metamyelocytes) > 1% indicates that a LEFT SHIFT is Present. MCH (RBC) [Entitic mass] 29.5 pg 27.0-32.0 [facility] Nucleated RBC/100 WBC (Bld) [Ratio] 0 % 0-5 [facility] MCHC Auto (RBC) [Mass/Vol]Or dered By: Liam Arango on 06-01-2023 MCHC (RBC) [Mass/Vol] 33.3 g/dL 32-36 [facility] Mucus LM Ql (Urine sed)Order ed By: Liam Arango on 06-01-2023 Mucus Ql (Urine sed) 0 SEEN /hpf [facility] Nitrite Test strip Ql (U)Ord ered By: Liam Arango on 06-01-2023 Nitrite Ql (U) Negative Negative [facility] No Panel InformationOrdered By: Liam Arango on 06-01-2023 Estimated Creatinine Clearance Calc 42.27 ml/min [facility] Estimated GFR (MDRD) Amer 58 mL/min >60 [facility] Comment on above: GFR Calc Estimated GFR (MDRD) Non-Af Amer 48 mL/min >60 [facility] Comment on above: Non- GFR Calc Platelets bldOrdered By: Ciarra Arango on 06-01-2023 Platelets (Bld) [#/Vol] 258 10*3/uL 150-450 [facility] Protein Test strip Ql (U)Ord ered By: Liam Arango on 06-01-2023 Protein Ql (U) 30 mg/dl Negative [facility] Serum or plasma calcium nestor urement (mass/volume)Ordered By: Liam Arango on 06-01-2023 Calcium [Mass/Vol] 9.3 mg/dL 8.5-10.1 [facility] Serum or plasma creatinine m easurement (mass/volume)Ordered By: Liam Arango on 06-01-2023 Creatinine [Mass/Vol] 1.21 mg/dL 0.55-1.02 [facility] Comment on above: The validity of the calculated GFR & GFRAA in patients over 70 years has not been determined. Clinical correlation is essential. Serum or plasma urea nitroge n measurement (mass/volume)Ordered By: Liam Arango on 06-01-2023 Urea nitrogen [Mass/Vol] 28 mg/dL 7-18 [facility] Squamous epithelial cells de tection in urine sediment by light microscopyOrdered By: Liam Arango on 06-01-2023 Epithelial cells.squamous LM Ql (Urine sed) 0-5 SEEN /hpf 5-10 [facility] Thin prep Papanicolaou smear with manual screeningOrdered By: Liam Arango on 06-01-2023 Thin prep Papanicolaou smear with manual screening 8 5-15 [facility] Urine blood detectionOrdered By: Liam Arango on 06-01-2023 RBC Ql (U) 250 /ul Negative [facility] RBC Ql (U) 10-25 SEEN /hpf 0-5 [facility] Urine clarityOrdered By: Ciarra Arango on 06-01-2023 Clarity (U) Clear Clear [facility] Urine color determinationOrd ered By: Liam Arango on 06-01-2023 Color (U) Yellow Yellow [facility] Urine glucose detectionOrder ed By: Liam Arango on 06-01-2023 Glucose Ql (U) 50 mg/dl Normal [facility] Urine leukocyte esterase det ection by dipstickOrdered By: Liam Arango on 06-01-2023 Leukocyte esterase Test strip Ql (U) 25 /ul Negative [facility] Urine pHOrdered By: Liam Contreras gur on 06-01-2023 pH (U) 6.0 [pH] 5.0 - 8.0 [facility] Urine sediment bacteria coun t by microscopy (number/high power field)Ordered By: Liam Arango on 06-01-2023 Bacteria LM.HPF (Urine sed) [#/Area] 0 /[HPF] None Seen [facility] Urine specific gravity measu rementOrdered By: Liam Arango on 06-01-2023 Specific gravity (U) [Rel density] 1.020 1.002-1.030 [facility] Urobilinogen Auto test strip Ql (U)Ordered By: Liam Arango on 06-01-2023 Urobilinogen Ql (U) Normal mg/dl Normal [facility] Basophil percentageOrdered B y: Dirk Watson on 04-15-2023 Basophil percentage 3.2 mg/dL 2.5-4.9 [facility] Chloride [Moles/Vol] 105 mmol/L 98-107 [facility] Glucose [Mass/Vol] 117 mg/dL 74-106 [facility] Comment on above: Fasting Glucose resu lt from 100 to 125 mg/dL suggests IMPAIRED HOMEOSTASIS per A.D.A. criteria. Potassium [Moles/Vol] 3.9 mmol/L 3.5-5.1 [facility] Sodium [Moles/Vol] 138 mmol/L 136-145 [facility] WBC (Bld) [#/Vol] 5.7 10*3/uL 4.4-11.0 [facility] Blood erythrocytes count (nu mber/volume)Ordered By: Dirk Watson on 04-15-2023 RBC (Bld) [#/Vol] 4.66 10*6/uL 4.2-5.4 [facility] Blood hemoglobin measurement (mass/volume)Ordered By: Dirk Watson on 04-15-2023 Hemoglobin (Bld) [Mass/Vol] 13.9 g/dL 12.0-15.0 [facility] Blood platelet mean volumeOr dered By: Dirk Watson on 04-15-2023 Platelet mean volume (Bld) [Entitic vol] 10.6 fL 6.2-12.0 [facility] Determination of erythrocyte mean corpuscular volume (MCV)Ordered By: Dirk Watson on 04-15-2023 MCV (RBC) [Entitic vol] 91.4 fL 81-99 [facility] Hematocrit Auto (Bld) [Volum e fraction]Ordered By: Dirk Watson on 04-15-2023 Hematocrit (Bld) [Volume fraction] 42.6 % 37-47 [facility] Laboratory - Chemistry and C hemistry - challengeOrdered By: Cherylemayelin Watson on 04-15-2023 CO2 [Moles/Vol] 27.0 mmol/L 21.0-32.0 [facility] Magnesium [Mass/Vol] 2.5 mg/dL 1.6-2.6 [facility] Urea nitrogen/Creatinine [Mass ratio] 21.6 mg/mg 10- [facility] Laboratory - Hematology and Cell countsOrdered By: [facility]mel[facility] on 04-15-2023 Erythrocyte distribution width (RBC) [Entitic vol] 41.6 fL 35.1-43.9 [facility] Erythrocyte distribution width (RBC) [Ratio] 12.5 % 11.6-14.6 [facility] MCH (RBC) [Entitic mass] 29.8 pg 27.0-32.0 [facility] MCHC Auto (RBC) [Mass/Vol]Or dered By: Cherylest. [facility] campusmelvin Watson on 04-15-2023 MCHC (RBC) [Mass/Vol] 32.6 g/dL 32-36 [facility] No Panel InformationOrdered By: Dirk Watson on 04-15-2023 Estimated GFR (MDRD) Amer 70 mL/min >60 [facility] Comment on above: GFR Calc Estimated GFR (MDRD) Non-Af Amer 58 mL/min >60 [facility] Comment on above: Non- GFR Calc Parathyroid Hormone (Intact) 62.2 pg/mL 18.4-80.1 [facility] Urine Microalbumin/Creatinine Ratio 11.9 mg/g CRE <30 [facility] Vitamin D 25-Hydroxy 54.0 ng/mL [facility] Comment on above: Vitamin D 25(OH) Sta tus Range Deficiency <20 ng/mL (50nmol/L) Insufficiency 20 - 30 ng/mL (50 - 75 nmol/L) Sufficiency 30 - 100 ng/mL (75 - 250 nmol/L) Toxicity >100 ng/mL (>250 nmol/L) Platelets bldOrdered By: Cheryle Watson on 04-15-2023 Platelets (Bld) [#/Vol] 262 10*3/uL 150-450 [facility] Serum or plasma albumin nestor urement (mass/volume)Ordered By: Dirk Watson on 04-15-2023 Albumin [Mass/Vol] 3.9 g/dL 3.2-5.0 [facility] Serum or plasma calcium nestor urement (mass/volume)Ordered By: Dirk Watson on 04-15-2023 Calcium [Mass/Vol] 9.7 mg/dL 8.5-10.1 [facility] Serum or plasma creatinine m easurement (mass/volume)Ordered By: Dirk Watson on 04-15-2023 Creatinine [Mass/Vol] 1.02 mg/dL 0.55-1.02 [facility] Comment on above: The validity of the calculated GFR & GFRAA in patients over 70 years has not been determined. Clinical correlation is essential. Serum or plasma urea nitroge n measurement (mass/volume)Ordered By: Dirk Watson on 04-15-2023 Urea nitrogen [Mass/Vol] 22 mg/dL 7-18 [facility] Thin prep Papanicolaou smear with manual screeningOrdered By: Dirk Watson on 04-15-2023 Thin prep Papanicolaou smear with manual screening 13.1 mg/L NO RANGE EST. [facility] Urine creatinine measurement (mass/volume)Ordered By: Dirk Watson on 04-15-2023 Creatinine (U) [Mass/Vol] 110.00 mg/dL NO RANGE EST. [facility] Urine protein measurement (m ass/volume)Ordered By: Dirk Watson on 04-15-2023 Protein (U) [Mass/Vol] 7.4 mg/dL 0.0-11.8 [facility] Urine protein/creatinine mas s ratioOrdered By: Dirk Watson on 04-15-2023 Protein/Creatinine (U) [Mass ratio] 67 mg/g CRE 0-200 [facility] Basophil percentageon 2021 Basophil percentage 2.5 mg/dL 2.5-4.9 [facility] Work Phone: Chloride [Moles/Vol] 108 mmol/L 98-107 [facility] Work Phone: [phone] Glucose [Mass/Vol] 142 mg/dL 74-106 [facility] Work Phone: Comment on above: Fasting Glucose resu lt greater than or equal to 126 mg/dL suggests DIABETES MELLITUS per A.D.A. criteria. Potassium [Moles/Vol] 3.6 mmol/L 3.5-5.1 [facility] Work Phone: [phone] Sodium [Moles/Vol] 141 mmol/L 136-145 [facility] Work Phone: [phone] WBC (Bld) [#/Vol] 5.4 10*3/uL 4.4-11.0 [facility] Work Phone: Blood erythrocytes count (nu mber/volume)on 01-21-2022 RBC (Bld) [#/Vol] 4.24 10*6/uL 4.2-5.4 [facility] Work Phone: [phone] Blood hemoglobin measurement (mass/volume)on 01-21-2022 Hemoglobin (Bld) [Mass/Vol] 12.5 g/dL 12.0-15.0 [facility] Work Phone: [phone] Blood platelet mean volumeon 01-21-2022 Platelet mean volume (Bld) [Entitic vol] 10.5 fL 6.2-12.0 [facility] Work Phone: [phone] Determination of erythrocyte mean corpuscular volume (MCV)on 01-21-2022 MCV (RBC) [Entitic vol] 88.2 fL 81-99 [facility] Work Phone: [phone] Hematocrit Auto (Bld) [Volum e fraction]on 01-21-2022 Hematocrit (Bld) [Volume fraction] 37.4 % 37-47 [facility] Work Phone: Laboratory - Chemistry and C hemistry - challengeon 01-21-2022 CO2 [Moles/Vol] 29.0 mmol/L 21.0-32.0 [facility] Work Phone: [phone] Magnesium [Mass/Vol] 2.2 mg/dL 1.6-2.6 [facility] Work Phone: [phone] Urea nitrogen/Creatinine [Mass ratio] 17.5 mg/mg 10-20 [facility] Work Phone: [phone] Laboratory - Hematology and Cell countson 01-21-2022 Erythrocyte distribution width (RBC) [Entitic vol] 41.5 fL 35.1-43.9 [facility] Work Phone: [phone] Erythrocyte distribution width (RBC) [Ratio] 12.9 % 11.6-14.6 [facility] Work Phone: [phone] MCH (RBC) [Entitic mass] 29.5 pg 27.0-32.0 [facility] Work Phone: MCHC Auto (RBC) [Mass/Vol]on 01-21-2022 MCHC (RBC) [Mass/Vol] 33.4 g/dL 32-36 [facility] Work Phone: No Panel Informationon 01-21 Estimated GFR (MDRD) Amer 62 mL/min >60 [facility] Work Phone: Comment on above: GFR Calc Estimated GFR (MDRD) Non-Af Amer 51 mL/min >60 [facility] Work Phone: [phone] Comment on above: Non- GFR Calc Parathyroid Hormone (Intact) 61.6 pg/mL 18.4-80.1 [facility] Work Phone: Urine Microalbumin/Creatinine Ratio 10.7 mg/g CRE <30 [facility] Work Phone: [phone] Vitamin D 25-Hydroxy 62.3 ng/mL [facility] Work Phone: Comment on above: Vitamin D 25(OH) Sta tus Range Deficiency <20 ng/mL (50nmol/L) Insufficiency 20 - 30 ng/mL (50 - 75 nmol/L) Sufficiency 30 - 100 ng/mL (75 - 250 nmol/L) Toxicity >100 ng/mL (>250 nmol/L) Platelets bldon 01-21-2022 Platelets (Bld) [#/Vol] 218 10*3/uL 150-450 [facility] Work Phone: Serum or plasma albumin nestor urement (mass/volume)on 01-21-2022 Albumin [Mass/Vol] 3.6 g/dL 3.2-5.0 [facility] Work Phone: Serum or plasma calcium nestor urement (mass/volume)on 01-21-2022 Calcium [Mass/Vol] 8.8 mg/dL 8.5-10.1 [facility] Work Phone: [phone] Serum or plasma creatinine m easurement (mass/volume)on 01-21-2022 Creatinine [Mass/Vol] 1.14 mg/dL 0.55-1.02 [facility] Work Phone: Comment on above: The validity of the calculated GFR & GFRAA in patients over 70 years has not been determined. Clinical correlation is essential. Serum or plasma urea nitroge n measurement (mass/volume)on 01-21-2022 Urea nitrogen [Mass/Vol] 20 mg/dL 7-18 [facility] Work Phone: Thin prep Papanicolaou smear with manual screeningon 01-21-2022 Thin prep Papanicolaou smear with manual screening 13.4 mg/L NO RANGE EST. [facility] Work Phone: Urine creatinine measurement (mass/volume)on 01-21-2022 Creatinine (U) [Mass/Vol] 125.00 mg/dL NO RANGE EST. [facility] Work Phone: Vital Signs Date Time Vital Sign Value Performing Clinician Katarina rouse 07-22-2023 15:25-0500 Diastolic blood pressure 82 mm[Hg] Dr. Miesha Foster Work Phone: [facility] 07-22-2023 15:25-0500 Heart rate 67 /min Dr. Miesha Foster Work Phone: [facility] 07-22-2023 15:25-0500 Respiratory rate 16 /min Dr. Miesha Foster Work Phone: [facility] 07-22-2023 15:25-0500 Systolic blood pressure 139 mm[Hg] Dr. Miesha Foster Work Phone: [facility] 07-22-2023 14:31-0500 Body height 165.[address] Miesha Foster Work Phone: [facility] 07-22-2023 14:31-0500 Body mass index (BMI) [Ratio] 25 kg/m2 Dr. Miesha Foster Work Phone: [facility] 07-22-2023 14:31-0500 Body temperature 97.5 [degF] Dr. Miesha Foster Work Phone: [facility] 07-22-2023 14:31-0500 Body weight 68.[address] Miesha Foster Work Phone: [facility] 07-22-2023 14:31-0500 SaO2% (BldA) [Mass fraction] 99 % Dr. Miesha Foster Work Phone: [facility] 07-05-2023 08:32-0500 Body height 165.[address] Miesha Foster Work Phone: [facility] 07-05-2023 08:32-0500 Body mass index (BMI) [Ratio] 25.9 kg/m2 Dr. Miesha Foster Work Phone: [facility] 07-05-2023 08:32-0500 Body temperature 97.5 [degF] Dr. Miesha Foster Work Phone: [facility] 07-05-2023 08:32-0500 Body weight 70.[address] Miesha Foster Work Phone: [facility] 07-05-2023 08:32-0500 Diastolic blood pressure 68 mm[Hg] Dr. Miesha Foster Work Phone: [facility] 07-05-2023 08:32-0500 Heart rate 64 /min Dr. Miesha Foster Work Phone: [facility] 07-05-2023 08:32-0500 Respiratory rate 14 /min Dr. Miesha Foster Work Phone: [facility] 07-05-2023 08:32-0500 SaO2% (BldA) [Mass fraction] 99 % Dr. Miesha Foster Work Phone: [facility] 07-05-2023 08:32-0500 Systolic blood pressure 108 mm[Hg] Dr. Miesha Foster Work Phone: [facility] 06-24-2023 09:23-0500 Body mass index (BMI) [Ratio] 25.7 kg/m2 Dr. Miesha Foster Work Phone: [facility] 06-24-2023 09:23-0500 Body temperature 98.6 [degF] Dr. Miesha Foster Work Phone: [facility] 06-24-2023 09:23-0500 Body weight 70.[address] Miesha Foster Work Phone: [facility] 06-24-2023 09:23-0500 Diastolic blood pressure 75 mm[Hg] Dr. Miesha Foster Work Phone: [facility] 06-24-2023 09:23-0500 Heart rate 76 /min Dr. Miesha Foster Work Phone: [facility] 06-24-2023 09:23-0500 SaO2% (BldA) [Mass fraction] 98 % Dr. Miesha Foster Work Phone: [facility] 06-24-2023 09:23-0500 Systolic blood pressure 113 mm[Hg] Dr. Miesha Foster Work Phone: [facility] 06-01-2023 05:42-0500 Diastolic blood pressure 66 mm[Hg] Dr. Miesha Foster Work Phone: [facility] 06-01-2023 05:42-0500 Heart rate 61 /min Dr. Miesha Foster Work Phone: [facility] 06-01-2023 05:42-0500 Respiratory rate 12 /min Dr. Miesha Foster Work Phone: [facility] 06-01-2023 05:42-0500 SaO2% (BldA) [Mass fraction] 100 % Dr. Miesha Foster Work Phone: [facility] 06-01-2023 05:42-0500 Systolic blood pressure 125 mm[Hg] Dr. Miesha Foster Work Phone: [facility] 06-01-2023 03:36-0500 Body height 165.[address] Miesha Foster Work Phone: [facility] 06-01-2023 03:36-0500 Body mass index (BMI) [Ratio] 26.6 kg/m2 Dr. Miesha Foster Work Phone: [facility] 06-01-2023 03:36-0500 Body temperature 97.2 [degF] Dr. Miesha Foster Work Phone: [facility] 06-01-2023 03:36-0500 Body weight 72.[address] Miesha Foster Work Phone: [facility] 05-24-2023 09:15-0500 Body temperature 97.4 [degF] Dr. Miesha Foster Work Phone: [facility] 05-24-2023 09:15-0500 Diastolic blood pressure 69 mm[Hg] Dr. Miesha Foster Work Phone: [facility] 05-24-2023 09:15-0500 Heart rate 59 /min Dr. Miesha Foster Work Phone: [facility] 05-24-2023 09:15-0500 Respiratory rate 16 /min Dr. Miesha Foster Work Phone: [facility] 05-24-2023 09:15-0500 SaO2% (BldA) [Mass fraction] 100 % Dr. Miesha Foster Work Phone: [facility] 05-24-2023 09:15-0500 Systolic blood pressure 139 mm[Hg] Dr. Miesha Foster Work Phone: [facility] 05-24-2023 07:48-0500 Body height 165.[address] Miesha Foster Work Phone: [facility] 05-24-2023 07:48-0500 Body mass index (BMI) [Ratio] 24.9 kg/m2 Dr. Miesha Foster Work Phone: [facility] 05-24-2023 07:48-0500 Body weight [address] Miesha Foster Work Phone: [facility] 02-18-2023 14:13-0400 Body mass index (BMI) [Ratio] 25 kg/m2 Dr. Miesha Foster Work Phone: [facility] 02-18-2023 14:13-0400 Body weight 68.[address] Miesha Foster Work Phone: [facility] 09-01-2022 13:06-0400 Body height 165.[address] Jose Antonio King Work Phone: [facility] 09-01-2022 13:06-0400 Body mass index (BMI) [Ratio] 25 kg/m2 Dr. Jose Antonio King Work Phone: [facility] 09-01-2022 13:06-0400 Body weight 68.[address] Jose Antonio King Work Phone: [facility] 07-07-2022 08:46-0500 Body height 166.[address] Jose Antonio King Work Phone: [facility] 07-07-2022 08:46-0500 Body temperature 97.4 [degF] Dr. Jose Antonio King Work Phone: [facility] 07-07-2022 08:46-0500 Diastolic blood pressure 64 mm[Hg] Dr. Jose Antonio King Work Phone: [facility] 07-07-2022 08:46-0500 Heart rate 76 /min Dr. Jose Antonio King Work Phone: [facility] 07-07-2022 08:46-0500 Respiratory rate 16 /min Dr. Jose Antonio Knig Work Phone: [facility] 07-07-2022 08:46-0500 SaO2% (BldA) [Mass fraction] 100 % Dr. Jose Antonio King Work Phone: [facility] 07-07-2022 08:46-0500 Systolic blood pressure 129 mm[Hg] Dr. Jose Antonio King Work Phone: [facility] 05-04-2022 08:08-0500 Body mass index (BMI) [Ratio] 25.4 kg/m2 Dr. Jose Antonio King Work Phone: [facility] 05-04-2022 08:08-0500 Body temperature 96.4 [degF] Dr. Jose Antonio King Work Phone: [facility] 05-04-2022 08:08-0500 Body weight 70.[address] Jose Antonio King Work Phone: [facility] 05-04-2022 08:08-0500 Diastolic blood pressure 80 mm[Hg] Dr. Jose Antonio King Work Phone: [facility] 05-04-2022 08:08-0500 Heart rate 70 /min Dr. Jose Antonio King Work Phone: [facility] 05-04-2022 08:08-0500 Respiratory rate 18 /min Dr. Jose Antonio King Work Phone: [facility] 05-04-2022 08:08-0500 SaO2% (BldA) [Mass fraction] 98 % Dr. Jose Antonio King Work Phone: [facility] 05-04-2022 08:08-0500 Systolic blood pressure 138 mm[Hg] Dr. Jose Antonio King Work Phone: [facility] Encounters Encounter Date Encounter Type Care Provider Facility Start: 01-15-[address] [facility] ty:[facility] Start: 11-28-2024 Encounter for genera l adult medical examination without abnormal findings [facility] Start: 10-16-2024 End: 10-16-2024 ambulatory [facility] Facility:[facility] Start: 10-16-2024 End: 10-16-2024 ambulatory [facility] Facility:[facility] Start: 07-24-2024 End: 07-24-2024 ambulatory [facility] Facility:[facility] Start: 06-27-2024 End: 06-27-2024 ambulatory [facility] Facility:[facility] Start: 04-27-2024 End: 04-27-2024 ambulatory Natthmayelin Tanjose miguelichitre Facility:[facility] Start: 04-17-2024 End: 04-17-2024 ambulatory [facility] Facility:[facility] Start: 01-17-2024 End: 01-17-2024 ambulatory [facility] Facility:[facility] Start: 07-22-2023 End: 07-22-[address] Miesha Foster Work Phone: [facility] Work Phone: Start: 07-22-2023 End: 07-22-[address] Miesha Foster Work Phone: [facility] Work Phone: Start: 07-06-2023 End: 07-06-2023 ambulatory [facility] Facility:[facility] Start: 07-05-2023 End: 07-05-[address] Miesha Foster Work Phone: [facility] Work Phone: Start: 07-05-2023 End: 07-05-[address] Miesha Foster Work Phone: [facility] Work Phone: Start: 06-30-2023 End: 06-30-[address] Miesha Foster Work Phone: [facility] Work Phone: Start: 06-30-2023 End: 06-30-[address] Miesha Foster Work Phone: [facility] Start: 06-24-2023 End: 06-24-[address] Miesha Foster Work Phone: [facility] Work Phone: Start: 06-01-2023 End: 06-01-2023 Emergency department patient visit Dr. Miesha Foster Work Phone: [facility]Emer[facility] Work Phone: Start: 05-24-2023 Non-patient / Non-visit Dr. Miesha Foster Work Phone: [facility] Start: 05-24-2023 End: 05-24-2023 Admission to same day surgery center Dr. Miesha Foster Work Phone: [facility]End[facility] Work Phone: Start: 05-24-2023 End: 05-24-[address] Miesha Foster Work Phone: [facility] Work Phone: Start: 04-15-2023 End: 04-15-[address] Miesha Foster Work Phone: [facility] Work Phone: Start: 02-18-2023 Non-patient / Non-visit Dr. Miesha Foster Work Phone: [facility] Work Phone: Start: 01-04-[address] Miesha Foster Work Phone: [facility] Start: 09-28-2022 End: 09-28-[address] Jose Antonio King Work Phone: [facility] Work Phone: Start: 09-28-2022 End: 09-28-[address] Jose Antonio King Work Phone: [facility] Start: 09-28-2022 End: 09-28-2022 Admission to same day surgery center JUAN FRANCISCO GUARDADO DO [facility] Start: 09-25-2022 End: 09-25-[address] Jose Antonio King Work Phone: [facility] Start: 09-21-2022 End: 09-21-[address] Jose Antonio King Work Phone: [facility] Work Phone: Start: 09-21-2022 End: 09-21-[address] Jose Antonio King Work Phone: [facility] Start: 09-01-2022 End: 09-01-[address] Jose Antonio King Work Phone: [facility] Start: 07-07-2022 End: 07-07-[address] Jose Antonio King Work Phone: [facility] Work Phone: Start: 07-07-2022 End: 07-07-[address] Jose Antonio King Work Phone: [facility] Start: 05-22-[address] Jose Antonio King Work Phone: [facility]Physical Therapy Start: 05-04-2022 End: 05-04-[address] Jose Antonio King Work Phone: [facility] Start: 01-21-2022 End: 01-21-2022 Patient encounter procedure [facility] [employer] Procedures Date Procedure Procedure Detail Performing Clinician Start: 06-01-2023 CT of abdomen and pe lvis without contrast Dr. Miesha Foster Work Phone: Start: 05-24-[address] Jack Foster Work Phone: Start: 09-28-[address] Renato King Work Phone: Start: 09-21-2022 MRI of lumbar spine Dr. Jose Antonio King Work Phone: Start: 09-01-2022 X-ray of lumbar spin e, two or three views Dr. Jose Antonio King Work Phone: Plan of Treatment Date Care Activity Detail Author Start: 07-05-2023 Urinalysis complete panel - Urine [facility] Start: 07-05-2023 Vitamin B12 measurement [facility] Start: 05-24-2023 Colonoscopy w/biopsy single/multiple COLONOSCOPY AND BIOPSY [facility] Start: 05-24-2023 Patient discharge [facility] Start: 09-28-2022 US urinary tract Kidney and Bladder [facility] Start: 09-25-2022 [facility] Work Phone: Start: 07-07-2022 Iv infusion therapy/prophylaxis /dx 1st to 1 hr THER/PROPH/DIAG IV INF INIT [facility] Bilirubin measuremen t, urine [facility] Colonoscopy [facility] Hemoglobin [Presence ] in Urine [facility] Measurement of keton es in urine using dipstick [facility] Microscopic urinalysis [facility] Organism count, microscopic method [facility] Patient Education ED Kidney Ston e, Passed ED Kidney Stone with Pain [facility] Work Phone: Patient referral [facility] Work Phone: pH of Urine [facility] Specific gravity of Urine [facility] Urinalysis, blood, qualitative [facility] Urine dipstick for glucose [facility] Urine dipstick for leukocyte esterase [facility] Urine dipstick for nitrite [facility] Urine dipstick for protein [facility] Urine examination [facility] Urine microscopy: epithelial cells [facility] Urobilinogen [Presen ce] in Urine [facility] White blood cell count [facility] Immunizations Immunization Date Immunization Notes Care Provider Rafael spivey 11-04-2017 tetanus toxoid, redu jessika diphtheria toxoid, and acellular pertussis vaccine, adsorbed [facility] Payers Date Payer Category Payer Self-pay [id number] 2024 Unknown 2023 Medicare [id number] 2023 Unknown [id number] 2019 Unknown [id number] Unknown [facility] PACKAGE PLAN [phone] [id number] Unknown [id number] 2.16.8 [id number] Unknown [id number] 2.16.8 [id number] Unknown [id number] 2.16.8 [id number] Unknown [id number] 2.16.8 [id number] Unknown [id number] 2.16.8 [id number] Unknown [id number] 2.16.8 [id number] Unknown [id number] 2.16.8 [id number] Unknown [id number] 2.16.8 [id number] Unknown [id number] 2.16.8 [id number] Social History Date Type Detail Facility Start: 06-11-2020 End: 07-05-2023 Tobacco smoking status WVIS Unknown if ever smoked [facility] Start: 1960 Sex Assigned At Female [facility] NEGATED: Highlighted row [facility] Goals Date Patient Goal Desired Activity /State Mental Status Date Assessment Result Facility 07-22-2023 Cognitive function Awake;Alert;A ppropriate;Fol lows Commands [facility] Work Phone: 05-24-2023 Cognitive function Touch/Shaking [facility] Work Phone: 07-07-2022 Cognitive function Voice/Name [facility] Work Phone: Clinical Notes 07-17-2022 to 07-08-2023 Note Date & Type Note Facility 07-08-2023 Evaluation note Diagnosis Onset Date Colon cancer screening acute Osteoporosis chronic Stage 3a chronic kidney disease (CKD) chronic [place] acute Renal stone acute Hypertension chronic Neuropathy chronic Osteoporosis chronic [facility] Work Phone: 1(108) 504-517901-16-2024 NoteHNO ID: [id number] Author: SHEILA VALDEZ APRN.WAREHOUSE DRIVER Service: ? Author Type: Nurse Practitioner Type: Progress Notes Filed: 07/06/2023 11:06 Note Text: Director Of Government Sales offered: Patient declines. Betsy is a 62 year old who presents for an annual gynecologic exam with complaints, vaginal dryness and pain with intercourse. Postmenopausal: Yes since age 51 HRT use: No. 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 Jul 27. Esophageal reflux 02/02/2006 Heel spur Internal hemorrhoids without mention of complication PMH - PAST MEDICAL HISTORY OF persistant protein in urine Tendonitis of wrist, left PAST SURGICAL HISTORY Procedure Laterality Date BACK SURGERY HX 11/06/2022 COLONOSCOPY FLX DX W/COLLJ SPEC WHEN PFRMD 05/24/2012 Colonoscopy repeat 10 years UNSPECIFIED ORAL SURGERY PROCEDURE, BY REPORT Reading Teeth x4 FAMILY HISTORY Problem Relation Age of Onset Hypertension Mother Heart Mother 6 WAY HEART BYPASS other (Lung Tumor) Mother Non-smoker Prostate Cancer Father Hypertension Sister thyroid dysfunction Breast Cancer Sister 01/03/09 metastic to bones other (MALIGNANT MELANOMA) Sister Diabetes Maternal Grandfather SOCIAL HISTORY Social History Tobacco Use Smoking status: Never Smokeless tobacco: Never Vaping Use Vaping Use: Never used Substance Use Topics Alcohol use: No Drug use: No REVIEW OF SYSTEMS Abdomen: No abdominal pain, nausea, vomiting, diarrhea, or constipation. No bloating, early satiety, indigestion, or increased flatulence. Bladder: No dysuria, gross hematuria, urinary frequency, urinary urgency, or incontinence Breast: No breast lumps, nipple d/c, overlying skin changes, redness or skin retraction Allergies and current medication updated:Yes EXAM: BP 120/84 Ht 5' 5 (1.65m) Wt 158 lb (71.7kg) LMP 03/01/2012 BMI 26.29 kg/(m2). GENERAL: pleasant, female in no apparent distress HEENT: Normocephalic, atraumatic, mucus membranes moist, and no lesions NECK: Supple, full range of motion, no adenopathy, and thyroid normal DERMATOLOGY: Normal, without lesions, non-icteric, and non-hirsute BREAST: soft, non-tender, symmetric, no dominant mass, normal nipple-areolar complex, no lymphadenopathy, and no nipple discharge CHEST: Normal inspiratory effort ABDOMEN: soft, non-tender, and no masses PELVIC: external genitalia normal, normal Bartholin's glands, urethra, [place]'s glands, no vulvar lesions, no cervical lesions, good vaginal support, physiologic discharge present, normal appearing perineal body and perianal region BIMANUAL: uterus normal size, shape and consistency, no adnexal masses, and non-tender RECTOVAGINAL: deferred. NEURO: alert and oriented x3,exam grossly non-focal EXTREMITIES: normal ASSESSMENT/PLAN: 1) Health maintenance: Pap done with HPV. Mammogram ordered - for [facility] Mammogram up to date Nutrition, exercise and routine health maintenance exams reviewed. Calcium/Vitamin D supplementation information provided. Colon cancer screening: up to date with screening follow by PCP BMD: followed by PCP 2) Follow up one year or sooner as needed Estrace cream ordered faxed to [facility] retail pharmacy [facility] Valdez [facility]23 Procedure note [facility]12-04-2023 Procedure [facility] 10-03-2022 Evaluation note* Diagnosis Onset Date Resolution Status Lumbar back pain with radicu lopathy affecting left lower extremity noneactive Herniated nucleus pulposus, L1-2 left acute Stage 3a chronic kidney disease (CKD) [facility] Work Phone: 1(335) 353-641704-10-2023 Evaluation note* Diagnosis Onset Date Resolution Status Lumbar back pain with radicu lopathy affecting left lower extremity noneactive Herniated nucleus pulposus, L1-2 left acute Stage 3a chronic kidney disease (CKD) [facility] Work Phone: 1([phone]) 392-955901-27-2023 Evaluation note* Diagnosis Onset Date Resolution Status Osteoporosis acute Stage 3a chronic kidney disease (CKD) [facility] Work Phone: Evaluation + Plan note No data available for this section [facility] evaluation noteNo assessment information available [facility] Work Phone: evaluation note* Diagnosis Onset Date Resolution Status Colon cancer screening acute [facility] Work Phone: Evaluation note* Diagnosis Onset Date Resolution Status Colon cancer screening acute Osteoporosis chronic Stage 3a chronic kidney disease (CKD) chronic [facility] Work Phone: Evaluation note* Diagnosis Onset Date Resolution Status Colon cancer screening acute Osteoporosis chronic Stage 3a chronic kidney disease (CKD) chronic [place] acute Renal stone acute Hypertension chronic Neuropathy chronic Osteoporosis [facility] Work Phone: History and physical note Author Radha Porter [facility] May 24, 2023 8:08am Note Date/Time May 24, 2023 8 :09am [facility] Medical Records Department [address] [place] [id number] History & Physical Exam 05/24/23 0807 MR#: [id number] Acct: [id number] Name: BETSY ROCHA Rep #:[id number] : 1960 62 From: Radha Porter MD PCP: Dr. Miesha Foster MD Status:R [facility] Location: [place] [address] HPI - General General Date of Admission: 05/24/23 HPI Narrative BETSY ROCHA, is a 62 F who presents for screening colonoscopy. Patient had a colonoscopy 10 years ago negative per patient. Patient denies any family history of colon cancer. Patient has bowel movements almost every day denies any blood. Patient denies any chronic abdominal pain/nausea/vomiting/reflux. [facility] Medical History (Updated 05/19/23 @ 11:25 by Tila Toribio) Alcohol use Arthritis Back pain Cataracts, bilateral Child Colon cancer screening Fractures Gastric reflux Hypertension Injury of head and neck Non-smoker Osteoporosis Persistent headaches Post-menopausal Preventative health care Proteinuria Stage 3a chronic kidney disease (CKD) Vertigo Home Medications lisinopril 5 mg tablet 1 tab PO QHS 90 days ##90 11/04/17 [History Last Taken Unknown] turmeric root extract 1,053 mg tablet 1,076 mg PO DAILY 05/04/22 [History Last Taken Unknown] acetaminophen 650 mg tablet,extended release (Tylenol Arthritis Pain) 650 mg PO Q12H 09/25/22 [History Last Taken Unknown] cyclobenzaprine 5 mg tablet 5 mg PO TID PRN muscle spasm 09/25/22 [History Last Taken Unknown] cholecalciferol (vitamin D3) 125 mcg (5,000 unit) capsule 3,000 unit PO DAILY 01/04/23 [History Last Taken Unknown] denosumab 60 mg/mL subcutaneous syringe 60 mg subcut [id number] 01/04/23 [History Last Taken Unknown] diclofenac sodium 1 % topical gel (Voltaren Arthritis Pain) 2 g topical ONCE 01/04/23 [History Last Taken Unknown] pyridoxine (vitamin B6) 100 mg tablet 100 mg PO DAILY 01/04/23 [History Last Taken Unknown] Allergy/AdvReac Type Severity Reaction Status Date / Time bee venom protein (honey bee) Allergy Intermediate internal Verified 05/24/23 07:45 itching clindamycin Allergy Mild Rash Verified 05/24/23 07:45 Sulfa (Sulfonamide Allergy Mild Rash Verified 05/24/23 07:45 Antibiotics) Family History (Updated 02/18/23 @ 14:04 by Ritu Black) Mother Lung cancer Myocardial infarction Heart disease Hypertension Cancer SKIN-BASAL CELL Sister Osteoporosis Breast cancer Other Dementia Surgical History (Updated 05/19/23 @ 11:25 by Tila Toribio) Hx of colonoscopy Hx of decompressive lumbar laminectomy Social History Smoking Status: Never smoker alcohol intake: current alcohol intake frequency: holidays/special occasions only Alcohol type: wine substance use type: does not use what type of physical activity do you participate in: weight training frequency: 3-4 times per week seatbelt use: always do you feel safe at home: Yes Past Medical/Surgical History Planned Operation Planned Operative Procedure/s: CSCOPE OA Previous Hospitalizations/Surgeries HX Hospitalizations: No Any Problems With Anesthesia: No You/Your Family Experience Fever (Hyperthermia) With Anes: No Cholinesterase deficiency: No Cardiovascular Hx Hypertension: Yes (CONTROLLED WITH MED) Respiratory Hx Chronic Obstructive Pulmonary Disease (COPD): No Hx Asthma: No Hx Emphysema: No Hx Sleep Apnea: No Hx Respiratory Tract Infection/Cold (presently): No Do You Snore Loudly (louder than talking or can be heard): Yes Do You Often Feel Tired/ Fatigued/ Sleepy Dring Daytime?: No Has Anyone Observed You Stop Breathing During Sleep?: No Result (for STOP score): Positive Smoking Status: Never smoker Neurological Hx Seizures: No Does patient have nerve stimulator: No Reproduction : No Genitourinary Hx Renal Disease: Yes (proteinuria-see Dr. Allen) Endocrine Hx Diabetes: No Miscellaneous Hx Cancer: No Recent Exposure to Contagious Disease: No Allergies bee venom protein (honey bee) Allergy (Intermediate, Verified 05/24/23 07:45) internal itching clindamycin Allergy (Mild, Verified 05/24/23 07:45) Rash Sulfa (Sulfonamide Antibiotics) Allergy (Mild, Verified 05/24/23 07:45) Rash Discharge Is Pt Admitted From a Correction, or a Senior Living: No After D/C, Where Do you Plan to Go: Return Home From the [facility] History Number of Risk Factors: 1 Vital Signs Vital Signs Vital Signs: 05/24/23 07:48 05/24/23 07:48 Temperature 97.8 F Temperature Source Temporal Pulse Rate 80 Respiratory Rate 16 Respiratory Pattern Normal Blood Pressure 119/74 Blood Pressure Mean 89 Blood Pressure Source Monitor Blood Pressure Position Sitting Pulse Ox 99 Oxygen Delivery Method Room Air Weight Weight: 149 lb 14.629 oz Body Mass Index (BMI) 24.9 Physical Exam Const alert, oriented x3 and no apparent distress HEENT normocephalic and head/scalp atraumatic Resp normal respiratory effort Cardio regular rate GI soft to palpation and non-tender; Negative for non-distended Palpation: Negative for guarding Extremity no clubbing, cyanosis or edema Skin no rashes or lesions noted Neuro CN's II-XII intact bilaterally Psych mental status grossly normal Assessment & Plan Assessment/Plan (1) Colon cancer screening: Surgery Risks - Colonoscopy I discussed with the patient the risks of the procedure: Yes Risks Include but are not Limited To: Risks include but are not limited to: Bleeding, perforation requiring further surgery, inability to complete colonoscopy requiring barium enema. 05/24/23 0808 <Electronically signed by Radha Porter MD> Cosigner Signature (if applicable): CC: Dr. Miesha Foster MD; Dr. Radha Porter MD~ Signed [facility] Work Phone: Hospital Discharge instructions No data available for this section [facility] Progress note No data available for this section [facility] Family History No Family History Records Found Relationship Condition Age at Onset Recorded Date/T val[place] Not Specified Dementia Unknown Cardiac disease Unknown Malignant neoplasm of breast Unknown Malignant neoplasm of lung Unknown Malignant neoplasm Unknown Relationship Condition Age at Onset Recorded Date/T val[place] Not Specified Dementia Unknown mother Malignant neoplasm of lung Unknown Myocardial infarction Unknown Cardiac disease Unknown Hypertension Unknown Malignant neoplasm Unknown sister Osteoporosis Unknown Malignant neoplasm of breast Unknown Advance Directives No Advanced Directives Records Found Advance Directive Response Recorded Date/ Time Living Will Yes June 11 12:32pm Power of Engineer Process Yes June 11, 2020 12:32pm Advance Directive Response Recorded Date/ Time Living Will Yes June 11 11:32am Power of Engineer Process Yes June 11, 2020 11:32am Advance Directive Response Recorded Date/ Time Name of Medical Power of Engineer Process SPOUSE May 19, 2023 11:17am Living Will Yes May 19 11:17am Power of Engineer Process Yes May 19, 2023 11:17am Advance Directive Response Recorded Date/ Time Name of Medical Power of Engineer Process SPOUSE May 19, 2023 11:17am Name of Medical Power of Engineer Process Sid Rocha, Freddy Rocha, Cindi hdez June 01, 2023 3:39am Living Will No June 01 3:39am Power of Engineer Process Yes June 01, 2023 3:39am Chief Complaint and Reason for Visit Chief Complaint 1 Y FU LUMBAGO,SCIATICA/RX HERE RECLAST Reason for Visit Osteoporosis Stage 3a chronic kidney disease (CKD) Chief Complaint RECLAST LEFT HIP room 2 LUMBAR BACK PAIN LUMBER SPINE ABNORMALITY ON MRI Reason for Visit Lumbar back pain wit h radiculopathy affecting left lower extremity Herniated nucleus pulposus, L1-2 left Stage 3a chronic kidney disease (CKD) Chief Complaint Amb Documentation Reason for Visit Colon cancer screeni ng Chief Complaint Amb Documentation rib pain Reason for Visit Colon cancer screeni ng Chief Complaint rib pain 1 Y FU 6 m fu Reason for Visit Colon cancer screeni ng Osteoporosis Stage 3a chronic kidney disease (CKD) Chief Complaint rib pain 1 Y FU 6 m fu Reason for Visit Colon cancer screeni ng Osteoporosis Stage 3a chronic kidney disease (CKD) Falls Renal stone Hypertension Neuropathy Osteoporosis Chief Complaint rib pain 1 Y FU 6 m fu RECLAST Reason for Visit Colon cancer screeni ng Osteoporosis Stage 3a chronic kidney disease (CKD) Falls Renal stone Hypertension Neuropathy Osteoporosis Summary Purpose Additional Source Comments Goals (unrecognized section and content) Goals may be documented in a n alternate sectionGoals may be documented in an alternate sectionGoals may be documented in an alternate section No data available for this sectionGoals may be documented in an alternate section Care Teams (unrecognized sec tion and content) Team Status: Active Member Role Status Dates Dr. Jose Antonio King MD Family Provider Active Dr. Jose Antonio King MD Primary Care Provider Active Team Status: Inactive Member Role Status Dates Dr. Jose nAtonio King MD Primary Care Provider, Referring Provider Active Dr. Devon Black MD Attending Provider Active Team Status: Active Member Role Status Dates Dr. Jose Antonio King MD Primary Care Provi reyna, Attending Provider, Referring Provider Active Team Status: Inactive Member Role Status Dates Dr. Jose Antonio King MD Primary Care Provider Active Dr. Devon Black MD Attending Provider, Referring Provi reyna Active Team Status: Active Member Role Status Dates Dr. Jose Antonio King MD Family Provider Active Dr. Serina Summers MD Primary Care Provider Active Team Status: Inactive Member Role Status Dates Dr. Jose Antonio King MD Primary Care Provider, Referring Provider Active MINISTERIO Guzman Attending Provider Active Team Status: Inactive Member Role Status Dates Dr. Jose Antonio King MD Primary Care Provider Active Dr. Manolo Canales MD Attending Provider Active Team Status: Inactive Member Role Status Dates Dr. Serina Summers MD Primary Care Provider, Referrin g Provider Active Dr. Juan Francisco Guardado DO Attending Provider Active Team Status: Inactive Member Role Status Dates MINISTERIO Guzman Attending Provider, Referring Provi reyna Active Dr. Serina Summers MD Primary Care Provider Active Team Status: Active Member Role Status Dates Dr. Serina Summers MD Primary Care Prov ider, Attending Provider, Referring Provider Active Team Status: Inactive Member Role Status Dates Dr. Serina Summers MD Primary Care Prov ider, Attending Provider, Referring Provider Active Team Status: Active Member Role Status Dates Dr. Jose Antonio King MD Family Provider Active Dr. Miesha Foster MD Primary Care Provider Active Team Status: Active Member Role Status Dates Dr. Miesha Foster MD Primary Care Provider Active Ritu Black Attending Provider Active Team Status: Active Member Role Status Dates Dr. Miesha Foster MD Primary Care Provider, Refer ring Provider Active Dr. Radha Porter MD Attending Provider, Other Pro vider Active Team Status: Inactive Member Role Status Dates Dr. Miesha Foster MD Primary Care Provider, Refer ring Provider Active Dr. Radha Porter MD Attending Provider Active Team Status: Inactive Member Role Status Dates Dr. Miesha Foster MD Primary Care Provider Active Dr. Dirk Watson MD Attending Provider, Re ferring Provider Active Team Status: Inactive Member Role Status Dates Dr. Miesha Foster MD Primary Care Provider Active Dr. Liam Arango DO Emergency Provider Active Team Status: Inactive Member Role Status Dates Dr. Jose Antonio King MD Referring Provider Active Dr. Devon Black MD Attending Provider Active Dr. Miesha Foster MD Primary Care Provider Active Team Status: Inactive Member Role Status Dates Dr. Miesha Foster MD Primary Care P rovireyna, Attending Provider, Referring Provider Active Team Status: Inactive Member Role Status Dates Dr. Miesha Foster MD Primary Care Provider Active Dr. Devon Black MD Attending Provider, Referring Provi reyna Active Team Status: Active Member Role Status Dates Dr. Miesha Foster MD Primary Care P rovireyna, Attending Provider, Referring Provider Active Team Status: Inactive Member Role Status Dates Dr. Miesha Foster MD Primary Care Provider Active Dr. Liam Arango DO Attending Provider, Emergency Pro vider Active Team Status: Inactive Member Role Status Dates Dr. Miesha Foster MD Primary Care Provider Active JAYNA Pressley Attending Provider, Referring Pr torier Active INFORMATION SOURCE (unrecogn ized section and content) DATE CREATED AUTHOR 07/10/2023 [facility] DATE CREATED AUTHOR AUTHOR'S ORGANIZ ATION 01/12/2025 [facility] FOR RECORDS PERTAINING TO PATIENTS WHO ARE [...] BE BASED ON THE PRIMARY CLINICAL RECORDS. [facility] [employer] [facility] provides no warranty or guarantee of the accuracy or completeness of information in this document.
== END | disposition home or self-care (01) ==
LOC: OPBI 08:10
PROVIDERS: PCP Internal Medicine; Referring Provider Internal Medicine; Visit Provider Internal Medicine
DX: Z12.31 Encounter for screening mammogram for malignant neoplasm of breast (principal)
CPT/HCPCS: 77063; 77067